=== PATIENT | female | born 1945 | race Caucasian/White ===

== ENCOUNTER 2019-10-19 14:12 | Outpatient (RCR) | payer MEDICARE, MEDICAID, SELFPAY | END 2019-10-27 00:01 | LOC: WOUND 14:12 | PROVIDERS: Family Provider Nurse Practitioner Family; Visit Provider Nurse Practitioner Family | DX: E11.621 Type 2 diabetes mellitus with foot ulcer (principal); L97.512 Non-pressure chronic ulcer of other part of right foot with fat layer exposed; E11.622 Type 2 diabetes mellitus with other skin ulcer; L97.802 Non-pressure chronic ulcer of other part of unspecified lower leg with fat layer exposed; I96 Gangrene, not elsewhere classified | CPT/HCPCS: G0463 ==

== ENCOUNTER 2019-10-30 13:23 | Outpatient (CLI) | payer MEDICARE, MEDICAID, SELFPAY ==
--- NOTE | 2019-10-30 13:49 | MR_ITS ---
WS: [id number] MRI of the right foot, 10/30/2019 Clinical Data: PERIPHERAL SENSORY NEUROPATHY DUE TO TYPE 2 DIABETES MELLITU Comparison: Right foot x-ray, 10/08/2019 Findings: There is increased abnormal signal over the distal aspect of the right second toe. This abnormal sign al could be secondary to osteomyelitis involving the distal phalanx. The remainder of the toes shows no abnormal signal. No phalangeal fractures are seen. The metatarsals and tarsals are normal. The sof t tissues show no subcutaneous abscess. MR/MR foot RT wo con* [id number] Impression: 1. Abnormal signal of the distal phalanx of the right second toe consistent wit h osteomyelitis. 2. The remainder the right foot is unremarkable.
== END 2019-10-30 13:24 | disposition home or self-care (01) ==
PROVIDERS: Family Provider Nurse Practitioner Family; PCP Nurse Practitioner Family; Visit Provider Podiatrist Foot & Ankle Surgery
DX: E11.42 Type 2 diabetes mellitus with diabetic polyneuropathy (principal)
CPT/HCPCS: 73718

== ENCOUNTER 2019-11-05 15:29 | Inpatient (IN) | payer MEDICARE, MEDICAID, SELFPAY ==
[2019-11-05 15:54] VITALS: BMI 30.9
[2019-11-05 17:02] LABS: Glucose Point of Care 210 mg/dL (70-110)
[2019-11-05 17:10] VITALS: RESP 18
--- NOTE | 2019-11-05 17:10 | USCV_ITS ---
Deisi Rivers Age: 73 Gender: F : 1945 Exam Date: 11/05/2019 18:12 Ordering Phys: Juan Bustamante MD Technologist: Exam Location: [facility] – [place]_ Indication: RT 2ND TOE AND LT 1ST TOE WOUND RIGHT LEFT Brachial 192.00 mmHg Brachial 160.00 mmHg Pressure (mmHg) Waveform Pressure (mmHg) Waveform POLITICAL GEOGRAPHER Monophasi c Monophasic DPA Monophasi c Pre-Exercise Toe Pressure 76.00 37.00 0.19 Pre-Exercise Toe/Brachial Index 0.40 FINDINGS Normal resting TBIs bilaterally No Doppler flow signals in the right posterior tibial artery CONCLUSIONS 1. Markedly diminished resting TBI on the right side, suggestive of severe peripheral arterial disease with a possible occlusion of the posterior tibial artery. 2. Abnormal resting TBI on the left side, suggestive of moderate peripheral arterial disease Dr Monica Sharma MD FACC (Electronically Signed) Final Date: 06 November 2019 19:27 S
--- NOTE | 2019-11-05 17:10 | ECG_ITS ---
Measurements Intervals [place] Rate: 97 P: 52 CA: 144 QRS: 20 QRSD: 93 T: 73 QT: 358 QTc: 455 SINUS RHYTHM WITH OCCASIONAL ECTOPIC PREMATURE COMPLEXES NONSPECIFIC ST & T-WAVE ABNORMALITY No previous ECG available for comparison Electronically Signed On 11-05-2019 19:00:49 SHOE STITCHER by Corazon Ordonez M.D. [email or web address]
--- NOTE | 2019-11-05 17:10 | XR_ITS ---
WS: [id number] Portable AP upright chest, 11/05/2019 Clinical Data: preop Comparison: None. Findings: No nodules, masses or effusions are seen. The heart is normal. The pulmonary vascularity is not increased. No pneumonia or pneumothorax is seen. The aortic arch and descending aorta show mild tortuosity. There is minimal atelectatic changes at the left costophrenic angle. XR/XR chest 1V portable [id number] Impression: Atherosclerosis.
--- NOTE | 2019-11-05 17:21 | P.HP_ITS ---
Providers/Chief Complaint Admitting Physician: Juan Bustamante MD Primary Care Provider: JAYLIN Gonzáles Chief Complaint: right 2nd toe oseomyelitis History of Present Illness Deisi Rivers is a 73 year old female with a past medical history of type 2 diabetes mellitus, insulin-dependent, chronic knee pain, iron deficiency anemia, dementia on memantine, asthma on albuterol, who presents to [facility] from a direct admit from Dr. Corral's office for concerns for osteomyelitis of the distal phalanx right second toe. Dr. Corral was admitted, for debridement tomorrow, medical service has been consulted for medical management. Patient denies any chest pain, palpitations, lightheadedness, dizziness, shortness of breath, abdominal pain. Denies any significant cardiac history, denies history of stents, denies a history of heart failure. Denies a history of blood clots. Denies a history of COPD. Denies history of smoking. Denies any history with anesthesia in the past. Review of Systems Const: Denies: fever or chills Eyes: Denies: blurry vision ENMT: Denies: nasal discharge Card: Denies: chest pain, palpitations, irregular heart rhythm, lightheadedness or syncope Resp: Denies: shortness of breath, productive cough or non-productive cough GI: Denies: abdominal pain, nausea or vomiting : Denies: flank pain, difficulty urinating or painful urination Musc: Denies: neck pain or back pain Skin/Breast: Denies: rash Neuro: Denies: headache, weakness in extremities or dizziness Psych: Reports: memory loss; Denies: anxiety or depression Endo: Denies: excessive urination or excessive thirst Medications/Allergies Allergies Allergy/AdvReac Type Severity Reaction Status Date / Time citalopram [From Celexa] Allergy ALGY-Hives Verified 11/05/19 11:33 meloxicam Allergy ALGY-Hives Verified 11/05/19 11:33 shellfish derived Allergy ALGY-Difficulty Verified 11/05/19 11:33 Swallowing Additional Medication Information Additional Medication Information: Aspirin 81 mg once daily Celecoxib 200 mg twice daily Vitamin D3 Ferrous sulfate 325 twice daily Hydroxyzine 25 mg at bedtime Levemir 25 units at bedtime 70 30 70 units every morning, 45 units at supper Memantine 28 daily Metformin thousand twice daily Sertraline 50 mg at bedtime Crestor 20 mg once daily Omeprazole 20 mg twice daily PFSH Acute PFSH: Statuses (acute, chronic, etc) shown below reflect problem list status as previously entered and may not be historically accurate Medical History (Updated 11/05/19 @ 17:40 by Juan Bustamante MD) Dementia (Acute) Neuropathy (Acute) Post-tonsillectomy pain (Acute) PVD (peripheral vascular disease) (Acute) Type 2 diabetes mellitus with diabetic polyneuropathy (Acute) Surgical History (Updated 11/05/19 @ 17:40 by Juan Bustamante MD) History of tonsillectomy (Acute) Social History Smoking and tobacco status: never smoked Second hand smoke exposure: No Alcohol intake: never Vitals/I&O/Wt Weight last 48 hrs Weight 97.976 kg Physical Exam Const: COMMON NORMALS: no apparent distress and no limitations EXAM LIMITATIONS: no altered mental status GENERAL APPEARANCE: cooperative and comfortable HENMT: COMMON NORMALS: normocephalic Eye: COMMON NORMALS: PERRL and EOMs intact bilaterally Neck/C-Spine: COMMON NORMALS: full ROM, no lymphadenopathy and no JVD Lymph: LYMPHATIC: no lymphadenopathy noted Resp: COMMON NORMALS: normal respiratory effort, no retractions, no use of accessory muscles and clear to auscultation bilaterally Cardio: COMMON NORMALS: no JVD, regular rate, regular rhythm, S1 normal heart sound, S2 normal heart sound and peripheral pulses 2+ throughout (1+ DP PT pulses bilaterally) GI: COMMON NORMALS: normal to inspection, nondistended, normoactive bowel sounds, soft to palpation, non-tender, no hepatosplenomegaly, no masses and no bruits : COMMON NORMALS: Yes no CVA tenderness Back/Pelvis: COMMON NORMALS: no CVA tenderness and thoracic and lumbar spine normal to inspection Extremity: COMMON NORMALS: normal capillary refill, no clubbing, cyanosis or edema and no pedal edema NARRATIVE EXTREMITY EXAM: Right lower extremity, right foot, second digit, erythema/swelling/overlying skin changes of the digit Left foot, first digit, erythema/swelling, overlying skin changes of the digit Left villarreal, erythema, swelling, 2 x 2 cm, round Neuro: COMMON NORMALS: CN's II-XII intact bilaterally, moves all extremities, no focal motor deficits and no sensory deficits noted SENSORIUM/ORIENTATION: Yes alert, Yes oriented to person and Yes oriented to place SPEECH: speech normal MOTOR EXAM: strength 5/5 throughout Psych: COMMON NORMALS: mental status grossly normal APPEARANCE: Yes grossly normal ATTITUDE: Yes calm MEMORY/COGNITION: Yes memory grossly impaired Impared memory type(s): short term A&P Assessment and plan (1) Osteomyelitis of foot: -Right foot, second digit shows Abnormal signal of the distal phalanx of the right second toe consistent with osteomyelitis -Will have a debridement by Dr. Corral in the operating room tomorrow -Postoperative risk: -No history of CAD, no history of CHF, no history of COPD, no history of DVT or PE, no history of abnormal anesthesia reactions. No active chest pain, no shortness of breath. Does report history of carotid artery disease 10 years ago, status post carotid endarterectomy. No lightheadedness, no dizziness. -EKG shows normal sinus rhythm, PVCs, no significant ST-T wave changes, NC interval 144 ms, QTC 455 ms -Patient is a intermediate risk for low risk procedure Plan: -N.p.o. midnight, IV fluids over midnight -Surgical procedure tomorrow by Dr. Corral -We will obtain ABIs bilateral lower extremities -Hemoglobin A1c, CBC, CMP set, CRP, ESR, chest x-ray Status: Acute Code(s): M86.9 - Osteomyelitis, unspecified (2) Depression: Status: Acute Code(s): F32.9 - Major depressive disorder, single episode, unspecified Attestations Medical Necessity Statement*: Patient requires hospitalization, inpatient, greater than 2 minutes, for right foot osteomyelitis Coding Level of Care Code Acute Manager Property for [facility] Fwd Exam Problem Focused Diagnoses Osteomyelitis of foot M86.9 Depression F32.9
[2019-11-05] MEDS: heparin 5,000 unit/mL INJ 1 mL 5000 UNIT SUBCUT (17:51)
[2019-11-05] MEDS: sertraline 50 mg Tablet PO (17:51)
[2019-11-05] MEDS: pantoprazole DR 40 mg Tablet PO (17:52)
[2019-11-05] MEDS: ferrous sulfate EC 325 mg Tablet PO (17:52)
[2019-11-05 18:18] LABS: Basophils # 0.1 10^3/uL (0.0-0.1); Basophils % 0.7 %; Eosinophils # 0.4 10^3/uL (0.0-0.8); Eosinophils % 3.4 %; Hematocrit 34.2 % (37.0-47.0); Hemoglobin 9.9 g/dL (11.5-15.3); Lymphocytes # 2.2 10^3/uL (0.8-4.8); Lymphocytes % 19.9 %; Mean Corpuscular HGB Conc 28.9 g/dL (30.0-36.0); Mean Corpuscular Volume 93.2 fL (81-99); Mean Platelet Volume 9.2 fL (7.4-10.4); Monocytes # 0.7 10^3/uL (0.2-0.9); Monocytes % 6.5 %; Neutrophils # 7.6 10^3/uL (1.8-7.7); Neutrophils % 69.2 %; Nucleated Red Blood Cells % 0 %; Platelet Count 392 10^3/cmm (130-400); Red Blood Count 3.67 10^6/uL (4.1-5.3); Red Cell Distribution Width 18.6 % (12.1-15.1)
[2019-11-05 18:29] LABS: Alanine Aminotransferase 15 U/L (0-33); Albumin Level 3.7 g/dL (3.5-5.2); Alkaline Phosphatase 84 IU/L (35-105); Aspartate Amino Transferase 21 U/L (0-32); Blood Urea Nitrogen 34 mg/dL (8-23); C Reactive Protein 4.6 mg/L (0.0-4.9); Calcium 9.6 mg/Dl (8.8-10.2); Carbon Dioxide 26 mmol/L (22-29); Chloride 103 mmol/L (98-107); Glucose 242 mg/dL (74-106); Sodium 142 mmol/L (136-145); Total Bilirubin 0.2 mg/dL (0.15-1.2); Total Protein 7.7 g/dL (6.6-8.7)
--- NOTE | 2019-11-05 18:34 | XR_ITS ---
WS: [id number] Left foot, 3 views, 11/05/2019 Clinical Data: Left hallux wound Comparison: Left foot, 10/08/2019. Findings: No fractures or dislocations are seen. No bone destruction or erosion is noted. The joint spaces and soft tissues are normal. There is a dressing surrounding the left great toe. A small Achilles spur is present. XR/XR foot LT min 3V* [id number] Impression: Negative for osteomyelitis or fracture.
[2019-11-05 18:50] LABS: Estmated Average Glucose 134; Hemoglobin A1C 6.3 % (4.0-6.0)
[2019-11-05 18:57] LABS: Procalcitonin 0.04 ng/mL (0-0.8)
[2019-11-05 19:14] LABS: Erythrocyte Sedimentation Rate 84 mm/hr (0-15)
[2019-11-05 20:00] VITALS: BP 167/85; PULSE 105; RESP 20; TEMP 36.7; O2SAT 93
[2019-11-05 21:18] LABS: Glucose Point of Care 279 mg/dL (70-110)
[2019-11-05] MEDS: hyDROXYzine 25 mg Capsule PO (21:42)
[2019-11-05] MEDS: dextrose 5%-sod chloride 0.9% 1,000 ML 100 ML IV (22:15)
[2019-11-06] VITALS (18 sets, daily range): BP systolic 110–198; BP diastolic 64–110; PULSE 80–116; RESP 10–20; TEMP 36.2–37.3; O2SAT 91–99
[2019-11-06 04:44] LABS: Basophils # 0.1 10^3/uL (0.0-0.1); Basophils % 0.8 %; Eosinophils # 0.3 10^3/uL (0.0-0.8); Eosinophils % 3.8 %; Hemoglobin 8.9 g/dL (11.5-15.3); Lymphocytes # 2.5 10^3/uL (0.8-4.8); Lymphocytes % 28.8 %; Mean Corpuscular HGB Conc 29.7 g/dL (30.0-36.0); Mean Corpuscular Hemoglobin 27.3 pg (28.0-34.0); Mean Platelet Volume 9.5 fL (7.4-10.4); Monocytes # 0.7 10^3/uL (0.2-0.9); Monocytes % 8.4 %; Neutrophils % 57.9 %; Nucleated Red Blood Cells % 0 %; Platelet Count 343 10^3/cmm (130-400); Red Blood Count 3.26 10^6/uL (4.1-5.3); Red Cell Distribution Width 18.3 % (12.1-15.1); White Blood Count 8.7 10^3/uL (4.0-10.0)
[2019-11-06 05:39] LABS: Alanine Aminotransferase 10 U/L (0-33); Albumin Level 3.2 g/dL (3.5-5.2); Alkaline Phosphatase 66 IU/L (35-105); Anion Gap 12.7 (5-19); Aspartate Amino Transferase 13 U/L (0-32); Blood Urea Nitrogen 29 mg/dL (8-23); Calcium 9.1 mg/Dl (8.8-10.2); Carbon Dioxide 26 mmol/L (22-29); Chloride 104 mmol/L (98-107); Globulin 3.1 g/dL (1.3-4.6); Glucose 300 mg/dL (74-106); Potassium 4.7 mmol/L (3.5-5.1); Sodium 138 mmol/L (136-145); Total Bilirubin 0.3 mg/dL (0.15-1.2); Total Protein 6.3 g/dL (6.6-8.7)
--- NOTE | 2019-11-06 06:34 | P.PN_ITS ---
Subjective Subjective: Interval history: Patient seen bedside in preop her son and daughter are present. She has been n.p.o. since midnight in preparation for right second toe amputation secondary to osteomyelitis. Patient denies any acute events overnight. Patient denies any subjective nausea, vomiting, fever, chills, shortness of breath or chest pain. Vitals/I&O/Wt Last Vital Signs Temp 97.5 F L 11/06/19 04:00 Pulse 95 11/06/19 04:00 Resp 18 11/06/19 04:00 BP 161/79 11/06/19 04:00 Pulse Ox 97 11/06/19 04:00 11/05/19 11/05/19 11/06/19 14:59 22:59 06:59 Intake Total 240 / 240 Output Total 301 / 301 Balance 240 / 240 -301 / -61 Weight last 48 hrs Weight 208 lb 11.2 oz Weight 216 lb Physical Exam Narrative: EXAM NARRATIVE: Patient is alert and oriented ?3 and in no acute distress. The following is a focused bilateral lower extremity exam. Patient is accompanied by her daughter. VASCULAR: Dorsalis pedis artery is faintly palpable bilaterally. Posterior tibial artery palpable +2 bilaterally. Capillary refill time less than 3 seconds to the distal hallux bilaterally. Calf is supple and nontender proximally and distally. Decreased pedal hair growth noted bilateral lower extremity. Pitting edema to the lower extremities bilaterally. NEUROLOGICAL: Protective sensation intact 0/10 sites, tested with [place] [employer] monofilament to bilateral feet. DERMATOLOGICAL: Full-thickness wound to right second toe nailbed with absent nail measures 1 cm x 1 cm x 0.2 cm there is also a wound to the dorsum of the right second toe at the level of the proximal interphalangeal joint measuring 2.4 cm x 0.2 cm x 0.2 cm which is macerated, localized erythema to the right second toe, serous drainage present. There is a wound to the left dorsal midfoot measures 0.8 cm x 0.4 cm x 0.1 cm, left dorsal hallux wound measures 0.6 cm x 0.4 cm x 0.1 cm, these wounds demonstrate epithelialized margin no purulent drainage no surrounding erythema. New wound to left anterior leg consistent wit h venous insufficiency with serous drainage no purulence or surrounding erythema. There is a wound to the lateral left midfoot limited to breakdown of skin measures 1.3 cm x 1.3 cm. Lower extremity integument is thin and atrophic with decreased texture and turgor has shiny appearance. Rubor to bilateral feet more prominent at the toes. MUSCULOSKELETAL: Muscle strength 5 out of 5 in all 3 cardinal planes to bilateral foot and ankle. No pain with posterior calf squeeze bilaterally. Tenderness to palpation at noted wounds. A&P Assessment and plan (1) Osteomyelitis of foot: Planning on partial amputation right second toe secondary to osteomyelitis at distal phalanx. Will disarticulated at proximal interphalangeal joint this will be 2 joints back from distal phalanx and should be curative planning on 2 weeks of oral antibiotics on discharge if clean margins are obtained. Patient n.p.o. since midnight in preparation for surgery today. 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
[2019-11-06 06:48] LABS: Glucose Point of Care 274 mg/dL (70-110)
[2019-11-06] MEDS: pantoprazole DR 40 mg Tablet PO (08:50)
[2019-11-06] MEDS: dextrose 5%-sod chloride 0.9% 1,000 ML 100 ML IV (08:50)
[2019-11-06] MEDS: ferrous sulfate EC 325 mg Tablet PO ×2 (08:50→18:38)
[2019-11-06 11:39] LABS: Glucose Point of Care 262 mg/dL (70-110)
[2019-11-06 13:14] LABS: Ferritin 22 ng/mL (15-150); Iron 46 ug/dL (37-145); Percent Saturation 15.7 % (20-50); Total Iron Binding Capacity 292 mg/dL; Unsaturated Iron Binding 246 ug/dL (112-347)
--- NOTE | 2019-11-06 13:23 | ANES.PREANES ---
Pre-Anesthetic Assessment Pre-Anesthetic Assessment: Height/Weight: Height 1.78 m Weight 94.665 kg Temp Pulse Resp BP Pulse Ox 97.9 F 86 18 164/67 98 11/06/19 11:34 11/06/19 11:34 11/06/19 11:34 11/06/19 11:34 11/06/19 11:34 Preop Diagnosis: R 2nd toe - infection Proposed Procedure: Operation Date: 11/06/19 13:45 Proposed Procedures p Amputation Toe/s right second toe amputation(Right) - Lenin Corral DPM Operation Date: 11/06/19 14:40 Proposed Procedures p Amputation Toe/s(Right) - Lenin Corral DPM Familial anesthetic complications: No trouble with anesthesia Was Beta Michele taken within 24 hours: N/A Last intake: Intake Last Liquid Date 11/05/19 Last Liquid Time 22:00 Last Solid Date 11/05/19 Last Solid Time 17:00 Social: Social History: No alcohol and No tobacco Exam: Pre-Anes Outpt Exam: alert Airway: Cervical ROM: WNL MP: 2 Additional comments: missing teeth Pulmonary: Pulmonary: None reported CV/HEM: CV/HEM: HTN : : None reported Hepatic: Hepatic: None reported GI: GI: GERD Metabolic: Metabolic: DM and Morbid obesity Musc/skel: Comments: R 2nd toe infection Neuropsych: Neuropsych: None reported Anesthetic Plan: ASA status: II Anesthesia: MAC Risk of > 500 ml blood loss (7ml/kg in children): No Meds/Allergies Current Medications: Current Medications Generic Name Dose Route Start Last Admin Trade Name Freq PRN Reason Stop Dose Admin Ferrous Sulfate 325 mg 11/05/19 18:00 11/06/19 08:50 Ferrous Sulfate PO 325 mg BID ASTON Administration Heparin Sodium (Be ef Lung) 5,000 unit 11/05/19 17:15 11/06/19 08:50 Heparin SUBCUT Not Given Q8H ASTON Hydroxyzine Pamoat e 25 mg 11/05/19 21:00 11/05/19 21:42 Vistaril PO 25 mg BEDTIME ASTON Administration Dextrose/Sodium Ch loride 1,000 mls @ 100 m ls/hr 11/05/19 18:35 11/06/19 08:50 Dextrose 5%-Sod Chloride 0.9% IV 100 mls/hr .Q10H ASTON Administration Insulin Detemir 20 unit 11/05/19 21:00 11/05/19 21:50 Levemir SUBCUT 20 unit BEDTIME ASTON Administration Non-Formulary Medi cation 28 mg 11/06/19 09:00 11/06/19 08:48 Memantine PO Not Given DAILY ASTON Pantoprazole Sodiu m 40 mg 11/06/19 09:00 11/06/19 08:50 Protonix PO 40 mg DAILY ASTON Administration Sertraline HCl 50 mg 11/05/19 17:15 11/05/19 17:51 Zoloft PO 50 mg Q24H ASTON Administration Additional Medication Information: Aspirin 81 mg once daily Celecoxib 200 mg twice daily Vitamin D3 Ferrous sulfate 325 twice daily Hydroxyzine 25 mg at bedtime Levemir 25 units at bedtime 70 30 70 units every morning, 45 units at supper Memantine 28 daily Metformin thousand twice daily Sertraline 50 mg at bedtime Crestor 20 mg once daily Omeprazole 20 mg twice daily PFSH Anesthesia PFSH: Medical History (Updated 11/05/19 @ 17:40 by Juan Bustamante MD) Dementia (Acute) Neuropathy (Acute) Post-tonsillectomy pain (Acute) PVD (peripheral vascular disease) (Acute) Type 2 diabetes mellitus with diabetic polyneuropathy (Acute) Surgical History (Updated 11/05/19 @ 17:40 by Juan Bustamante MD) History of tonsillectomy (Acute) Social History Smoking and tobacco status: never smoked Second hand smoke exposure: No Alcohol intake: never Data Anesthesia Labs: Other Labs: Laboratory Results - last 48 hr 11/05/19 11/05/19 11/05/19 16:44 18:05 18:05 WBC 11.0 H RBC 3.67 L Hgb 9.9 L Hct 34.2 L MCV 93.2 MCH 27.0 L MCHC 28.9 L RDW 18.6 H Plt Count 392 MPV 9.2 Neut % (Auto) 69.2 Lymph % (Auto) 19.9 [place] % (Auto) 6.5 Eos % (Auto) 3.4 Baso % (Auto) 0.7 Reticulocyte % (Au to) Neut # (Auto) 7.6 Lymph # (Auto) 2.2 [place] # (Auto) 0.7 Eos # (Auto) 0.4 Baso # (Auto) 0.1 Nucleated RBC % (a uto) 0 Nucleated RBCs # 0.0 ESR 84 H PT INR Sodium Potassium Chloride Carbon Dioxide Anion Gap BUN Creatinine Glucose POC Glucose 210 Estimat Average Gl ucose Hemoglobin A1c Calcium Iron TIBC % Saturation Unsat Iron Binding Ferritin Total Bilirubin AST ALT Alkaline Phosphata se C-Reactive Protein Total Protein Albumin Globulin Procalcitonin 11/05/19 11/05/19 11/05/19 18:05 18:05 18:05 WBC RBC Hgb Hct MCV MCH MCHC RDW Plt Count MPV Neut % (Auto) Lymph % (Auto) [place] % (Auto) Eos % (Auto) Baso % (Auto) Reticulocyte % (Au to) Neut # (Auto) Lymph # (Auto) [place] # (Auto) Eos # (Auto) Baso # (Auto) Nucleated RBC % (a uto) Nucleated RBCs # ESR PT 12.40 INR 0.90 Sodium 142 Potassium 5.0 Chloride 103 Carbon Dioxide 26 Anion Gap 18.0 BUN 34 H Creatinine 1.4 H Glucose 242 H POC Glucose Estimat Average Gl ucose 134 Hemoglobin A1c 6.3 H Calcium 9.6 Iron TIBC % Saturation Unsat Iron Binding Ferritin Total Bilirubin 0.2 AST 21 ALT 15 Alkaline Phosphata se 84 C-Reactive Protein 4.6 Total Protein 7.7 Albumin 3.7 Globulin 4.0 Procalcitonin 0.04 11/05/19 11/06/19 11/06/19 21:13 03:50 03:50 WBC 8.7 RBC 3.26 L Hgb 8.9 L Hct 30.0 L MCV 92.0 MCH 27.3 L MCHC 29.7 L RDW 18.3 H Plt Count 343 MPV 9.5 Neut % (Auto) 57.9 Lymph % (Auto) 28.8 [place] % (Auto) 8.4 Eos % (Auto) 3.8 Baso % (Auto) 0.8 Reticulocyte % (Au to) Neut # (Auto) 5.0 Lymph # (Auto) 2.5 [place] # (Auto) 0.7 Eos # (Auto) 0.3 Baso # (Auto) 0.1 Nucleated RBC % (a uto) 0 Nucleated RBCs # 0.0 ESR PT INR Sodium 138 Potassium 4.7 Chloride 104 Carbon Dioxide 26 Anion Gap 12.7 BUN 29 H Creatinine 1.4 H Glucose 300 H POC Glucose 279 Estimat Average Gl ucose Hemoglobin A1c Calcium 9.1 Iron TIBC % Saturation Unsat Iron Binding Ferritin Total Bilirubin 0.3 AST 13 ALT 10 Alkaline Phosphata se 66 C-Reactive Protein Total Protein 6.3 L Albumin 3.2 L Globulin 3.1 Procalcitonin 11/06/19 11/06/19 11/06/19 03:50 03:50 06:32 WBC RBC Hgb Hct MCV MCH MCHC RDW Plt Count MPV Neut % (Auto) Lymph % (Auto) [place] % (Auto) Eos % (Auto) Baso % (Auto) Reticulocyte % (Au to) 3.5100 Neut # (Auto) Lymph # (Auto) [place] # (Auto) Eos # (Auto) Baso # (Auto) Nucleated RBC % (a uto) Nucleated RBCs # ESR PT INR Sodium Potassium Chloride Carbon Dioxide Anion Gap BUN Creatinine Glucose POC Glucose 274 Estimat Average Gl ucose Hemoglobin A1c Calcium Iron 46 TIBC 292 % Saturation 15.7 L Unsat Iron Binding 246 Ferritin 22 Total Bilirubin AST ALT Alkaline Phosphata se C-Reactive Protein Total Protein Albumin Globulin Procalcitonin 11/06/19 11:32 WBC RBC Hgb Hct MCV MCH MCHC RDW Plt Count MPV Neut % (Auto) Lymph % (Auto) [place] % (Auto) Eos % (Auto) Baso % (Auto) Reticulocyte % (Au to) Neut # (Auto) Lymph # (Auto) [place] # (Auto) Eos # (Auto) Baso # (Auto) Nucleated RBC % (a uto) Nucleated RBCs # ESR PT INR Sodium Potassium Chloride Carbon Dioxide Anion Gap BUN Creatinine Glucose POC Glucose 262 Estimat Average Gl ucose Hemoglobin A1c Calcium Iron TIBC % Saturation Unsat Iron Binding Ferritin Total Bilirubin AST ALT Alkaline Phosphata se C-Reactive Protein Total Protein Albumin Globulin Procalcitonin Cardiac Studies: No Data to Display
[2019-11-06 13:30] LABS: Folate Level 16.6 ng/mL (4.8-37.3); Vitamin B12 1041 pg/mL (232-1245)
[2019-11-06] MEDS: sodium chloride 0.9% 1,000 ML 30 ML IV (13:40)
--- NOTE | 2019-11-06 15:57 | ANE.PACU ---
 Inpatient post-anesthesia follow up: Airway intact: Yes Vital signs: Temperature 97.4 F Pulse Rate [Left R adial] 98 Pulse Rate 94 Respiratory Rate 18 Blood Pressure [Le ft Arm] 198/110 Pulse Oximetry 98 Oxygen Delivery Me thod [ Room Air Current Rate & Del desirae] Oxygen Delivery Me thod Room Air Oxygen Flow Rate Fraction of Inspir ed Oxygen Hydration adequate: Yes Nausea and vomiting: No Mental status: Baseline
--- NOTE | 2019-11-06 15:58 | XR_ITS ---
WS: [id number] Right foot, 3 views, 11/06/2019 Clinical Data: post op Comparison: Right foot, 10/08/2019 Findings: The skull phalanx right second toe has been amputated. In addition a portion of the distal part of th e right second proximal phalanx has also been removed. The remainder of the phalanges is normal. The metatarsals and tarsals show no abnormalities. There is a plantar spur. XR/XR foot RT min 3V* [id number] Impression: Partial amputation of right second toe with with removal of the distal phalanx and removal of the distal portion of the proximal phalanx.
--- NOTE | 2019-11-06 16:01 | P.OP_ITS ---
Operative Report Post-Operative Note Date of procedure: 11/06/19 Preop Diagnosis: Osteomyelitis right foot second toe distal phalanx Post-op diagnosis: same Post-op Findings: Devitalized distal phalanx right second toe Procedure Done: Partial amputation right second toe disarticulated at the proximal interphalangeal joint. Implants: No implants Specimens removed/disposition: Distal phalanx right second toe sent to microbiology for culture and sensitivity. Pathology: other (Distal right second toe sent to pathology) Surgeon: Lenin Corral Anesthesia: MAC and other (Right second ray block 10 cc of 0.5% Marcaine plain) Estimated blood loss (mL): 5 IV fluids (mL): 0 Urine output (mL): 0 Complications: None Findings: Devitalized distal phalanx right second toe. Viable margins intraoperatively at proximal phalanx right second toe. Condition: stable Disposition: floor Operative Report Brief History: Patient has chronic wound right second toe MRI confirms osteomyelitis clinically wound has history of positive probe to bone test. Recommended partial amputation right second toe patient is agreeable wishes to proceed. Risks include pain, bleeding, numbness, infection, need for higher levels of amputation. Transfer pressure transfer lesions and loss of function. Patient wishes to proceed. Procedure: Under mild sedation the patient was brought to the operating room and placed on the operating table in supine position. A timeout was performed. Anesthesia was administered by the anesthesia service. Local anesthesia was injected by myself as above. Well-padded pneumatic tourniquet was applied to the patient's right ankle. Right lower extremity was then scrubbed, prepped and draped utilizing normal aseptic technique. Tourniquet was then inflated to 250 mmHg. Attention was directed to the dorsum of the right second toe where a 15 blade was utilized to perform a fish[place] incision full-thickness down to bone encompassing adequate soft tissue for removal of all devitalized tissue. Also there was adequate tissue for closure without tension. The right second toe was disarticulated at the proximal interphalangeal joint and the distal phalanx was sharply excised on the back table this was sent to microbiology for culture and sensitivity. The remainder of the distal aspect of the right second toe was sent to pathology for permanent. The incision site was flushed with copious amounts of sterile saline solution. Proximal phalanx of the right second toe ap peared to be viable with appropriate color and density. Extensor and flexor tendons were transected at the most proximal margin. Further irrigation was performed with saline followed by closure consisting of 4-0 Vicryl for subcutaneous tissue. Skin was closed with 4-0 nylon. Incision site was dressed with Adaptic, sterile 4 x 4's, Kerlix and Prashanth wrap. Postop shoe was applied. Tourniquet was deflated and a hyperemic response was noted to the distal digits of the right foot remaining. Patient tolerated the procedure well and was transferred to the PACU with vital signs stable and vascular status intact. Following a period of postoperative monitoring she will be transferred back to the floor and is awaiting placement for rehab facility. At this time will be appropriate to begin antibiotics will discuss with hospitalist.
--- NOTE | 2019-11-06 16:42 | PC.NURSE ---
Pt back to room from OR at this time. Pt alert and oriented x3. Dressings intact to bilat feet. Voices 0 questions/concerns,
--- NOTE | 2019-11-06 16:57 | PC.CHAP ---
Pastoral Care Encounter/Spiritual Assessment Type of Contact [] Declined case manager visit [] Patient/Family/Request visit [] Outpatient visit [] Follow-up visit [] Physician referral [] Code/Alert [] Routine visit [] Staff referral [] Actively dying [] Patient sleeping [] Family support [] [x] Out of room [] Palliative care [] [] Receiving care in room [] Pre-surgical visit [] Trauma [] Long length of stay [] ICU visit [] Other: Relational/Emotional Strength [] Patient feels connected with others/family/visitors/staff [] Distress [] Loneliness/isolation [] Abandonment Spirituality of Patient [] Person of Elaina [] Attends Mu-Ism of their Elaina [] Believes in Prayer [] Reads Bible or Sikhism materials [] There are Spiritual issues to be addressed Self Defense Instructor Interventions [] Prayer [] Active listening [] Non-anxious presence [] Spiritual/emotional support [] Crisis/trauma care [] Spiritual counseling [] Bereavement support [] Provided bereavement packet [] Provided Bible/devotional materials [] Provided toy/stuffed animal, coloring book to patient or family member [] Completed spiritual assessment [] Provided Communion [] Anointing/Corinne [] Salvation [] Other: Impact on Illness or Injury [] Angry [] Fearful [] Anxious [] Often cries [] Exhaustion [] Unable to work [] Unable to attend shinto [] Unable to walk/stand [] Unable to read [] Unable to drive [] Unable to eat/drink [] Unable to sleep [] Unable to be with family [] Other: Summary patient was out of room, will revisit. Time spent with patient
--- NOTE | 2019-11-06 18:10 | PC.PHAR ---
Pharmacokinetic dosing service Date: Time: Objective: Patient: Floor: Age: 73 yo Serum creatinine: 1.4 mg/dL Height: 70.1 Inches Weight (kg): 95 VANCOMYCIN 1500 MG Q 24 H PER PHARMACY PROTOCOL Assessment: IBW (kg): 68.73 Dosing wt(kg): 95 Estimated Creatinine clearance (ml/min): 44.1 CRCL method: Cockcroft and Gault using adjusted body weight Drug selected: Vancomycin Loading dose (mg): Vd (liters): 66.5 (factor used: 0.7 L/kg) Akhil (hr-1): 0.041 Half life (hrs): 16.91 CLvanco= 2.727 L/hr Recommended dose: 1500 mg Interval: 24 hrs Infusion time (hrs): 1 Predicted peak (mcg/mL): 35.3 Predicted trough (mcg/mL): 13.75 Total body weight is being used for vancomycin dosing. Recommendations: Give Vancomycin 1500 mg q 24 hrs with an expected Cpeak of 35.3 mcg/ml and an expected Ctrough of 13.75 mcg/ml Thank you for the consult, will continue to follow.
[2019-11-06] MEDS: sertraline 50 mg Tablet PO (18:38)
[2019-11-06] MEDS: heparin 5,000 unit/mL INJ 1 mL 5000 UNIT SUBCUT (18:39)
[2019-11-06] MEDS: insulin aspart 70/30 100 units/1 mL 30 UNIT SUBCUT (18:39)
--- NOTE | 2019-11-06 19:11 | P.PN_ITS ---
Subjective Subjective: Interval history: This morning patient is sitting up in bed, family at bedside, is a bit anxious about her surgical procedure this morning, has no significant complaints, no fevers, no chills, no nausea, no vomiting Vitals/I&O/Wt Last Vital Signs Temp 97.9 F 11/06/19 17:00 Pulse 85 11/06/19 17:00 Resp 18 11/06/19 17:00 BP 179/79 11/06/19 17:00 Pulse Ox 97 11/06/19 17:00 11/06/19 11/06/19 11/06/19 06:59 14:59 22:59 Intake Total 1000 / 1000 0 / 1000 Output Total 301 / 301 Balance -301 / -61 1000 / 1000 -5 Weight last 48 hrs Weight 94.665 kg Weight 97.976 kg Physical Exam Const: COMMON NORMALS: no apparent distress, no limitations and alert EXAM LIMITATIONS: no altered mental status GENERAL APPEARANCE: cooperative and comfortable ORIENTATION/CONSCIOUSNESS: Yes oriented to person and Yes oriented to place Neck/C-Spine: COMMON NORMALS: full ROM, no lymphadenopathy and no JVD Lymph: LYMPHATIC: no lymphadenopathy noted Resp: COMMON NORMALS: normal respiratory effort, no retractions, no use of accessory muscles and clear to auscultation bilaterally AUSCULTATION: clear to auscultation bilaterally Cardio: COMMON NORMALS: no JVD, regular rate, regular rhythm, S1 normal heart sound, S2 normal heart sound and peripheral pulses 2+ throughout (1+ DP PT pulses bilaterally) RATE: regular rate RHYTHM: regular rhythm HEART SOUNDS: S1 normal and S2 normal PERIPHERAL PULSES: pulses 2+ throughout (1+ DP PT pulses bilaterally) GI: COMMON NORMALS: normal to inspection, nondistended, normoactive bowel sounds, soft to palpation, non-tender, no hepatosplenomegaly, no masses and no bruits PALPATION: Yes soft and Yes no hepatosplenomegaly Extremity: COMMON NORMALS: normal capillary refill, no clubbing, cyanosis or edema and no pedal edema NARRATIVE EXTREMITY EXAM: Right lower extremity, right foot, second digit, erythema/swelling/overlying skin changes of the digit Left foot, first digit, erythema/swelling, overlying skin changes of the digit Left villarreal, erythema, swelling, 2 x 2 cm, round Neuro: SENSORIUM/ORIENTATION: Yes alert, Yes oriented to person and Yes oriented to place Psych: COMMON NORMALS: mental status grossly normal APPEARANCE: Yes grossly normal ATTITUDE: Yes calm MEMORY/COGNITION: Yes memory grossly impaired Impared memory type(s): short term A&P Assessment and plan (1) Osteomyelitis of foot: -Right foot, second digit shows Abnormal signal of the distal phalanx of the right second toe consistent with osteomyelitis -Will have a debridement by Dr. Corral in the operating room tomorrow -Postoperative risk: -No history of CAD, no history of CHF, no history of COPD, no history of DVT or PE, no history of abnormal anesthesia reactions. No active chest pain, no shortness of breath. Does report history of carotid artery disease 10 years ago, status post carotid endarterectomy. No lightheadedness, no dizziness. -EKG shows normal sinus rhythm, PVCs, no significant ST-T wave changes, IN interval 144 ms, QTC 455 ms -Patient is a intermediate risk for low risk procedure Plan: -On IV fluids -Surgical procedure today by Dr. Corral -We will start broad-spectrum antibiotics tonight -We will obtain ABIs bilateral lower extremities Status: Acute Code(s): M86.9 - Osteomyelitis, unspecified (2) Depression: Status: Acute Code(s): F32.9 - Major depressive disorder, single episode, unspecified (3) Type 2 diabetes mellitus with diabetic polyneuropathy: -Patient's hemoglobin A1c is 6.2, but I believe this is falsely low given her anemia as her blood sugars are quite elevated Plan: -Continue Levemir 20 units at bedtime (takes 25 units at bedtime) -Continue 70/30 30 units at bedtime (takes 45 units at bedtime) -We will continue 70/30 60 units in the morning (takes 70 units at bedtime) Status: Acute Code(s): E11.42 - Type 2 diabetes mellitus with diabetic polyneuropathy (4) Anemia: Hemoglobin 8.9 Patient daughter states that her hemoglobin has gone as low as 7, but did not receive transfusion No history of EGD or colonoscopy, no complaints of bloody stools Is on iron replacement Plan: -Monitor hemoglobin, Hemoccult stool, iron studies Status: Acute Code(s): D64.9 - Anemia, unspecified Attestations Medical Necessity Statement*: She requires continued hospitalization for right toes osteomyelitis, requiring IV antibiotics surgical debridement Coding Level of Care Code Acute Harvest Supervisor for [facility] Fwd Diagnoses Osteomyelitis of foot M86.9 Depression F32.9 Type 2 diabetes mellitus with diabetic polyneuropathy E11.42 Anemia D64.9
[2019-11-06] MEDS: piperacillin-tazobactam 3.375 GM in sodium chloride 0.9% (plus) 50 ML IV (22:12)
[2019-11-06] MEDS: atorvastatin 40 mg Tablet PO (22:14)
[2019-11-06] MEDS: hyDROXYzine 25 mg Capsule PO (22:14)
[2019-11-06 23:23] LABS: Glucose Point of Care 282 mg/dL (70-110)
[2019-11-07] VITALS: BP 138/74; PULSE 89; RESP 18; TEMP 37.3; O2SAT 92
[2019-11-07] MEDS: dextrose 5%-sod chloride 0.9% 1,000 ML 100 ML IV (01:54)
[2019-11-07] MEDS: heparin 5,000 unit/mL INJ 1 mL 5000 UNIT SUBCUT ×3 (01:54→17:41)
[2019-11-07 02:29] LABS: Glucose Point of Care 257 mg/dL (70-110)
[2019-11-07 04:00] VITALS: BP 162/77; PULSE 110; RESP 20; TEMP 36.7; O2SAT 90
[2019-11-07] MEDS: piperacillin-tazobactam 3.375 GM in sodium chloride 0.9% (plus) 50 ML IV ×3 (04:10→22:10)
[2019-11-07 05:55] LABS: Basophils # 0.1 10^3/uL (0.0-0.1); Basophils % 0.7 %; Eosinophils # 0.3 10^3/uL (0.0-0.8); Eosinophils % 4.1 %; Hematocrit 30.4 % (37.0-47.0); Hemoglobin 9.1 g/dL (11.5-15.3); Lymphocytes # 1.8 10^3/uL (0.8-4.8); Lymphocytes % 21.5 %; Mean Corpuscular HGB Conc 29.9 g/dL (30.0-36.0); Mean Corpuscular Volume 96.8 fL (81-99); Mean Platelet Volume 9.4 fL (7.4-10.4); Monocytes # 0.6 10^3/uL (0.2-0.9); Monocytes % 7.5 %; Neutrophils # 5.5 10^3/uL (1.8-7.7); Neutrophils % 65.8 %; Nucleated Red Blood Cells % 0 %; Platelet Count 323 10^3/cmm (130-400); Red Blood Count 3.14 10^6/uL (4.1-5.3); Red Cell Distribution Width 18.4 % (12.1-15.1); White Blood Count 8.3 10^3/uL (4.0-10.0)
[2019-11-07 06:16] LABS: Alanine Aminotransferase 8 U/L (0-33); Albumin Level 3.1 g/dL (3.5-5.2); Alkaline Phosphatase 72 IU/L (35-105); Anion Gap 12.5 (5-19); Aspartate Amino Transferase 11 U/L (0-32); Blood Urea Nitrogen 28 mg/dL (8-23); Calcium 8.9 mg/Dl (8.8-10.2); Carbon Dioxide 29 mmol/L (22-29); Chloride 103 mmol/L (98-107); Globulin 3.4 g/dL (1.3-4.6); Glucose 277 mg/dL (74-106); Potassium 4.5 mmol/L (3.5-5.1); Sodium 140 mmol/L (136-145); Total Bilirubin 0.3 mg/dL (0.15-1.2); Total Protein 6.5 g/dL (6.6-8.7)
[2019-11-07 06:49] LABS: Glucose Point of Care 327 mg/dL (70-110)
[2019-11-07 07:29] VITALS: BP 156/77; PULSE 96; RESP 16; TEMP 36.6; O2SAT 94
[2019-11-07] MEDS: pantoprazole DR 40 mg Tablet PO (08:32)
[2019-11-07] MEDS: ferrous sulfate EC 325 mg Tablet PO ×2 (08:33→17:42)
[2019-11-07] MEDS: insulin aspart 70/30 100 units/1 mL 60 UNIT SUBCUT (08:34)
--- NOTE | 2019-11-07 08:58 | P.PN_ITS ---
Subjective Subjective: Interval history: Patient seen bedside this afternoon, she was sitting in her chair playing [employer]. She is 1 day status post partial amputation right second toe secondary to osteomyelitis. Denies any pain at her right foot. She also has a venous ulcer at her left anterior leg and superficial wound to her left great toe. Dressings are intact to her left and right lower extremities without strikethrough. She is tolerating a regular diet. Denies any complaints at this time. Patient denies any subjective nausea, vomiting, fever, chills, shortness of breath or chest pain. Medications: Reviewed: Yes Vitals/I&O/Wt Last Vital Signs Temp 97.9 F 11/07/19 07:29 Pulse 96 11/07/19 07:29 Resp 16 11/07/19 07:29 BP 156/77 11/07/19 07:29 Pulse Ox 94 11/07/19 07:29 11/06/19 11/07/19 11/07/19 22:59 06:59 14:59 Intake Total 1513 / 2513 756.666 / 3269.666 240 / 240 Output Total 5 / 5 Balance 1508 / 2508 756.666 / 3264.666 240 / 240 Weight last 48 hrs Weight 216 lb 12.8 oz Weight 208 lb 11.2 oz Weight 216 lb Physical Exam Narrative: EXAM NARRATIVE: The following is a focused bilateral lower extremity exam. Patient is accompanied by her daughter. VASCULAR: Dorsalis pedis artery is faintly palpable bilaterally. Posterior t ibial artery palpable +2 bilaterally. Capillary refill time less than 3 seconds to the distal hallux bilaterally. Calf is supple and nontender proximally and distally. Decreased pedal hair growth noted bilateral lower extremity. Pitting edema to the lower extremities bilaterally. NEUROLOGICAL: Protective sensation intact 0/10 sites, tested with [employer] monofilament to bilateral feet. DERMATOLOGICAL: Postoperative dressing left undisturbed at right foot there is no strikethrough drainage or bleeding, no proximal lymphangitic streaking. Superficial wound noted to left dorsal hallux with limited to breakdown of skin no surrounding erythema or purulent drainage. Venous ulceration at left anterior leg measures 1.3 cm x 1.1 cm with fibro-granular base, serous drainage no proximal lymphangitic streaking. MUSCULOSKELETAL: Muscle strength 5 out of 5 in all 3 cardinal planes to bilateral foot and ankle. No pain with posterior calf squeeze bilaterally. Data Micro: Micro: Microbiology 11/06/19 15:17 Gram Stain - Final Toe - #1 A&P Assessment and plan (1) Type 2 diabetes mellitus with diabetic polyneuropathy: Status: Acute Code(s): E11.42 - Type 2 diabetes mellitus with diabetic polyneuropathy (2) Osteomyelitis of second toe of left foot: Patient is 1 day status post partial right second toe amputation secondary to osteomyelitis at distal phalanx. -Patient receiving empiric IV antibiotics while inpatient, I am okay with or antibiotics on discharge or transfer to rehab facility. -Bone culture pending, Gram stain significant for gram-positive cocci in pairs and clusters. Pathology also pending. Level of amputation was 2 joints proximal to the area of osteomyelitis. -Toe brachial index for right lower extremity is 0.19, left lower extremity is 0.4 with monophasic signal throughout all pedal pulses. Recommend referral to Dr. Interiano for severe peripheral arterial disease with critical toe brachial index right lower extremity. -Performed debridement to left anterior leg wound wound has epithelialized margin without purulence or surrounding erythema. Dressed with alginate and dry sterile noncompressive dressing. Overall her left leg wound and left great toe wound appears improved since last week. -Patient to be nonweightbearing to the right foot at this time, may heel touch for transfers with postop shoe. -Awaiting placement at rehab facility. -Podiatry will follow. Status: Acute Code(s): M86.9 - Osteomyelitis, unspecified (3) Peripheral arterial disease: Status: Acute Code(s): I73.9 - Peripheral vascular disease, unspecified Attestations Medical Necessity Statement*: Poorly controlled diabetes, osteomyelitis right second toe, venous insufficiency wound left anterior leg. Coding Level of Care Code Acute Residential Direct Support Professional for [facility] Fw Diagnoses Type 2 diabetes mellitus with diabetic polyneuropathy E11.42 Osteomyelitis of second toe of left foot M86.9 Peripheral arterial disease I73.9
--- NOTE | 2019-11-07 10:09 | ANE.PACU ---
 Inpatient post-anesthesia follow up: Airway intact: Yes Vital signs: Temperature 97.9 F Pulse Rate [Left R adial] 96 Pulse Rate 94 Respiratory Rate 16 Blood Pressure [Le ft Arm] 156/77 Pulse Oximetry 94 Oxygen Delivery Me thod [ Room Air Current Rate & Del desirae] Oxygen Delivery Me thod Room Air Oxygen Flow Rate Fraction of Inspir ed Oxygen Hydration adequate: Yes Nausea and vomiting: No Mental status: Baseline
[2019-11-07 11:55] LABS: Glucose Point of Care 407 mg/dL (70-110)
[2019-11-07 11:58] VITALS: BP 136/75; PULSE 98; RESP 16; TEMP 36.7; O2SAT 97
[2019-11-07 14:42] LABS: Glucose Point of Care 203 mg/dL (70-110)
[2019-11-07 15:38] VITALS: BP 144/74; PULSE 91; RESP 16; TEMP 36.6; O2SAT 97
--- NOTE | 2019-11-07 16:02 | P.PN_ITS ---
Vitals/I&O/Wt Last Vital Signs Temp 97.8 F 11/07/19 15:38 Pulse 91 11/07/19 15:38 Resp 16 11/07/19 15:38 BP 144/74 11/07/19 15:38 Pulse Ox 97 11/07/19 15:38 11/07/19 11/07/19 11/07/19 06:59 14:59 22:59 Intake Total 756.666 / 3269.666 1250 / 1250 Balance 756.666 / 3264.666 1250 / 1250 Weight last 48 hrs Weight 98.339 kg Weight 94.665 kg Physical Exam Const: COMMON NORMALS: no apparent distress, no limitations and alert EXAM LIMITATIONS: no altered mental status GENERAL APPEARANCE: cooperative and comfortable ORIENTATION/CONSCIOUSNESS: Yes oriented to person and Yes oriented to place HENMT: COMMON NORMALS: normocephalic HEAD & SCALP: normocephalic Neck/C-Spine: COMMON NORMALS: no JVD Lymph: LYMPHATIC: no lymphadenopathy noted Resp: COMMON NORMALS: normal respiratory effort, no retractions, no use of accessory muscles and clear to auscultation bilaterally AUSCULTATION: clear to auscultation bilaterally Cardio: COMMON NORMALS: no JVD, regular rate, regular rhythm, S1 normal heart sound and S2 normal heart sound RATE: regular rate RHYTHM: regular rhythm HEART SOUNDS: S1 normal and S2 normal GI: COMMON NORMALS: normal to inspection, nondistended, normoactive bowel sounds, soft to palpation, non-tender, no hepatosplenomegaly, no masses and no bruits PALPATION: Yes soft and Yes no hepatosplenomegaly Extremity: OTHER: Bilateral lower extremity wrapped and bandaged Neuro: SENSORIUM/ORIENTATION: Yes alert, Yes oriented to person and Yes oriented to place Data Micro: Micro: Microbiology 11/06/19 15:17 Gram Stain - Final Toe - #1 A&P Assessment and plan (1) Osteomyelitis of foot: -Right foot, second digit shows Abnormal signal of the distal phalanx of the right second toe consistent with osteomyelitis -status post partial right second toe amputation secondary to osteomyelitis at distal phalanx, Performed debridement to left anterior leg Plan: -On vancomycin and Zosyn -Following tissue cultures -Dr. Corral on consult -ABIs show 1. Markedly diminished resting TBI on the right side, suggestive of severe peripheral arterial disease with a possible occlusion of the posterior tibial artery. 2. Abnormal resting TBI on the left side, suggestive of moderate peripheral arterial disease -Need to follow-up vascular intervention as outpatient Status: Acute Code(s): M86.9 - Osteomyelitis, unspecified (2) Depression: Status: Acute Code(s): F32.9 - Major depressive disorder, single episode, unspecified (3) Type 2 diabetes mellitus with diabetic polyneuropathy: -Patient's hemoglobin A1c is 6.2, but I believe this is falsely low given her anemia as her blood sugars are quite elevated Plan: -Continue Levemir 20 units at bedtime (takes 25 units at bedtime) -Continue 70/30 30 units at bedtime (takes 45 units at bedtime) -We will continue 70/30 60 units in the morning (takes 70 units at bedtime) Status: Acute Code(s): E11.42 - Type 2 diabetes mellitus with diabetic polyneuropathy (4) Anemia: Hemoglobin 8.9 Patient daughter states that her hemoglobin has gone as low as 7, but did not receive transfusion No history of EGD or colonoscopy, no complaints of bloody stools Is on iron replacement Plan: -Monitor hemoglobin, Hemoccult stool, iron studies Status: Acute Code(s): D64.9 - Anemia, unspecified Attestations Medical Necessity Statement*: Patient requires continued hospitalization, for osteomyelitis, peripheral arterial disease Coding Level of Care Code Acute 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
[2019-11-07] MEDS: sertraline 50 mg Tablet PO (17:42)
[2019-11-07] MEDS: insulin aspart 70/30 100 units/1 mL 40 UNIT SUBCUT (17:44)
[2019-11-07 20:00] VITALS: BP 159/72; PULSE 88; RESP 18; TEMP 36.7; O2SAT 97
[2019-11-07] MEDS: hyDROXYzine 25 mg Capsule PO (21:42)
[2019-11-07] MEDS: atorvastatin 40 mg Tablet PO (21:42)
[2019-11-07 22:00] LABS: Glucose Point of Care 117 mg/dL (70-110)
[2019-11-08] VITALS (7 sets, daily range): BP systolic 116–182; BP diastolic 71–85; PULSE 47–96; RESP 18–20; TEMP 36.4–37.1; O2SAT 92–98
[2019-11-08] MEDS: piperacillin-tazobactam 3.375 GM in sodium chloride 0.9% (plus) 50 ML IV ×3 (05:27→23:15)
[2019-11-08] MEDS: heparin 5,000 unit/mL INJ 1 mL 5000 UNIT SUBCUT ×3 (05:27→22:15)
[2019-11-08 06:17] LABS: Basophils # 0.1 10^3/uL (0.0-0.1); Basophils % 0.6 %; Eosinophils # 0.3 10^3/uL (0.0-0.8); Eosinophils % 3.9 %; Hematocrit 28.4 % (37.0-47.0); Hemoglobin 8.5 g/dL (11.5-15.3); Lymphocytes # 1.9 10^3/uL (0.8-4.8); Lymphocytes % 22.1 %; Mean Corpuscular HGB Conc 29.9 g/dL (30.0-36.0); Mean Corpuscular Hemoglobin 27.3 pg (28.0-34.0); Mean Corpuscular Volume 91.3 fL (81-99); Mean Platelet Volume 9.4 fL (7.4-10.4); Monocytes # 0.8 10^3/uL (0.2-0.9); Monocytes % 8.7 %; Neutrophils # 5.6 10^3/uL (1.8-7.7); Neutrophils % 64.4 %; Nucleated Red Blood Cells % 0 %; Platelet Count 299 10^3/cmm (130-400); Red Blood Count 3.11 10^6/uL (4.1-5.3); Red Cell Distribution Width 17.7 % (12.1-15.1); White Blood Count 8.7 10^3/uL (4.0-10.0)
[2019-11-08 06:45] LABS: Alanine Aminotransferase 7 U/L (0-33); Albumin Level 3.2 g/dL (3.5-5.2); Alkaline Phosphatase 60 IU/L (35-105); Anion Gap 13.7 (5-19); Aspartate Amino Transferase 12 U/L (0-32); Blood Urea Nitrogen 30 mg/dL (8-23); Carbon Dioxide 26 mmol/L (22-29); Chloride 105 mmol/L (98-107); Globulin 2.9 g/dL (1.3-4.6); Glucose 95 mg/dL (74-106); Potassium 3.7 mmol/L (3.5-5.1); Sodium 141 mmol/L (136-145); Total Bilirubin 0.4 mg/dL (0.15-1.2); Total Protein 6.1 g/dL (6.6-8.7)
[2019-11-08 07:04] LABS: Glucose Point of Care 96 mg/dL (70-110)
[2019-11-08] MEDS: pantoprazole DR 40 mg Tablet PO (08:38)
[2019-11-08] MEDS: ferrous sulfate EC 325 mg Tablet PO ×2 (08:38→17:29)
[2019-11-08] MEDS: insulin aspart 70/30 100 units/1 mL 70 UNIT SUBCUT (08:40)
--- NOTE | 2019-11-08 10:29 | PC.SOCIAL ---
Pg 2 of IMM was explained to and signed by patient, copy was provided, and form placed in chart. She verbalized understanding and had no questions.
[2019-11-08 11:20] LABS: Glucose Point of Care 111 mg/dL (70-110)
--- NOTE | 2019-11-08 15:02 | PM.PN ---
Subjective Subjective: Interval history: This morning patient has no significant complaints, is waiting for penitentiary placement, no fevers, no chills, no nausea, no vomiting Vitals/I&O/Wt Last Vital Signs Temp 97.7 F 11/08/19 12:00 Pulse 92 11/08/19 12:00 Resp 18 11/08/19 12:00 BP 146/81 11/08/19 12:00 Pulse Ox 95 11/08/19 12:00 11/08/19 11/08/19 11/08/19 06:59 14:59 22:59 Intake Total 1949 770 / 770 Output Total 800 / 800 Balance 1949 -30 / -30 Weight last 48 hrs Weight 96.615 kg Weight 96.615 kg Weight 98.339 kg Physical Exam Const: COMMON NORMALS: no apparent distress, no limitations and alert EXAM LIMITATIONS: no altered mental status GENERAL APPEARANCE: cooperative and comfortable ORIENTATION/CONSCIOUSNESS: Yes oriented to person and Yes oriented to place Resp: COMMON NORMALS: normal respiratory effort, no retractions, no use of accessory muscles and clear to auscultation bilaterally AUSCULTATION: clear to auscultation bilaterally Cardio: COMMON NORMALS: regular rate, regular rhythm, S1 normal heart sound and S2 normal heart sound RATE: regular rate RHYTHM: regular rhythm HEART SOUNDS: S1 normal and S2 normal GI: COMMON NORMALS: normal to inspection, nondistended, normoactive bowel sounds, soft to palpation, non-tender, no hepatosplenomegaly, no masses and no bruits PALPATION: Yes soft and Yes no hepatosplenomegaly : COMMON NORMALS: Yes no CVA tenderness BLADDER/KIDNEY EXAM: Yes no CVA tenderness Back/Pelvis: COMMON NORMALS: no CVA tenderness and thoracic and lumbar spine normal to inspection Extremity: COMMON NORMALS: normal capillary refill, no clubbing, cyanosis or edema and no pedal edema OTHER: Bilateral lower extremity wrapped and bandaged Neuro: COMMON NORMALS: CN's II-XII intact bilaterally, moves all extremities, no focal motor deficits and no sensory deficits noted SENSORIUM/ORIENTATION: Yes alert, Yes oriented to person and Yes oriented to place SPEECH: speech normal MOTOR EXAM: strength 5/5 throughout Psych: COMMON NORMALS: mental status grossly normal APPEARANCE: Yes grossly normal ATTITUDE: Yes calm MEMORY/COGNITION: Yes memory grossly impaired Impared memory type(s): short term Data Micro: Micro: Microbiology 11/06/19 15:17 Gram Stain - Final Toe - #1 Tissue Culture - P reliminary Staphylococcus aureus A&P Assessment and plan (1) Osteomyelitis of foot: -Right foot, second digit shows Abnormal signal of the distal phalanx of the right second toe consistent with osteomyelitis -status post partial right second toe amputation secondary to osteomyelitis at distal phalanx, Performed debridement to left anterior leg Plan: -On vancomycin and Zosyn -Following tissue cultures -Dr. Corral on consult -ABIs show 1. Markedly diminished resting TBI on the right side, suggestive of severe peripheral arterial disease with a possible occlusion of the posterior tibial artery. 2. Abnormal resting TBI on the left side, suggestive of moderate peripheral arterial disease -No acute signs of acute limb ischemia -Need to follow-up vascular intervention as outpatient for intervention Status: Acute Code(s): M86.9 - Osteomyelitis, unspecified (2) Depression: Status: Acute Code(s): F32.9 - Major depressive disorder, single episode, unspecified (3) Type 2 diabetes mellitus with diabetic polyneuropathy: -Patient's hemoglobin A1c is 6.2, but I believe this is falsely low given her anemia as her blood sugars are quite elevated Plan: -Continue Levemir 20 units at bedtime (takes 25 units at bedtime) -Continue 70/30 45 units at bedtime (takes 45 units at bedtime) -We will continue 70/30 70 units in the morning (takes 70 units at bedtime) Status: Acute Code(s): E11.42 - Type 2 diabetes mellitus with diabetic polyneuropathy (4) Anemia: Hemoglobin 8.5 Patient daughter states that her hemoglobin has gone as low as 7, but did not receive transfusion No history of EGD or colonoscopy, no complaints of bloody stools Is on iron replacement Plan: -Monitor hemoglobin, Hemoccult stool, iron studies Status: Acute Code(s): D64.9 - Anemia, unspecified Attestations Medical Necessity Statement*: Patient requires continued hospitalization, awaiting penitentiary placement, right lower lower extremity osteomyelitis Coding Level of Care Code Acute Musculoskeletal Physician for [facility] Fwd Diagnoses Osteomyelitis of foot M86.9 Depression F32.9 Type 2 diabetes mellitus with diabetic polyneuropathy E11.42 Anemia D64.9
[2019-11-08 16:58] LABS: Glucose Point of Care 140 mg/dL (70-110)
[2019-11-08] MEDS: insulin aspart 70/30 100 units/1 mL 40 UNIT SUBCUT (17:29)
--- NOTE | 2019-11-08 21:11 | PC.NURSE ---
Assessment: I agree with Sarahi's assessment on this patient.
[2019-11-08 21:22] LABS: Glucose Point of Care 99 mg/dL (70-110)
[2019-11-08] MEDS: atorvastatin 40 mg Tablet PO (22:13)
[2019-11-08] MEDS: hyDROXYzine 25 mg Capsule PO (22:13)
[2019-11-09] VITALS: BP 153/72; PULSE 96; RESP 16; TEMP 36.8; O2SAT 94
[2019-11-09 04:00] VITALS: BP 148/81; PULSE 127; RESP 20; TEMP 36.4; O2SAT 96
[2019-11-09 05:12] LABS: Basophils # 0.1 10^3/uL (0.0-0.1); Basophils % 0.9 %; Eosinophils # 0.3 10^3/uL (0.0-0.8); Hematocrit 32.5 % (37.0-47.0); Hemoglobin 9.7 g/dL (11.5-15.3); Lymphocytes # 2.1 10^3/uL (0.8-4.8); Lymphocytes % 22.6 %; Mean Corpuscular HGB Conc 29.8 g/dL (30.0-36.0); Mean Corpuscular Hemoglobin 28.9 pg (28.0-34.0); Mean Corpuscular Volume 96.7 fL (81-99); Mean Platelet Volume 9.5 fL (7.4-10.4); Monocytes # 0.6 10^3/uL (0.2-0.9); Monocytes % 6.3 %; Neutrophils # 6.1 10^3/uL (1.8-7.7); Neutrophils % 66.7 %; Nucleated Red Blood Cells % 0 %; Platelet Count 338 10^3/cmm (130-400); Red Blood Count 3.36 10^6/uL (4.1-5.3); Red Cell Distribution Width 17.8 % (12.1-15.1); White Blood Count 9.2 10^3/uL (4.0-10.0)
[2019-11-09] MEDS: heparin 5,000 unit/mL INJ 1 mL 5000 UNIT SUBCUT ×3 (05:35→21:52)
[2019-11-09 05:49] LABS: Alanine Aminotransferase 10 U/L (0-33); Albumin Level 3.4 g/dL (3.5-5.2); Alkaline Phosphatase 67 IU/L (35-105); Anion Gap 16.6 (5-19); Aspartate Amino Transferase 16 U/L (0-32); Blood Urea Nitrogen 29 mg/dL (8-23); Calcium 9.2 mg/Dl (8.8-10.2); Carbon Dioxide 26 mmol/L (22-29); Chloride 104 mmol/L (98-107); Globulin 3.4 g/dL (1.3-4.6); Glucose 107 mg/dL (74-106); Potassium 3.6 mmol/L (3.5-5.1); Sodium 143 mmol/L (136-145); Total Bilirubin 0.4 mg/dL (0.15-1.2); Total Protein 6.8 g/dL (6.6-8.7)
[2019-11-09 06:33] LABS: Glucose Point of Care 96 mg/dL (70-110)
--- NOTE | 2019-11-09 07:56 | PM.PN ---
Subjective Subjective: Interval history: Patient seen bedside this morning, was resting comfortably upon entering the room. Denies any acute events overnight. Tolerating regular diet. Denies any pain at the lower extremities. No leukocytosis, patient is afebrile. She is awaiting placement at nursing facility. Patient denies any subjective nausea, vomiting, fever, chills, shortness of breath or chest pain. Vitals/I&O/Wt Last Vital Signs Temp 97.5 F L 11/09/19 04:00 Pulse 127 H 11/09/19 04:00 Resp 20 H 11/09/19 04:00 BP 148/81 11/09/19 04:00 Pulse Ox 96 11/09/19 04:00 11/08/19 11/09/19 11/09/19 22:59 06:59 14:59 Intake Total 300 / 1070 50 / 1120 Output Total 300 / 1100 200 / 1300 Balance 0 / -30 -150 / -180 Weight last 48 hrs Weight 212 lb 11.2 oz Weight 213 lb Weight 213 lb Physical Exam Narrative: EXAM NARRATIVE: EXAM NARRATIVE: The following is a focused bilateral lower extremity exam. VASCULAR: Dorsalis pedis artery is faintly palpable bilaterally. Posterior tibial artery palpable +2 bilaterally. Capillary refill time less than 3 seconds to the distal hallux bilaterally. Calf is supple and nontender proximally and distally. Decreased pedal hair growth noted bilateral lower extremity. Pitting edema to the lower extremities bilaterally. NEUROLOGICAL: Protective sensation intact 0/10 sites, tested with [place] [employer] monofilament to bilateral feet. DERMATOLOGICAL: Postoperative dressing left undisturbed at right foot there is no active bleeding, no proximal lymphangitic streaking. Superficial wound noted to left dorsal hallux with limited to breakdown of skin no surrounding erythema or purulent drainage. Venous ulceration at left anterior leg measures 1.2 cm x 1.0 cm by 0.1 cm with fibro-granular base, serous drainage no proximal lymphangitic streaking. MUSCULOSKELETAL: Muscle strength 5 out of 5 in all 3 cardinal planes to bilateral foot and ankle. No pain with posterior calf squeeze bilaterally. Data Micro: Micro: Microbiology 11/06/19 15:17 Gram Stain - Final Toe - #1 Tissue Culture - P reliminary Staphylococcus aureus A&P Assessment and plan (1) Osteomyelitis of second toe of right foot: Patient is 3 days status post right partial second toe amputation secondary to osteomyelitis distal phalanx. Date of operation 11/06/2019. -Patient receiving empiric IV antibiotics, bone specimen Gram stain significant for gram-positive cocci in clusters and pairs, preliminary growth significant for staph aureus, finalized culture and sensitivity pending. I am okay with 2 weeks of oral antibiotics upon transfer. -Patient to be nonweightbearing to the right lower extremity at this time secondary to partial toe amputation, may heel touch for transfers only with postop shoe. -Bone culture pending, Gram stain significant for gram-positive cocci in pairs and clusters. Pathology also pending. Level of amputation was 2 joints proximal to the area of osteomyelitis. -Toe brachial index for right lower extremity is 0.19, left lower extremity is 0.4 with monophasic signal throughout all pedal pulses. Will referral to Dr. Interiano for severe peripheral arterial disease with critical toe brachial index right lower extremity, will arrange outpatient follow-up. -Awaiting placement at rehab facility. -Podiatry will follow. Status: Acute Code(s): M86.9 - Osteomyelitis, unspecified (2) Non-pressure chronic ulcer of left ankle with fat layer exposed: Performed mechanical debridement, pedal edema bilaterally significantly improved during his hospitalization. Venous wound left anterior ankle appears healthier and without clinical signs of infection. Dressing applied consisting of silver impregnated alginate, sterile 4 x 4's, Brandon, cast padding and 4 inch Prashanth without compression. Left hallux wound limited to breakdown of skin without clinical signs of infection. Will continue follow-up at wound care upon transfer for her left ankle venous wound. Status: Acute Code(s): L97.322 - Non-pressure chronic ulcer of left ankle with fat layer exposed (3) Type 2 diabetes mellitus with diabetic polyneuropathy: Status: Acute Code(s): E11.42 - Type 2 diabetes mellitus with diabetic polyneuropathy (4) Peripheral arterial disease: Will refer to Dr. Interiano for peripheral tibial disease work-up. 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
[2019-11-09 07:59] VITALS: BP 146/84; PULSE 76; RESP 20; TEMP 36.6; O2SAT 97
[2019-11-09] MEDS: piperacillin-tazobactam 3.375 GM in sodium chloride 0.9% (plus) 50 ML IV ×2 (08:22→15:38)
[2019-11-09] MEDS: pantoprazole DR 40 mg Tablet PO (08:23)
[2019-11-09] MEDS: ferrous sulfate EC 325 mg Tablet PO ×2 (08:23→18:04)
[2019-11-09] MEDS: insulin aspart 70/30 100 units/1 mL 70 UNIT SUBCUT (08:30)
[2019-11-09 11:17] VITALS: BP 136/64; PULSE 62; RESP 22; TEMP 36.8; O2SAT 94
[2019-11-09 11:23] LABS: Glucose Point of Care 138 mg/dL (70-110)
[2019-11-09 15:23] VITALS: BP 132/68; PULSE 64; RESP 18; TEMP 37.1; O2SAT 95
[2019-11-09 16:23] LABS: Glucose Point of Care 328 mg/dL (70-110)
[2019-11-09 18:48] LABS: Vancomycin Trough 18.1 ug/mL (10-15)
--- NOTE | 2019-11-09 19:22 | P.PN_ITS ---
Subjective Subjective: Interval history: Deisi reports she feels much better. She states her foot is less painful. History and physical, progress notes reviewed. Medications: Reviewed: Yes Vitals/I&O/Wt Last Vital Signs Temp 98.7 F 11/09/19 15:23 Pulse 64 11/09/19 15:23 Resp 18 11/09/19 15:23 BP 132/68 11/09/19 15:23 Pulse Ox 95 11/09/19 15:23 11/09/19 11/09/19 11/09/19 06:59 14:59 22:59 Intake Total 50 / 1120 770 / 770 360 / 1130 Output Total 200 / 1300 1100 / 1100 Balance -150 / -180 -330 / -330 360 / 30 Weight last 48 hrs Weight 96.479 kg Weight 96.615 kg Weight 96.615 kg Physical Exam Narrative: EXAM NARRATIVE: General exam is no apparent distress Cardiovascular regular in rhythm without murmur Lungs clear Abdomen is soft, positive bowel sounds Right foot with bandage Data Micro: Micro: Microbiology 11/06/19 15:17 Gram Stain - Final Toe - #1 Tissue Culture - P reliminary Staphylococcus aureus Coagulase negat iv staphylococc A&P Assessment and plan (1) Osteomyelitis of foot: Right foot second digit osteomyelitis. Status post partial amputation. Currently on vancomycin and Zosyn but plans on discharge to use oral therapy and follow-up outpatient with wound cultures. Wound cultures currently still pending. I suspect she will need linezolid for 2 weeks. Also has known peripheral vascular disease. Secondary to wound care needs [facility]. Status: Acute Code(s): M86.9 - Osteomyelitis, unspecified (2) Depression: Status: Acute Code(s): F32.9 - Major depressive disorder, single episode, unspecified (3) Type 2 diabetes mellitus with diabetic polyneuropathy: Continue current insulin regimen Status: Acute Code(s): E11.42 - Type 2 diabetes mellitus with diabetic polyneuropathy (4) Anemia: Hemoglobin stable Status: Acute Code(s): D64.9 - Anemia, unspecified Attestations Medical Necessity Statement*: Needs continued hospitalization for IV antibiotics, pending placement Coding Level of Care Code Acute Improvement Auditor for [facility] Diagnoses Osteomyelitis of foot M86.9 Depression F32.9 Type 2 diabetes mellitus with diabetic polyneuropathy E11.42 Anemia D64.9
[2019-11-09 20:00] VITALS: BP 154/70; PULSE 89; RESP 16; TEMP 36.4; O2SAT 99
[2019-11-09 21:26] LABS: Glucose Point of Care 428 mg/dL (70-110)
[2019-11-09] MEDS: atorvastatin 40 mg Tablet PO (21:53)
[2019-11-09] MEDS: hyDROXYzine 25 mg Capsule PO (21:53)
[2019-11-10] VITALS (7 sets, daily range): BP systolic 121–185; BP diastolic 59–79; PULSE 91–102; RESP 16–24; TEMP 36.3–36.7; O2SAT 93–98
[2019-11-10] MEDS: piperacillin-tazobactam 3.375 GM in sodium chloride 0.9% (plus) 50 ML IV ×2 (00:14→08:02)
[2019-11-10 04:13] LABS: Alanine Aminotransferase 11 U/L (0-33); Albumin Level 3.8 g/dL (3.5-5.2); Alkaline Phosphatase 67 IU/L (35-105); Aspartate Amino Transferase 15 U/L (0-32); Blood Urea Nitrogen 29 mg/dL (8-23); Calcium 9.5 mg/Dl (8.8-10.2); Carbon Dioxide 25 mmol/L (22-29); Chloride 103 mmol/L (98-107); Globulin 2.7 g/dL (1.3-4.6); Glucose 271 mg/dL (74-106); Sodium 140 mmol/L (136-145); Total Bilirubin 0.4 mg/dL (0.15-1.2); Total Protein 6.5 g/dL (6.6-8.7)
[2019-11-10 04:20] LABS: Basophils # 0.1 10^3/uL (0.0-0.1); Basophils % 0.7 %; Eosinophils # 0.4 10^3/uL (0.0-0.8); Eosinophils % 4.6 %; Hematocrit 29.1 % (37.0-47.0); Hemoglobin 8.7 g/dL (11.5-15.3); Lymphocytes # 2.7 10^3/uL (0.8-4.8); Lymphocytes % 30.6 %; Mean Corpuscular HGB Conc 29.9 g/dL (30.0-36.0); Mean Corpuscular Hemoglobin 27.7 pg (28.0-34.0); Mean Corpuscular Volume 92.7 fL (81-99); Mean Platelet Volume 9.9 fL (7.4-10.4); Monocytes # 0.7 10^3/uL (0.2-0.9); Monocytes % 8.4 %; Neutrophils # 4.9 10^3/uL (1.8-7.7); Neutrophils % 55.4 %; Nucleated Red Blood Cells % 0 %; Platelet Count 331 10^3/cmm (130-400); Red Blood Count 3.14 10^6/uL (4.1-5.3); Red Cell Distribution Width 17.7 % (12.1-15.1); White Blood Count 8.8 10^3/uL (4.0-10.0)
[2019-11-10] MEDS: heparin 5,000 unit/mL INJ 1 mL 5000 UNIT SUBCUT (06:07)
[2019-11-10 06:31] LABS: Glucose Point of Care 223 mg/dL (70-110)
[2019-11-10] MEDS: pantoprazole DR 40 mg Tablet PO (08:02)
[2019-11-10] MEDS: ferrous sulfate EC 325 mg Tablet PO (08:02)
--- NOTE | 2019-11-10 09:05 | PM.PN ---
Subjective Subjective: Interval history: Ms. serrano is doing well this morning, denies any acute events overnight. Denies any pain at her feet. Tolerating regular diet. Awaiting placement for nursing facility. Vitals/I&O/Wt Last Vital Signs Temp 97.5 F L 11/10/19 07:14 Pulse 101 H 11/10/19 07:14 Resp 16 11/10/19 07:14 BP 121/72 11/10/19 07:14 Pulse Ox 93 11/10/19 07:14 11/09/19 11/10/19 11/10/19 22:59 06:59 14:59 Intake Total 410 / 1180 170 / 1350 240 / 240 Balance 410 / 80 170 / 250 240 / 240 Weight last 48 hrs Weight 212 lb 11.2 oz Data Micro: Micro: Microbiology 11/06/19 15:17 Gram Stain - Final Toe - #1 Tissue Culture - P reliminary Staphylococcus aureus Coagulase negat iv staphylococc Coding Level of Care Code Acute Life Skills Coach for [facility]
[2019-11-10] MEDS: insulin aspart 70/30 100 units/1 mL 70 UNIT SUBCUT (09:22)
--- NOTE | 2019-11-10 10:54 | PC.SOCIAL ---
IMM Update Pg 2 of IMM given and explained to patient. Voiced understanding. Copy provided to patient and chart updated.
--- NOTE | 2019-11-10 11:00 | PM.DCS ---
Discharge Providers Date of Admission: 11/05/19 15:29 Date of Discharge: 11/10/19 Attending Provider at Admission: Juan Bustamante MD Attending Provider at Discharge: Geo Moreno MD Primary Care Provider: JAYLIN Gonzáles Diagnoses at Discharge Discharge Diagnosis (1) Osteomyelitis of foot: Status: Acute Problem details: Status post amputation. Will complete 2 weeks of linezolid. Cultures grew staph aureus, methicillin sensitive and staph epidermidis sensitivities pending. (2) Depression: Status: Acute Problem details: Stable. Reduce dose of Zoloft secondary to initiation of linezolid (3) Type 2 diabetes mellitus with diabetic polyneuropathy: Status: Acute Problem details: Stable (4) Anemia: Status: Acute Problem details: Stable Reason for Visit Reason for Visit: Reason For Visit: right 2nd toe oseomyelitis Hospital Course Hospital Course: Deisi presented to the hospital with a diabetic ulcer, right foot cellulitis, osteomyelitis of the right foot. Podiatry was consulted. She was placed on Zosyn and vancomycin. She underwent partial amputation right second toe. The rest of her hospital stay was rather uneventful. After discussion with podiatry, she will discharge on 2 weeks of linezolid, and follow-up in podiatry clinic as well as primary care provider. Secondary to wound care needs, she will transition [facility] prison facility. Physical Exam Narrative: EXAM NARRATIVE: General exam is no apparent distress Cardiovascular regular rate and rhythm without murmur Lungs clear Abdomen is soft and obese, positive bowel sounds Extremities no cyanosis clubbing or edema. Dressing present right foot. Discharge Data Data Completed and Pending: Completed Studies During Hospitalization Category Date Time Status XR chest 1V remi ble [id number] Routine Exams 11/05/19 17:10 Completed XR foot LT min 3V * [id number] Routine Exams 11/05/19 18:34 Completed XR foot RT min 3V * [id number] Routine Exams 11/06/19 15:58 Completed CV ankle brachial index [id number] Nina more Ultrasound 11/05/19 17:10 Completed Pending at discharge Category Date Time Status CBC [Complete Blo od Count w/Auto] A M LABS Lab 11/11/19 04:00 Ordered Comprehensive Met abolic Panel AM LA BS Lab 11/11/19 04:00 Ordered Tissue Culture an d Gram Stain Nina more Lab 11/06/19 15:17 Results Pathology: Surgic al [PTH] Routine Pth 11/06/19 15:47 Received Labs from last 24 hours 11/10/19 11/10/19 11/10/19 06:25 03:20 03:20 WBC 8.8 RBC 3.14 L Hgb 8.7 L Hct 29.1 L MCV 92.7 MCH 27.7 L MCHC 29.9 L RDW 17.7 H Plt Count 331 MPV 9.9 Neut % (Auto) 55.4 Lymph % (Auto) 30.6 [place] % (Auto) 8.4 Eos % (Auto) 4.6 Baso % (Auto) 0.7 Neut # (Auto) 4.9 Lymph # (Auto) 2.7 [place] # (Auto) 0.7 Eos # (Auto) 0.4 Baso # (Auto) 0.1 Nucleated RBC % (a uto) 0 Nucleated RBCs # 0.0 Sodium 140 Potassium 4.0 Chloride 103 Carbon Dioxide 25 Anion Gap 16.0 BUN 29 H Creatinine 1.6 H Glucose 271 H POC Glucose 223 Calcium 9.5 Total Bilirubin 0.4 AST 15 ALT 11 Alkaline Phosphata se 67 Total Protein 6.5 L Albumin 3.8 Globulin 2.7 Vancomycin Trough 11/09/19 11/09/19 11/09/19 21:22 17:48 16:18 WBC RBC Hgb Hct MCV MCH MCHC RDW Plt Count MPV Neut % (Auto) Lymph % (Auto) [place] % (Auto) Eos % (Auto) Baso % (Auto) Neut # (Auto) Lymph # (Auto) [place] # (Auto) Eos # (Auto) Baso # (Auto) Nucleated RBC % (a uto) Nucleated RBCs # Sodium Potassium Chloride Carbon Dioxide Anion Gap BUN Creatinine Glucose POC Glucose 428 328 Calcium Total Bilirubin AST ALT Alkaline Phosphata se Total Protein Albumin Globulin Vancomycin Trough 18.1 H 11/09/19 11:05 WBC RBC Hgb Hct MCV MCH MCHC RDW Plt Count MPV Neut % (Auto) Lymph % (Auto) [place] % (Auto) Eos % (Auto) Baso % (Auto) Neut # (Auto) Lymph # (Auto) [place] # (Auto) Eos # (Auto) Baso # (Auto) Nucleated RBC % (a uto) Nucleated RBCs # Sodium Potassium Chloride Carbon Dioxide Anion Gap BUN Creatinine Glucose POC Glucose 138 Calcium Total Bilirubin AST ALT Alkaline Phosphata se Total Protein Albumin Globulin Vancomycin Trough Vitals: Last Vital Signs Temp 97.5 F L 11/10/19 07:14 Pulse 101 H 11/10/19 07:14 Resp 16 11/10/19 07:14 BP 121/72 11/10/19 07:14 Pulse Ox 93 11/10/19 07:14 Discharge Plan Discharge Patient Disposition: Xfer SNF Condition: Stable Prescriptions: New Levemir U-100 Insulin 100 unit/mL Solution 20 unit SUBCUT BEDTIME Qty: 10 RF: 0 Novolog Mix 70-30 U-100 Insuln 100 unit/mL (70-30) Solution 70 unit SUBCUT DAILY Qty: 10 RF: 0 Novolog Mix 70-30 U-100 Insuln 100 unit/mL (70-30) Solution 40 unit SUBCUT QPM Qty: 10 RF: 0 linezolid 600 mg tablet 600 mg PO BID 14 Days Qty: 28 RF: 0 sertraline 25 mg tablet 25 mg PO DAILY Qty: 30 RF: 0 Continued hydroxyzine HCl 25 mg tablet 25 mg PO .bedtime RF: 0 memantine 28 mg capsule,sprinkle,ER 24hr 28 mg PO ONCE RF: 0 ferrous sulfate 325 mg (65 mg iron) tablet 325 mg PO BID RF: 0 omeprazole 20 mg capsule,delayed release(DR/EC) 20 mg PO BID RF: 0 rosuvastatin 20 mg capsule, sprinkle 20 mg PO BEDTIME RF: 0 fluticasone propion-salmeterol [Advair Diskus] 100-50 mcg/dose blister with device 1 puff INHALATION QAM RF: 0 cholecalciferol (vitamin D3) 5,000 unit capsule 5,000 unit PO ONCE RF: 0 aspirin 81 mg tablet,delayed release (DR/EC) 81 mg PO ONCE RF: 0 Complete Multivitamin Tablet 1 tab PO ONCE RF: 0 Discontinued sertraline 50 mg tablet 50 mg PO Q24H RF: 0 insulin NPH and regular human SUBCUT RF: 0 metformin 500 mg tablet 1,000 mg PO BID RF: 0 celecoxib 200 mg capsule 200 mg PO BID RF: 0 insulin detemir U-100 SUBCUT RF: 0 mupirocin 2 % ointment 1 applic TOPICAL BID RF: 0 albuterol sulfate 1 puff inhalation RF: 0 omega-3 fatty acids PO RF: 0 Discharge Orders: Discharge Order (Routine); Ordered 11/10/19 Ordered By: Geo Moreno Referrals: Lenin Corral DPM [Physician] - 4-7 days Makayla Giron FNP [Primary Care Provider] - 7-10 days Discharge Diet: Diabetic Discharge Activity: Resume usual activity Activity Restrictions/Additional Instructions: Wound care instructions per podiatry Discharge Attestations Time Spent in Discharge Care*: greater than 30 min Quality Metrics Clinical Quality Measures During this hospital stay, did patient experience: None Coding Level of Care Code Acute Conservator Artifacts for g [facility] Diagnoses Osteomyelitis of foot M86.9 Depression F32.9 Type 2 diabetes mellitus with diabetic polyneuropathy E11.42 Anemia D64.9
[2019-11-10 13:31] LABS: Glucose Point of Care 336 mg/dL (70-110)
[2019-11-10 17:39] LABS: Glucose Point of Care 306 mg/dL (70-110)
== END 2019-11-10 17:25 | disposition skilled nursing facility (03) | DRG 617 ==
PROVIDERS: Admitting Provider Family Medicine; Family Provider Nurse Practitioner Family; PCP Nurse Practitioner Family; Referring Provider Podiatrist Foot & Ankle Surgery; Visit Provider Internal Medicine
DX: E11.69 Type 2 diabetes mellitus with other specified complication (principal); M86.8X8 Other osteomyelitis, other site; L97.322 Non-pressure chronic ulcer of left ankle with fat layer exposed; L03.115 Cellulitis of right lower limb; D50.9 Iron deficiency anemia, unspecified; F03.90 Unspecified dementia, unspecified severity, without behavioral disturbance, psychotic disturbance, mood disturbance, and anxiety; E11.51 Type 2 diabetes mellitus with diabetic peripheral angiopathy without gangrene; E11.621 Type 2 diabetes mellitus with foot ulcer; F32.9 Major depressive disorder, single episode, unspecified; B95.61 Methicillin susceptible Staphylococcus aureus infection as the cause of diseases classified elsewhere; E11.42 Type 2 diabetes mellitus with diabetic polyneuropathy; J45.909 Unspecified asthma, uncomplicated; Z79.84 Long term (current) use of oral hypoglycemic drugs; Z79.4 Long term (current) use of insulin
CPT/HCPCS: 12345; 36415; 36416; 71045; 73630; 80053; 80202; 82607; 82728; 82746; 82962; 83036; 83540; 83550; 84145; 85025; 85045; 85610; 85651; 86140; 87070; 87077; 87176; 87186; 87205; 88305; 93005; 93922; 96372; 97110; 97116; 97161; 97165; 97530; 97535; J1644; J1815; J2543; J2704; J3010; J3370; J3490; J7030; J7050

== ENCOUNTER → 2019-12-24 14:38 | Outpatient (BNVA) | payer OTHER, SELFPAY | PROVIDERS: Family Provider Nurse Practitioner Family; PCP Nurse Practitioner Family; Visit Provider Podiatrist Foot & Ankle Surgery | DX: Z48.89 Encounter for other specified surgical aftercare (principal); Z89.421 Acquired absence of other right toe(s); I73.9 Peripheral vascular disease, unspecified | CPT/HCPCS: 73630 ==

== ENCOUNTER 2019-12-25 09:40 | Outpatient (CLI) | payer MEDICARE, MEDICAID, OTHER, SELFPAY ==
--- NOTE | 2019-12-25 09:30 | CT_ITS ---
WS: [id number] CTA ABDOMINAL AORTA WITH RUNOFF TECHNIQUE: Contrast enhanced CTA of the abdominal aorta with bilateral lower extremity runoff. Multip lanar reformatted images were obtained. MIP reformats were also reviewed. CLINICAL INFORMATION: Amputation of the right toe, critical limb ischemia, moderat COMPARISON: None. DLP: 2198.[address] scans at [facility] use at least one of these dose optimization techniques: automat ed exposure control; mA and/or kV adjustment per patient size (includes targeted exams where dose is matched to clinical indication); or iterative reconstruction. FINDINGS: Normal liver. Normal spleen. Normal GE junction. Chronic emphysematous changes at the lung bases. Subsegmental atelectasis right middle lobe, lingula, and right lower lobe. Gallbladder is cont racted. Adrenal glands are normal. Normal renal parenchymal enhancement. No hydronephrosis. No eviden ce of abdominal aortic be aneurysm. Celiac and SMA are patent with calcification at the origin. Mild right greater than left renal artery origins stenosis. Sigmoid constipation. Fat-containing umbilical hernia. No free fluid in the pelvis. Chronic bladder wall thickening can be seen with chronic cystit is. RIGHT: Right common iliac artery is patent. External and internal iliac arteries are patent. No iliac artery stenosis. Right common femoral artery is patent without significant stenosis. Right superfici al femoral artery is patent. Deep femoral artery is patent. Mild segmental narrowing involving the di stal SFA which remains patent. Popliteal artery is patent. Moderate calcification involving the popli teal artery. Dense calcification at the trifurcation. Diminutive Three-vessel runoff to the ankle LEFT: Left common iliac artery is patent. External and internal iliac arteries are patent. Common fem oral artery is patent. Left superficial femoral artery is patent with mild segmental narrowing in the mid and distal segments. SFA remains patent to the popliteal artery. Somewhat diminutive but patent popliteal artery. Dense calcification at the trifurcation. Dominant two-vessel runoff to the ankle wi th calcified and atretic posterior tibial artery. CT/CT angio abd aorta runof 64550 IMPRESSION: 1. No evidence of abdominal aortic aneurysm. 2. No significant common iliac or common femoral artery stenosis bilaterally. 3. Both superficial femoral arteries are patent to the popliteal hiatus. 4. Somewhat diminutive popliteal arteries bilaterally which are patent to the trifurcation. Densely calcified trifurcation bilaterally. 5. Diminutive two-vessel runoff to the right lower extremity. 6. Dominant two-vessel runoff to the left lower extremity with calcified and a tretic posterior tibial artery.
[2019-12-25 10:28] LABS: Blood Urea Nitrogen 30 mg/dL (8-23)
[2019-12-25] MEDS: iodixanol 320 mg/mL 100mL Btl IV (11:00)
== END 2019-12-25 09:41 | disposition home or self-care (01) ==
LOC: RAD 09:47
PROVIDERS: Family Provider Nurse Practitioner Family; PCP Nurse Practitioner Family; Visit Provider Internal Medicine Cardiovascular Disease
DX: I99.8 Other disorder of circulatory system (principal); I73.9 Peripheral vascular disease, unspecified; Z95.9 Presence of cardiac and vascular implant and graft, unspecified; Z89.429 Acquired absence of other toe(s), unspecified side
CPT/HCPCS: 36415; 75635; 82565; 84520

== ENCOUNTER 2020-07-05 09:31 | Outpatient (CLI) | payer MEDICARE, MEDICAID, SELFPAY ==
--- NOTE | 2020-07-05 10:15 | USCV_ITS ---
Deisi Rivers Age: 74 Gender: F : 1945 Exam Date: 07/05/2020 10:06 Ordering Phys: Brissa Interiano MD ([email or web address]) Technologist: Daljit Riley [place] [facility] [place] HISTORY: Lower extremity swelling. PROCEDURES: Right duplex Venous Insufficiency study of the Deep and Superficial systems was carried out according to normal protocol with the patient in supine positon for deep system and dependent position for the superficial system. FINDINGS: All deep veins demonstrated compressibility without evidence of intraluminal thrombus or increased echogenicity. Spectral analysis of Doppler signals demonstrates normal response to compression maneuvers indicating patency without obstruction. Reflux determinations were made with the patient in the dependent position, the weight being on the contralateral leg. Vein measurements and reflux times are listed below were applicable. SIGNIFICANT REFLUX IN RT GSAPH BELOW KNEE. PT WILL NOT BE ABLE TO TOLERATE OBLATION PROCEDURE. CONCLUSIONS No evidence of DVT in the above-mentioned identifiable veins. Significant venous reflux of greater than 500 ms(1250 msec) was noted at the below-knee segment of the greater saphenous vein on the right side. The venous diameter was 0.7 cm at this segment and was found to be at a depth of 2.35 cm. The venous dimensions of the other segments and the depth from the surface are as mentioned above Examination was performed only on the right side Dr Monica Sharma MD [facility] (Electronically Signed) Final Date: 06 July 2020 10:06 S
== END 2020-07-05 09:32 | disposition home or self-care (01) ==
LOC: RAD 09:34
PROVIDERS: PCP Family Medicine; Visit Provider Internal Medicine Cardiovascular Disease
DX: M79.89 Other specified soft tissue disorders (principal)
CPT/HCPCS: 93971

== ENCOUNTER 2020-09-03 14:35 | Inpatient (IN) | payer MEDICARE, MEDICAID, SELFPAY ==
[2020-09-03] VITALS (9 sets, daily range): BP systolic 117–170; BP diastolic 74–112; PULSE 105–115; RESP 25–40; TEMP 37.2; O2SAT 94–99; BMI 33.1
--- NOTE | 2020-09-03 14:57 | CTR_ITS ---
PROCEDURE INFORMATION: Exam: CT Angiography Chest With Contrast Exam date and time: 09/03/2020 3:45 PM Age: 74 years old Clinical indication: Shortness of breath; Additional info: SOB TECHNIQUE: Imaging protocol: Computed tomographic angiography of the chest with intravenous contrast. 3D rendering (Not supervised by radiologist): MIP and/or 3D reconstructed images were created by the technologist. Radiation optimization: All CT scans at this facility use at least one of these dose optimization techniques: automated exposure control; mA and/or kV adjustment per patient size (includes targeted exams where dose is matched to clinical indication); or iterative reconstruction. Contrast material: VISIPAQUE 320; Contrast volume: 74 ml; Contrast route: INTRAVENOUS (IV); COMPARISON: CR (CHEST, ) 09/03/2020 3:25 PM RADIATION DOSE METRICS: Total DLP (mGy-cm): 584.53 FINDINGS: Limitations: The study is limited due to patient respiratory motion. Pulmonary arteries: Central pulmonary arteries appear unremarkable. Primary and secondary branches are patent. The peripheral branches are not well seen due to patient motion. No evidence of pulmonary embolism, within the technical limits of the examination. Aorta: Thoracic aorta is mildly atherosclerotic. No aneurysm or dissection. Lungs: Extensive airspace infiltrates in the bilateral lower lobes, left worse than right, suggestive of pneumonia. Mild airspace disease also noted in the lingula. Pleural space: Small bilateral pleural effusions, left larger than right. Heart: Mild cardiomegaly is noted. Lymph nodes: Subcarinal lymph node measuring 1.6 cm short axis. Small bilateral hilar nodes are present. Bones/joints: Mild degenerative spine changes. No fracture or other acute osseous abnormality. Soft tissues: The soft tissues appear unremarkable. CT/CT angio chest PE protcl [id number] IMPRESSION: 1. The study is limited due to patient respiratory motion. 2. No evidence of pulmonary embolism, within the technical limits of the examination. 3. Mild cardiomegaly is noted. 4. Extensive airspace infiltrates in the bilateral lower lobes, left worse than right, suggestive of pneumonia. Mild airspace disease also noted in the lingula. 5. Small bilateral pleural effusions, left larger than right. Radiation Dose CTDIVOL = (mGy): DLP = 584.53 (mGy-cm)
--- NOTE | 2020-09-03 14:57 | XRR_ITS ---
PROCEDURE INFORMATION: Exam: XR Chest, 1 View Exam date and time: 09/03/2020 3:33 PM Age: 74 years old Clinical indication: Shortness of breath; Additional info: SOB TECHNIQUE: Imaging protocol: XR of the chest Views: 1 view. COMPARISON: CR XR chest 1V portable [id number] 11/05/2019 9:54 PM FINDINGS: Lungs: Airspace disease demonstrated in the left lower lobe, suspicious for pneumonia. Mild focal airspace disease seen at the right lung base, consistent with atelectasis versus pneumonia. Pleural space: Suspect small left pleural effusion. No right pleural effusion. No pneumothorax. Heart/Mediastinum: No cardiomegaly. Vasculature: The thoracic aorta is mildly atherosclerotic. Bones/joints: Unremarkable. XR/XR chest 1V portable [id number] IMPRESSION: 1. Airspace disease demonstrated in the left lower lobe, suspicious for pneumonia. 2. Mild focal airspace disease seen at the right lung base, consistent with atelectasis versus pneumonia. 3. Suspect small left pleural effusion.
--- NOTE | 2020-09-03 14:58 | ECG_ITS ---
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 Measurements Intervals [place] Rate: 110 P: 44 ID: [id number] QRS: 23 QRSD: 93 T: 105 QT: 336 QTc: 456 Interpretive Statements SINUS TACHYCARDIA WITH SHORT ID INTERVAL WITH FREQUENT VENTRICULAR PREMATURE COMPLEXES NONSPECIFIC ST & T-WAVE ABNORMALITY Compared to ECG 11/05/2019 17:29:43 Short ID interval now present Sinus rhythm no longer present T-wave abnormality still present Electronically Signed On 09-04-2020 9:24:16 DISTRICT SALES MANAGER by Corazon Ordonez M.D. [email or web address]
--- NOTE | 2020-09-03 14:59 | USR_ITS ---
PROCEDURE INFORMATION: Exam: US Duplex Lower Extremity Veins, Bilateral Exam date and time: 09/03/2020 3:18 PM Age: 74 years old Clinical indication: Pain; Leg, upper and leg, lower; Bilateral; Additional info: Bilat leg pain, SOB TECHNIQUE: Imaging protocol: Real-time duplex ultrasound of the extremities with 2-D chowdhury scale, color Doppler flow and spectral waveform analysis with image documentation. Complete exam focused on the bilateral lower extremity veins. COMPARISON: No relevant prior studies available. FINDINGS: Limitations: Evaluation limited by patient extremity pain. The right popliteal region and right peroneal region are not well seen. Right deep veins: Unremarkable. The common femoral, femoral, proximal profunda femoral and popliteal veins are patent without thrombus. Normal Doppler waveforms. Normal compressibility and/or augmentation response. Right superficial veins: Saphenofemoral junction is patent without thrombus. Left deep veins: Unremarkable. The common femoral, femoral, proximal profunda femoral and popliteal veins are patent without thrombus. Normal Doppler waveforms. Normal compressibility and/or augmentation response. Left superficial veins: Saphenofemoral junction is patent without thrombus. Soft tissues: Unremarkable. US/[place] [id number] IMPRESSION: 1. Evaluation limited by patient extremity pain. The right popliteal region and right peroneal region are not well seen. 2. No evidence of deep vein thrombosis, bilateral lower extremity.
--- NOTE | 2020-09-03 15:09 | ED_ITS ---
HPI - COVID General: Chief Complaint: COVID symptoms Stated Complaint: SOB; GROIN PAIN Time Seen by Provider: 09/03/20 14:41 Triage information: Has fever, cough or shortness of breath . Exposure to COVID + person last 14 days History of Present Illness: HPI Narrative: 74-year-old female [facility] patient with a history of dementia. She is known Covid positive, tested positive on 08/17. Technically she is out of her quarantine date. She presents with shortness of breath, and a complaint of groin pain there, which seems to be gone now. She does not complain of any specific groin pain but complains of generalized body aches. She is short of breath and tachypneic she has had a cough evidently as well. She is not a terribly reliable historian. MD complaint: known COVID positive Prior covid testing: yes, results known COVID 19 common symptoms: positive fever(s), cough, non-productive cough, dyspne a, fatigue and body aches; negative vomiting or diarrhea COVID 19 other sytmptoms: positive respiratory distress Pertinent comorbid conditions: diabetes and [place] patient Treatment prior to arrival: oxygen COVID Results: 2 No Data to Display Review of Systems General: Reports: ROS unobtainable due to medical condition and ROS unobtainable due to mental status Const: Reports: fever(s), body aches and fatigue Resp: Reports: dyspnea and non-productive cough GI: Denies: vomiting or diarrhea [facility] PFSH: Medical History (Updated 09/03/20 @ 23:33 by Juan Bustamante MD) Anemia Stable Dehiscence of amputation stump Dementia Depression Stable. Reduce dose of Zoloft secondary to initiation of linezolid Diabetes mellitus Hyperlipidemia Hypertension Neuropathy Non-pressure chronic ulcer of left ankle with fat layer exposed Post-tonsillectomy pain PVD (peripheral vascular disease) Type 2 diabetes mellitus with diabetic polyneuropathy Stable Surgical History History of tonsillectomy Status post amputation of toe Family History Sister Diabetes Family/Other Diabetes Daughter Diabetes Psychiatric illness Son Psychiatric illness Denies family history of CAD (coronary artery disease) Clotting disorder Dementia Hyperlipidemia Chronic kidney disease (CKD) Suicide Anesthesia complication Bleeding disorder Family history of premature coronary artery disease Lung disease Cancer Hypertension Stroke Social History Smoking and tobacco status: never smoked Second hand smoke exposure: No Alcohol intake: never History of recent travel: No Physical Exam Const: GENERAL APPEARANCE: in distress, ill appearing and frail appearing ORIENTATION/CONSCIOUSNESS: Yes oriented to person and Yes oriented to place; not oriented to time HENMT: COMMON NORMALS: normocephalic, external ears normal and Normal external nose present HEAD & SCALP: normocephalic FACE & SINUS: normal facial exam NOSE: Normal external nose present and No nasal discharge present EXTERNAL EAR: Yes external ears normal Eye: COMMON NORMALS: Equal, round and reactive pupils present, EOMs intact bilaterally and conjunctivae normal EYELID: eyelids normal CONJUNCTIVA: Yes conjunctivae normal PUPIL: Yes Equal, round and reactive pupils present Neck/C-Spine: GENERAL: No tracheal deviation Chest: COMMONS NORMALS: normal inspection of the chest CHEST: No tenderness Resp: COMMON NORMALS: clear to auscultation bilaterally EFFORT & INSPECTION: Yes tachypneic, Yes respiratory distress, No retractions, No uses accessory muscles and No tracheal deviation AUSCULTATION: clear to auscultation bilaterally, no rhonchi, no wheezes and diminished lung sounds Cardio: COMMON NORMALS: regular rhythm RATE: tachycardic RHYTHM: regular rhythm HEART SOUNDS: no murmurs PERIPHERAL PULSES: radial pulses present GI: INSPECTION: No abdominal distension AUSCULTATION: No Hyperactive bowel sounds present and No Hypoactive bowel sounds present PALPATION: No Guarding due to palpation present (GI) and No Rigid due to palpation PERCUSSION: no dullness to percussion and no tympanic to percussion Neuro: SENSORIUM/ORIENTATION: Yes oriented to person, Yes oriented to place and No oriented to time Skin: COMMON NORMALS: no rashes or lesions noted GENERAL SKIN EXAM: no rashes or lesions noted Course ED course: 74-year-old female [facility] patient. She tested positive for Covid 18 days ago. She presents short of breath. Sats have been good on 3 L. 95 to 98%. Heart rate around 100. She is mildly hypertensive. Chest x-ray shows bilateral pneumonia/pneumonitis. D-dimer was very high, CTA shows bilateral pneumonitis again, with no PE. She is getting dexamethasone here as well as a dose of remdesivir. Even though she is 18 days out, hospitalist physician is concerned about isolation and treating this patient outside of an ICU/VICU setting. Viral ICU bed is freed. Patient remained stable, with good sats on 3 L nasal cannula. She is mildly hypertensive still. She is mildly tachycardic. She will be admitted to the viral ICU. She has received remdesivir as well as dexamethasone. Vital Signs: Vital signs: Vital Signs Temperature 98.9 F 09/03/20 14:40 Pulse Rate 108 H 09/03/20 23:38 Respiratory Rate 28 H 09/03/20 23:38 Blood Pressure 163/83 09/03/20 23:38 Pulse Oximetry 99 09/03/20 23:38 MDM - COVID Lab Data Result diagrams: 09/03/20 15:05 09/03/20 15:05 Labs: Lab Results 09/03/20 09/03/20 09/03/20 Range/Units 15:05 15:05 15:05 WBC 11.4 H (4.0-10.0) 10^3/uL RBC 3.50 L (4.1-5.3) 10^6/uL Hgb 9.1 L (11.5-15.3) g/dL Hct 29.7 L (37.0-47.0) % MCV 84.9 (81-99) fL MCH 26.0 L (28.0-34.0) pg MCHC 30.6 (30.0-36.0) g/dL RDW 16.9 H (12.1-15.1) % Plt Count 369 (130-400) 10^3/cmm MPV 9.7 (7.4-10.4) fL Neut % (Auto) 79.0 % Lymph % (Auto) 11.6 % [place] % (Auto) 7.3 % Eos % (Auto) 0.7 % Baso % (Auto) 0.3 % Neut # (Auto) 9.03 H (1.8-7.7) 10^3/uL Lymph # (Auto) 1.3 (0.8-4.8) 10^3/uL [place] # (Auto) 0.8 (0.2-0.9) 10^3/uL Eos # (Auto) 0.1 (0.0-0.8) 10^3/uL Baso # (Auto) 0.0 (0.0-0.1) 10^3/uL Nucleated RBC % (auto) 0 % Nucleated RBCs # 0.0 /100WBC PT 14.70 (12.1-14.9) SECONDS INR 1.12 (0.8-1.2) D-Dimer 5.97 H (0-0.59) ug/mIFEU Specimen Type Sample Site ABG pH (7.35-7.45) ABG pCO2 (35-45) mmHg ABG pO2 (80.0-100.0) mmHg ABG HCO3 (22-26) mmol/L ABG Base Excess (-2.0-2.0) mmol/L Demetrius Test Hematocrit (37-47) % Hgb O2 Saturation (95-100) % Carboxyhemoglobin (0.4-20.1) %THgb Methemoglobin (0.4-1.5) % Total Hemoglobin (12-16) g/dL O2 Delivery Device O2 Liters/Min % FiO2 % [employer] ID Sodium 137 (136-145) mmol/L Potassium 5.0 (3.5-5.1) mmol/L Chloride 104 (98-107) mmol/L Carbon Dioxide 22 (22-29) mmol/L Anion Gap 16.0 (5-19) BUN 32 H (8-23) mg/dL Creatinine 1.3 H (0.5-0.9) mg/dL GFR Calculation Not Reportable Glucose 141 H (65-115) mg/dL Calculated Osmolality 293 (285-295) mOsm/kg Lactic Acid (0.5-2.2) mmol/L Calcium 8.9 (8.5-10.5) mg/dL Total Bilirubin 0.4 (0.15-1.2) mg/dL AST 11 (0-32) U/L ALT 11 (0-33) U/L Alkaline Phosphatase 122 H (35-105) IU/L Lactate Dehydrogenase 242 H (135-214) U/L Troponin T Baseline (0-10) ng/L Troponin T 120 Minute (0-10) ng/L Delta Troponin T (0-10) ABS# Troponin T Hi Sens 6Hr (0-10) ng/L Troponin T Hi Sens 6Hr Delta (0-12) ng/L C-Reactive Protein 231.6 H (0.0-4.9) mg/L NT-Pro-B Natriuret Pep 18919 H (0-450) pg/mL Total Protein 6.4 L (6.6-8.7) g/dL Albumin 2.6 L (3.5-5.2) g/dL Globulin 3.8 (1.3-4.6) g/dL Procalcitonin 1.08 H (0-0.5) ng/mL 09/03/20 09/03/20 09/03/20 Range/Units 15:05 15:05 15:15 WBC (4.0-10.0) 10^3/uL RBC (4.1-5.3) 10^6/uL Hgb (11.5-15.3) g/dL Hct (37.0-47.0) % MCV (81-99) fL MCH (28.0-34.0) pg MCHC (30.0-36.0) g/dL RDW (12.1-15.1) % Plt Count (130-400) 10^3/cmm MPV (7.4-10.4) fL Neut % (Auto) % Lymph % (Auto) % [place] % (Auto) % Eos % (Auto) % Baso % (Auto) % Neut # (Auto) (1.8-7.7) 10^3/uL Lymph # (Auto) (0.8-4.8) 10^3/uL [place] # (Auto) (0.2-0.9) 10^3/uL Eos # (Auto) (0.0-0.8) 10^3/uL Baso # (Auto) (0.0-0.1) 10^3/uL Nucleated RBC % (auto) % Nucleated RBCs # /100WBC PT (12.1-14.9) SECONDS INR (0.8-1.2) D-Dimer (0-0.59) ug/mIFEU Specimen Type Arterial Sample Site Radial, right ABG pH 7.42 (7.35-7.45) ABG pCO2 35.7 (35-45) mmHg ABG pO2 95.1 (80.0-100.0) mmHg ABG HCO3 22.9 (22-26) mmol/L ABG Base Excess -1.3 (-2.0-2.0) mmol/L Demetrius Test Pos Hematocrit 28.3 L (37-47) % Hgb O2 Saturation 96.2 (95-100) % Carboxyhemoglobin 1.1 (0.4-20.1) %THgb Methemoglobin 0.8 (0.4-1.5) % Total Hemoglobin 9.2 L (12-16) g/dL O2 Delivery Device Nc O2 Liters/Min 3.0 % FiO2 32.0 % [employer] ID Amh Sodium (136-145) mmol/L Potassium (3.5-5.1) mmol/L Chloride (98-107) mmol/L Carbon Dioxide (22-29) mmol/L Anion Gap (5-19) BUN (8-23) mg/dL Creatinine (0.5-0.9) mg/dL GFR Calculation Glucose (65-115) mg/dL Calculated Osmolality (285-295) mOsm/kg Lactic Acid 0.9 (0.5-2.2) mmol/L Calcium (8.5-10.5) mg/dL Total Bilirubin (0.15-1.2) mg/dL AST (0-32) U/L ALT (0-33) U/L Alkaline Phosphatase (35-105) IU/L Lactate Dehydrogenase (135-214) U/L Troponin T Baseline 141 H* (0-10) ng/L Troponin T 120 Minute (0-10) ng/L Delta Troponin T (0-10) ABS# Troponin T Hi Sens 6Hr (0-10) ng/L Troponin T Hi Sens 6Hr Delta (0-12) ng/L C-Reactive Protein (0.0-4.9) mg/L NT-Pro-B Natriuret Pep (0-450) pg/mL Total Protein (6.6-8.7) g/dL Albumin (3.5-5.2) g/dL Globulin (1.3-4.6) g/dL Procalcitonin (0-0.5) ng/mL 09/03/20 09/03/20 Range/Units 16:50 21:42 WBC (4.0-10.0) 10^3/uL RBC (4.1-5.3) 10^6/uL Hgb (11.5-15.3) g/dL Hct (37.0-47.0) % MCV (81-99) fL MCH (28.0-34.0) pg MCHC (30.0-36.0) g/dL RDW (12.1-15.1) % Plt Count (130-400) 10^3/cmm MPV (7.4-10.4) fL Neut % (Auto) % Lymph % (Auto) % [place] % (Auto) % Eos % (Auto) % Baso % (Auto) % Neut # (Auto) (1.8-7.7) 10^3/uL Lymph # (Auto) (0.8-4.8) 10^3/uL [place] # (Auto) (0.2-0.9) 10^3/uL Eos # (Auto) (0.0-0.8) 10^3/uL Baso # (Auto) (0.0-0.1) 10^3/uL Nucleated RBC % (auto) % Nucleated RBCs # /100WBC PT (12.1-14.9) SECONDS INR (0.8-1.2) D-Dimer (0-0.59) ug/mIFEU Specimen Type Sample Site ABG pH (7.35-7.45) ABG pCO2 (35-45) mmHg ABG pO2 (80.0-100.0) mmHg ABG HCO3 (22-26) mmol/L ABG Base Excess (-2.0-2.0) mmol/L Demetrius Test Hematocrit (37-47) % Hgb O2 Saturation (95-100) % Carboxyhemoglobin (0.4-20.1) %THgb Methemoglobin (0.4-1.5) % Total Hemoglobin (12-16) g/dL O2 Delivery Device O2 Liters/Min % FiO2 % [employer] ID Sodium (136-145) mmol/L Potassium (3.5-5.1) mmol/L Chloride (98-107) mmol/L Carbon Dioxide (22-29) mmol/L Anion Gap (5-19) BUN (8-23) mg/dL Creatinine (0.5-0.9) mg/dL GFR Calculation Glucose (65-115) mg/dL Calculated Osmolality (285-295) mOsm/kg Lactic Acid (0.5-2.2) mmol/L Calcium (8.5-10.5) mg/dL Total Bilirubin (0.15-1.2) mg/dL AST (0-32) U/L ALT (0-33) U/L Alkaline Phosphatase (35-105) IU/L Lactate Dehydrogenase (135-214) U/L Troponin T Baseline (0-10) ng/L Troponin T 120 Minute 137.2 H (0-10) ng/L Delta Troponin T -3.8 L (0-10) ABS# Troponin T Hi Sens 6Hr 123.6 H (0-10) ng/L Troponin T Hi Sens 6Hr Delta -17.4 L (0-12) ng/L C-Reactive Protein (0.0-4.9) mg/L NT-Pro-B Natriuret Pep (0-450) pg/mL Total Protein (6.6-8.7) g/dL Albumin (3.5-5.2) g/dL Globulin (1.3-4.6) g/dL Procalcitonin (0-0.5) ng/mL COVID Results: No Data to Display Discharge Plan Discharge Patient Disposition: Admitted As Inpatient Admit Provider: Juan Bustamante Clinical Impression: Pneumonia due to COVID-19 virus Respiratory failure Qualifiers: Chronicity: acute Respiratory failure complication: hypoxia Qualified Code(s): J96.01 - Acute respiratory failure with hypoxia Condition: Stable Referrals: Paul Warner Jr, MD [Primary Care Provider] - Discharge Date/Time: 09/03/20 23:39 Coding Level of Care Code ED Hospital Intern for [facility] Fwd Exam Comprehensive
[2020-09-03 15:20] LABS: Basophils % 0.3 %; Eosinophils # 0.1 10^3/uL (0.0-0.8); Eosinophils % 0.7 %; Hematocrit 29.7 % (37.0-47.0); Hemoglobin 9.1 g/dL (11.5-15.3); Lymphocytes # 1.3 10^3/uL (0.8-4.8); Lymphocytes % 11.6 %; Mean Corpuscular HGB Conc 30.6 g/dL (30.0-36.0); Mean Corpuscular Volume 84.9 fL (81-99); Mean Platelet Volume 9.7 fL (7.4-10.4); Monocytes # 0.8 10^3/uL (0.2-0.9); Monocytes % 7.3 %; Neutrophils # 9.03 10^3/uL (1.8-7.7); Nucleated Red Blood Cells % 0 %; Platelet Count 369 10^3/cmm (130-400); Red Cell Distribution Width 16.9 % (12.1-15.1); White Blood Count 11.4 10^3/uL (4.0-10.0)
[2020-09-03 15:26] LABS: ABG PCO2 35.7 mmHg (35-45); ABG PH Result 7.42 (7.35-7.45); Arterial Blood Gas Hematocrit 28.3 % (37-47); Base Excess ABG -1.3 mmol/L (-2.0-2.0); Blood Gas Allen Test Pos; Blood Gas Operator Identificat AMH; Blood Gas Sample Site Radial, right; Blood Gas Sample Type Arterial; Carboxyhemoglobin 1.1 %THgb (0.4-20.1); HCO3 ABG 22.9 mmol/L (22-26); HGB O2 Sat 96.2 % (95-100); Methemoglobin 0.8 % (0.4-1.5); Oxygen Device NC; PO2 ABG 95.1 mmHg (80.0-100.0); Total Hemoglobin 9.2 g/dL (12-16)
[2020-09-03 15:55] LABS: INR 1.12 (0.8-1.2)
[2020-09-03] MEDS: sodium chloride 0.9% 500 ML 999 ML IV (16:01)
[2020-09-03 16:04] LABS: D Dimer 5.97 ug/mIFEU (0-0.59)
[2020-09-03 16:10] LABS: Lactic Sepsis W/Reflex 0.9 mmol/L (0.5-2.2)
[2020-09-03 16:20] LABS: NT Pro B Type Natriuretic Pept 12693 pg/mL (0-450); Procalcitonin 1.08 ng/mL (0-0.5)
[2020-09-03 16:32] LABS: Alanine Aminotransferase 11 U/L (0-33); Albumin Level 2.6 g/dL (3.5-5.2); Alkaline Phosphatase 122 IU/L (35-105); Aspartate Amino Transferase 11 U/L (0-32); C Reactive Protein 231.6 mg/L (0.0-4.9); Chloride 104 mmol/L (98-107); Globulin 3.8 g/dL (1.3-4.6); Glucose 141 mg/dL (65-115); Lactate Dehydrogenase 242 U/L (135-214); Sodium 137 mmol/L (136-145); Total Protein 6.4 g/dL (6.6-8.7)
[2020-09-03 16:37] LABS: Troponin(5th) Baseline 141 ng/L (0-10)
[2020-09-03 16:45] LABS: Blood Urea Nitrogen 32 mg/dL (8-23); Calcium 8.9 mg/dL (8.5-10.5); Carbon Dioxide 22 mmol/L (22-29); Osmolality Calculated 293 mOsm/kg (285-295); Total Bilirubin 0.4 mg/dL (0.15-1.2)
--- NOTE | 2020-09-03 16:58 | ECG_ITS ---
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 Measurements Intervals [place] Rate: 74 P: 55 NH: 141 QRS: 2 QRSD: 102 T: 78 QT: 437 QTc: 487 Interpretive Statements SINUS RHYTHM POSSIBLE ANTERIOR MYOCARDIAL INFARCTION [30 ms Q WAVE IN V3/V4, OR R < 0.2 mV IN V4], OF INDETERMINATE AGE Compared to ECG 09/04/2020 04:01:49 Myocardial infarct finding now present Ventricular premature complex(es) no longer present ST (T wave) deviation no longer present Electronically Signed On 09-05-2020 8:23:08 [employer] by Corazon Ordonez M.D. [id number]
[2020-09-03] MEDS: iodixanol 320 mg/mL 100mL Btl IV (17:02)
[2020-09-03 17:23] LABS: Troponin 5 2HR Delta -3.8 ABS# (0-10)
[2020-09-03 17:24] LABS: Troponin 5 2HR 137.2 ng/L (0-10)
[2020-09-03] MEDS: dexamethasone 4 mg/mL INJ 6 MG IVP (19:03)
--- NOTE | 2020-09-03 20:29 | XRR_ITS ---
NOTE: Report was unsigned for reason: Order was edited. Original Signature date and time was: 09/03/20 @2146 PROCEDURE INFORMATION: Exam: XR Pelvis Exam date and time: 09/03/2020 9:05 PM Age: 74 years old Clinical indication: Hip pain; Right hip TECHNIQUE: Imaging protocol: XR pelvis. Views: 1 or 2 view. COMPARISON: No relevant prior studies available. FINDINGS: Bones/joints: Mild degenerative change of the bilateral hips. No fracture or other acute osseous abnormality. SI joints and symphysis pubis are intact. Soft tissues: The soft tissues appear unremarkable. MTDD XR/XR pelvis min 3V [id number] IMPRESSION: No acute abnormality demonstrated.
--- NOTE | 2020-09-03 20:58 | ECG_ITS ---
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 Measurements Intervals [place] Rate: 103 P: 54 SD: 141 QRS: 29 QRSD: 93 T: 82 QT: 347 QTc: 454 Interpretive Statements SINUS TACHYCARDIA WITH FREQUENT VENTRICULAR PREMATURE COMPLEXES NONSPECIFIC ST & T-WAVE ABNORMALITY ABNORMAL RHYTHM ECG Compared to ECG 09/03/2020 14:56:11 Ventricular premature complex(es) now present Short SD interval no longer present T-wave abnormality still present Electronically Signed On 09-04-2020 9:28:43 [employer] by Corazon Ordonez M.D. [id number]
--- NOTE | 2020-09-03 21:19 | PC.NURSE ---
EKG done at 2114 and shown to ER doctor
[2020-09-03] MEDS: FUROsemide 10 mg/mL SDV 4mL 40 MG IVP (21:45)
[2020-09-03 22:16] LABS: Troponin 5 6HR 123.6 ng/L (0-10); Troponin 5 6HR Delta -17.4 ng/L (0-12)
--- NOTE | 2020-09-03 23:24 | P.HP_ITS ---
Providers/Chief Complaint Primary Care Provider: Paul Warner Jr, MD Chief Complaint: SOB; GROIN PAIN History of Present Illness Deisi Rivers is a 74 year old female with a past medical history of dementia, insulin-dependent type 2 diabetes mellitus, iron deficiency anemia, asthma on albuterol and Advil, status post partial amputation right foot second osteomyelitis, severe peripheral vascular disease, right leg villarreal ulcer, resident of [facility], who presents to [facility] due to complaints of shortness of breath, hypoxia, tachypnea, low-grade fevers, fatigue, malaise. Currently patient is in the ER, she is alert oriented x2, having episodes of confusion, but does answer some questions appropriately. According to the [place] [facility], patient tested positive for Covid on August 19, she has had low- grade fevers, did not require any oxygen, no shortness of breath complaints, had some fatigue, malaise, normally she is alert oriented x3, can ambulate without any significant symptomatology, she is quite independent. However tonight patient had episodes of intermittent tachypnea, respiratory rates being 20s to 3 0s, and her oxygen saturation dropped to the low 80s, and she was looking more short of breath so they sent her to the emergency room. Patient states that she feels short of breath, she has a productive cough, low-grade fevers, chills, fatigue, malaise. She feels a bit better since she has been here she is got Lasix, remdesivir. Denies any significant cardiac history, denies a history of strokes, denies a history of TIAs, denies a history of COPD, does have a history of asthma, is not a smoker. Review of Systems Const: Reports: fever(s), chills, fatigue and malaise Eyes: Denies: change in vision or blurry vision ENMT: Denies: nasal congestion Card: Denies: chest pain, palpitations or irregular heart rhythm Resp: Reports: dyspnea and productive cough; Denies: non-productive cough or wheezing GI: Denies: abdominal pain, nausea, vomiting, hematemesis, diarrhea, constipation, hematochezia or melena : Denies: flank pain, dysuria or urinary frequency Musc: Denies: neck pain or back pain Skin/Breast: Denies: rash Neuro: Denies: headache(s), dizziness or vertigo Psych: Denies: anxiety or depression Endo: Denies: polyuria or polydipsia Medications/Allergies Home Medications Medication Instructions Recorded Confirmed Last Taken Type hydroxyzine HCl 25 mg tablet 25 mg PO .bedtime tab 11/05/19 06/10/20 11/04/19 20:00 History memantine 28 mg capsule 28 mg PO ONCE 11/05/19 06/10/20 11/05/19 08:00 History sprinkle,extended release 24hr multivitamin,lb-basd-hlbvanqx 1 tab PO ONCE 11/05/19 06/10/20 11/05/19 08:00 History rosuvastatin 20 mg sprinkle capsule 20 mg PO BEDTIME 11/05/19 06/10/20 11/05/19 08:00 History insulin asp prt-insulin aspart 40 unit SUBCUT QPM #10 ml 11/10/19 06/10/20 Unknown Rx [Novolog Mix 70-30 U-100 Insuln] insulin asp prt-insulin aspart 70 unit SUBCUT DAILY #10 ml 11/10/19 06/10/20 Unknown Rx [Novolog Mix 70-30 U-100 Insuln] insulin detemir U-100 [Levemir 20 unit SUBCUT BEDTIME #10 ml 11/10/19 06/10/20 Unknown Rx U-100 Insulin] sertraline 25 mg PO DAILY #30 tab 11/10/19 06/10/20 Unknown Rx acetaminophen 325 mg tablet 325 mg PO QID PRN 12/10/19 06/10/20 Unknown History bisacodyl 10 mg rectal suppository 10 mg LA DAILY PRN 12/10/19 06/10/20 Unknown History sennosides 8.6 mg tablet 8.6 mg PO BID PRN 12/10/19 06/10/20 Unknown History fluticasone 250 mcg-salmeterol 50 1 inh INHALATION BID each 06/10/20 06/10/20 Unknown History mcg/dose blistr powdr for inhalation Allergies Allergy/AdvReac Type Severity Reaction Status Date / Time citalopram [From Celexa] Allergy ALGY-Hives Verified 06/10/20 11:19 meloxicam Allergy ALGY-Hives Verified 06/10/20 11:19 shellfish derived Allergy ALGY-Difficulty Verified 06/10/20 11:19 Swallowing PFSH Acute PFSH: Medical History Anemia Stable Dehiscence of amputation stump Dementia Depression Stable. Reduce dose of Zoloft secondary to initiation of linezolid Diabetes mellitus Hyperlipidemia Hypertension Neuropathy Non-pressure chronic ulcer of left ankle with fat layer exposed Post-tonsillectomy pain PVD (peripheral vascular disease) Type 2 diabetes mellitus with diabetic polyneuropathy Stable Surgical History History of tonsillectomy Status post amputation of toe Family History Sister Diabetes Family/Other Diabetes Daughter Diabetes Psychiatric illness Son Psychiatric illness Denies family history of CAD (coronary artery disease) Clotting disorder Dementia Hyperlipidemia Chronic kidney disease (CKD) Suicide Anesthesia complication Bleeding disorder Family history of premature coronary artery disease Lung disease Cancer Hypertension Stroke Social History Smoking and tobacco status: never smoked Second hand smoke exposure: No Alcohol intake: never History of recent travel: No Vitals/I&O/Wt Last Vital Signs Temp 98.9 F 09/03/20 14:40 Pulse 108 H 09/03/20 22:00 Resp 28 H 09/03/20 22:00 BP 163/83 09/03/20 22:00 Pulse Ox 99 09/03/20 22:00 09/03/20 09/03/20 09/04/20 14:59 22:59 06:59 Intake Total 600 / 600 Balance 600 / 600 Weight last 48 hrs Weight 104.78 kg Physical Exam Const: COMMON NORMALS: no acute distress GENERAL APPEARANCE: cooperative and ill appearing ORIENTATION/CONSCIOUSNESS: Yes oriented to person, Yes oriented to place and Yes confused; not oriented to time HENMT: COMMON NORMALS: normocephalic HEAD & SCALP: normocephalic Eye: COMMON NORMALS: Equal, round and reactive pupils present, EOMs intact bilaterally and no papilledema GENERAL EYE: appearance normal, both eyes and all related structures PUPIL: Yes Equal, round and reactive pupils present DIRECT OPHTHALMOSCOPY: Yes no papilledema Neck/C-Spine: COMMON NORMALS: full ROM, no lymphadenopathy, no JVD and Thyroid normal THYROID: Thyroid normal Lymph: LYMPHATIC: no lymphadenopathy noted Resp: COMMON NORMALS: normal respiratory effort and No retractions EFFORT & INSPECTION: Yes tachypneic AUSCULTATION: crackles Laterality: bilateral Cardio: COMMON NORMALS: no JVD, regular rate, regular rhythm, S1 normal heart sound present, S2 normal heart sound present, No gallops present (Cardio), No clicks present (Cardio) and No murmurs present (Cardio) RATE: tachycardic RHYTHM: regular rhythm HEART SOUNDS: S1 normal heart sound present and S2 normal heart sound present GI: COMMON NORMALS: Normal to inspection, nondistended, normoactive bowel sounds present, Soft to palpation, non-tender and No hepatosplenomegaly present PALPATION: Yes Soft to palpation and Yes No hepatosplenomegaly present Extremity: COMMON NORMALS: normal to inspection, full ROM and no pedal edema Neuro: COMMON NORMALS: moves all extremities and no focal motor deficits SENSORIUM/ORIENTATION: Yes alert, Yes oriented to person, Yes oriented to place and No oriented to time Psych: APPEARANCE: Yes grossly normal Urinary Catheter Management^: Harrison: Cath Placed During This Visit: yes Reason for Continuing Indwelling Catheter: Accurate Measurement of Urinary Output in Critically Ill Patients Urinary Catheter Date of Insertion: 09/03/20 Urinary Catheter Time of Insertion: 20:19 Data : 09/03/20 15:05 09/03/20 15:05 Micro: Microbiology 09/03/20 16:25 Blood Culture - Preliminary Blood SPECIMEN COLLECTED 09/03/20 15:05 Blood Culture - Preliminary Blood SPECIMEN COLLECTED A&P Assessment and plan (1) Acute respiratory failure with hypoxia: Secondary to COVID-19 pneumonia, secondary bacterial pneumonia, pulmonary edema -With septic encephalopathy Plan: -Admit to viral ICU -Therapeutic Lovenox for DVT and PE prophylaxis, high risk of hypercoagulability -according to [place] [facility] patient is a full code, will need to revisit when she is more coherent -Decadron 6 mg IV push once daily -Remdesivir for 6 days -Oxygen therapy -Lasix 40 mg IV push daily, monitor urine output, monitor creatinine, keep 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 on the 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 side, does have a right pleural effusion, pulmonary edema -Rocephin and azithromycin for antibiotic coverage -Daily EKGs monitor QTC Status: Acute (2) Pneumonia due to COVID-19 virus: Status: Acute (3) Myocarditis due to COVID-19 virus: -No history of CAD -EKG does show left bundle branch block, which is new -Baseline troponin 141, 120-minute 137.2, 6-hour 123.6, delta -17.4, BNP 12 693 -No complaints of chest pain -Continue aspirin 81 mg, atorvastatin 40 mg daily, Coreg 3.125 twice daily, on therapeutic Lovenox as above -Ordered cardiac echocardiogram -Daily EKGs, telemetry monitoring Status: Acute (4) NSTEMI (non-ST elevated myocardial infarction): Status: Acute (5) Diabetes mellitus: -Moderate dose sliding scale Status: Acute (6) Peripheral arterial disease: Status: Acute (7) Dementia: Status: Acute (8) Hypertension: Status: Acute (9) Septic encephalopathy: Status: Acute Attestations Medical Necessity Statement*: Patient requires hospitalization, inpatient, greater than 2 midnights, COVID-19 pneumonia, pulmonary edema, myocarditis Coding Level of Care Code Acute Crime Scene Examiner for [facility] Fwd Diagnoses Acute respiratory failure with hypoxia J96.01 Pneumonia due to COVID-19 virus U07.1; J12.89 Myocarditis due to COVID-19 virus U07.1; I40.0 NSTEMI (non-ST elevated myocardial infarction) I21.4 Diabetes mellitus E11.9 Peripheral arterial disease I73.9 Dementia F03.90 Hypertension I10 Septic encephalopathy G93.41
[2020-09-04] VITALS (28 sets, daily range): BP systolic 122–185; BP diastolic 50–95; PULSE 69–111; RESP 14–33; TEMP 36.8–37.2; O2SAT 92–99
--- NOTE | 2020-09-04 00:15 | USCV_ITS ---
Deisi Rivers Age: 74 Gender: F : 1945 Exam Date: 09/04/2020 10:17 Ordering Phys: Juan Bustamante MD Technologist: Netta Edmonds Exam Location: [facility] Indication: SOB BP: 152 / 68 HR: 73 Rhythm: Sinus Technical Quality: Technically difficult study MEASUREMENTS (Male / Female) Normal Values 2D ECHO LV Diastolic Diameter PLAX 5.0 cm 4.2 - 5.9 / 3.9 - 5.3 cm LV Systolic Diameter PLAX 4.5 cm LV Chamber Size 5.0 cm IVS Diastolic Thickness 1.2 cm 0.6 - 1.0 / 0.6 - 0.9 cm IVS Systolic Thickness 1.2 cm LVPW Diastolic Thickness 1.2 cm 0.6 - 1.0 / 0.6 - 0.9 cm LVPW Systolic Thickness 1.2 cm RV Chamber Size 3.1 cm LVOT Diameter 1.8 cm LV Ejection Fraction 2D Teich 21.9 % LA Diameter 3.5 cm LA Width 3.9 cm LA Height 4.9 cm RA Width 2.2 cm RA Height 4.4 cm Aorta at Sinotubular Diameter 2.4 cm M-MODE LV Diastolic Diameter MM 5.0 cm 4.2 - 5.9 / 3.9 - 5.3 cm LV Systolic Diameter MM 3.9 cm LV Ejection Fraction MM Teich 42.4 % IVS Diastolic Thickness MM 1.9 cm 0.6 - 1.0 / 0.6 - 0.9 cm IVS Systolic Thickness MM 1.7 cm LVPW Diastolic Thickness MM 1.4 cm 0.6 - 1.0 / 0.6 - 0.9 cm LVPW Systolic Thickness MM 1.6 cm Aortic Annulus Diameter 3.3 cm LA Ao Ratio MM 1.1 MV E Point Septal Separation 2.5 cm DOPPLER AV Peak Velocity 92.0 cm/s LVOT Peak Velocity 74.0 cm/s AV Area Cont Eq vti 2.1 cm squared AV Area Cont Eq pk 2.0 cm squared MV Area PHT 3.3 cm squared Mitral E to A Ratio 1.0 MV E' Velocity 55.0 cm/s Mitral E to MV E' Ratio 18.4 Mitral E to LV E' Lateral Ratio 14.3 Mitral E to LV E' Septal Ratio 26.4 TR Peak Velocity 219.0 cm/s TR Peak Gradient 19.2 mmHg TV Peak E Velocity 40.0 cm/s PV Peak Velocity 76.0 cm/s RV Acceleration Time 0.1 s RV Ejection Time 0.3 s RV AcT/ET 0.3 FINDINGS Left Ventricle Mildly increased left ventricular cavity size. Severely decreased left ventricular systolic function. Left ventricular ejection fraction is estimated at 25-30 %. Possible septal hypokinesis. This study is inadequate for estimation of regional wall motion abnormality. Grade II diastolic dysfunction, moderately elevated filling pressures. Right Ventricle Upper normal right ventricular size and low normal systolic function. Right Atrium Normal right atrial size. Left Atrium Moderately increased left atrial size. Mitral Valve Mild mitral annular calcification. Markedly thickened mitral valve. No mitral valve stenosis. Mild mitral valve regurgitation. Aortic Valve Mildly thickened trileaflet aortic valve. No aortic valve stenosis. No aortic valve regurgitation. Tricuspid Valve Structurally normal tricuspid valve. No tricuspid valve stenosis. Mild tricuspid valve regurgitation. Pulmonic Valve Pulmonic valve not well visualized. Pericardium No pericardial effusion. Aorta Normal size aortic root and proximal ascending aorta. CONCLUSIONS 1. This is a technically very difficult study. 2. Normal left ventricular cavity size. Severely decreased left ventricular systolic function. Left ventricular ejection fraction is estimated at 25-30 %. Possible septal hypokinesis. This study is inadequate for estimation of regional wall motion abnormality. Grade II diastolic dysfunction, moderately elevated filling pressures. 3. Mild mitral and tricuspid valve regurgitation. 4. No prior similar studies to compare. Corazon Ordonez MD (Electronically Signed) Final Date: 04 September 2020 20:27 S
[2020-09-04] MEDS: cefTRIAXone 1,000 MG in sodium chloride 0.9% (plus) 50 ML 100 MG IV (00:40)
[2020-09-04] MEDS: azithromycin 500 MG in sodium chloride 0.9% 250 ML 250 MG IV (00:40)
[2020-09-04] MEDS: enoxaparin 100 mg/mL Syringe SUBCUT ×2 (00:41→11:42)
--- NOTE | 2020-09-04 00:55 | PC.NURSE ---
Patient arrived to [facility] at 0000. Patient is confused with questions but is sleeping soundly at this time. Lung sounds are clear in upper lobes, but crackles and course crackles are present in lower bases. BS active in all 4 quadrants. Skin status ulcer on Right villarreal and 2nd toe amputated on right foot. Patient is on 3L NC and O2 sats are maintaining 97. Heart rate is slightly elevated at 107 with several PVC's present. Bilateral pedal pulses palpable. Call button within reach. Continue care.
[2020-09-04] MEDS: carvedilol 3.125 mg Tablet PO ×2 (01:09→11:42)
[2020-09-04] MEDS: aspirin 81 mg EC Tablet PO (01:09)
[2020-09-04 04:01] LABS: ABG PCO2 41.6 mmHg (35-45); ABG PH Result 7.32 (7.35-7.45); Arterial Blood Gas Hematocrit 31.1 % (37-47); Base Excess ABG -4.6 mmol/L (-2.0-2.0); Blood Gas Allen Test Pos; Blood Gas Sample Site Radial, right; Blood Gas Sample Type Arterial; HCO3 ABG 21.3 mmol/L (22-26); Oxygen Device NC
[2020-09-04 05:24] LABS: Basophils % 0.3 %; Hematocrit 32.2 % (37.0-47.0); Hemoglobin 9.6 g/dL (11.5-15.3); Lymphocytes # 0.7 10^3/uL (0.8-4.8); Lymphocytes % 6.2 %; Mean Corpuscular HGB Conc 29.8 g/dL (30.0-36.0); Mean Corpuscular Hemoglobin 25.8 pg (28.0-34.0); Mean Corpuscular Volume 86.6 fL (81-99); Mean Platelet Volume 9.3 fL (7.4-10.4); Monocytes # 0.1 10^3/uL (0.2-0.9); Neutrophils # 9.97 10^3/uL (1.8-7.7); Neutrophils % 91.1 %; Nucleated Red Blood Cells % 0 %; Platelet Count 388 10^3/cmm (130-400); Red Blood Count 3.72 10^6/uL (4.1-5.3); White Blood Count 10.9 10^3/uL (4.0-10.0)
[2020-09-04 05:47] LABS: Lactic Sepsis W/Reflex 0.9 mmol/L (0.5-2.2)
--- NOTE | 2020-09-04 06:00 | ECG_ITS ---
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 Measurements Intervals [place] Rate: 83 P: 48 AK: 137 QRS: 17 QRSD: 96 T: 69 QT: 404 QTc: 475 Interpretive Statements SINUS RHYTHM WITH OCCASIONAL VENTRICULAR PREMATURE COMPLEXES MODERATE ST DEPRESSION [0.05+ mV ST DEPRESSION] Compared to ECG 09/03/2020 21:13:49 ST (T wave) deviation now present Sinus tachycardia no longer present T-wave abnormality no longer present Electronically Signed On 09-04-2020 9:26:56 MANAGER DOCUMENTATION by Corazon Ordonez M.D. [email or web address]
[2020-09-04 06:01] LABS: INR 1.24 (0.8-1.2)
[2020-09-04 06:04] LABS: Alanine Aminotransferase 10 U/L (0-33); Albumin Level 2.5 g/dL (3.5-5.2); Alkaline Phosphatase 131 IU/L (35-105); Anion Gap 17.9 (5-19); Aspartate Amino Transferase 12 U/L (0-32); Blood Urea Nitrogen 36 mg/dL (8-23); C Reactive Protein 223.5 mg/L (0.0-4.9); Calcium 8.4 mg/dL (8.5-10.5); Carbon Dioxide 20 mmol/L (22-29); Chloride 107 mmol/L (98-107); Globulin 3.9 g/dL (1.3-4.6); Glucose 281 mg/dL (65-115); Magnesium 1.7 mg/dL (1.7-2.3); Osmolality Calculated 306 mOsm/kg (285-295); Phosphorus 5.6 mg/dL (2.5-4.5); Potassium 5.9 mmol/L (3.5-5.1); Sodium 139 mmol/L (136-145); Total Bilirubin 0.2 mg/dL (0.15-1.2); Total Protein 6.4 g/dL (6.6-8.7)
[2020-09-04 06:11] LABS: NT Pro B Type Natriuretic Pept 16577 pg/mL (0-450); Procalcitonin 0.76 ng/mL (0-0.5)
[2020-09-04 06:12] LABS: Slide Review Slide Review Perform
--- NOTE | 2020-09-04 06:27 | PC.NURSE ---
Patient rested soundly all shift. Harrison in place. Continue care.
--- NOTE | 2020-09-04 07:00 | XRR_ITS ---
PROCEDURE INFORMATION: Exam: XR Chest, 1 View Exam date and time: 09/04/2020 8:48 AM Age: 74 years old Clinical indication: Shortness of breath; Additional info: SOB TECHNIQUE: Imaging protocol: XR of the chest Views: 1 view. COMPARISON: CR (CHEST, ) 09/03/2020 3:25 PM FINDINGS: Lungs: There is opacification of the left base consistent with left lower lobe pneumonia. There is a minimal improvement since previous examination. Scattered fibrotic densities are present in the right lung. Pleural space: Unremarkable. No pleural effusion. No pneumothorax. Heart/Mediastinum: Unremarkable. No cardiomegaly. Bones/joints: Unremarkable. XR/XR chest 1V portable [id number] IMPRESSION: Left lower lobe pneumonia slightly improved.
[2020-09-04 07:42] LABS: Glucose Point of Care 297 mg/dL (70-110)
[2020-09-04] MEDS: FUROsemide 10 mg/mL SDV 4mL 40 MG IVP (07:48)
[2020-09-04] MEDS: dexamethasone 4 mg/mL INJ 6 MG IVP (07:48)
[2020-09-04] MEDS: albuterol 8 gm MDI 1 PUFF INHALATION ×2 (08:13→19:58)
[2020-09-04] MEDS: sertraline 50 mg Tablet 25 MG PO (08:14)
[2020-09-04] MEDS: multivitamin therapeutic Tablet 1 TAB PO (08:14)
[2020-09-04 11:40] LABS: Glucose Point of Care 375 mg/dL (70-110)
--- NOTE | 2020-09-04 11:40 | PC.PT ---
PT evaluation contraindicated due to current lab values. Will assess later once lab values are WNLs
--- NOTE | 2020-09-04 11:41 | PC.OT ---
Occupational Therapy evaluation held at this time, as therapy is contraindicated due to current lab levels.
[2020-09-04 17:04] LABS: Glucose Point of Care 400 mg/dL (70-110)
[2020-09-04] MEDS: atorvastatin 40 mg Tablet 80 MG PO (20:58)
--- NOTE | 2020-09-04 21:49 | PM.PN ---
Subjective Subjective: Interval history: She was somnolent this morning, but wakes up to voice, knows she is in the hospital, but got the town wrong. Did not remember the year. Participate with review of systems, denies any chest pain. Reports breathing is comfortable. States she is hungry. No nausea vomiting or diarrhea. Vitals/I&O/Wt Last Vital Signs Temp 98.4 F 09/04/20 20:00 Pulse 73 09/04/20 20:00 Resp 16 09/04/20 20:00 BP 153/95 09/04/20 20:00 Pulse Ox 94 09/04/20 20:00 09/04/20 09/04/20 09/04/20 06:59 14:59 22:59 Intake Total 300 / 900 350 / 350 350 / 700 Output Total 1800 / 1800 500 / 500 125 / 625 Balance -1500 / -900 -150 / -150 225 / 75 Weight last 48 hrs Weight 104.78 kg Physical Exam Const: COMMON NORMALS: no acute distress GENERAL APPEARANCE: cooperative OTHER: Somnolent, wakes up to voice. HENMT: COMMON NORMALS: oropharynx normal Neck/C-Spine: COMMON NORMALS: no JVD Resp: COMMON NORMALS: normal respiratory effort AUSCULTATION: crackles (At bases) Cardio: COMMON NORMALS: no JVD, regular rhythm, S1 normal heart sound present, S2 normal heart sound present and No murmurs present (Cardio) RHYTHM: regular rhythm HEART SOUNDS: S1 normal heart sound present and S2 normal heart sound present GI: COMMON NORMALS: Normal to inspection, nondistended, normoactive bowel sounds present, Soft to palpation and non-tender PALPATION: Yes Soft to palpation Extremity: COMMON NORMALS: no joint enlargement GENERAL: Yes edema (Trace edema) Neuro: COMMON NORMALS: moves all extremities Skin: COMMON NORMALS: no rashes or lesions noted NARRATIVE SKIN EXAM: Chronic skin tears and ulcerations/abrasions on lower extremities. Right side mid villarreal with larger skin tear covered with what appears to be zinc oxide and small ABD pad. GENERAL SKIN EXAM: no rashes or lesions noted Urinary Catheter Management^: Harrison: Cath Placed During This Visit: yes Reason for Continuing Indwelling Catheter: Accurate Measurement of Urinary Output in Critically Ill Patients Urinary Catheter Date of Insertion: 09/03/20 Urinary Catheter Time of Insertion: 20:19 Data : 09/04/20 04:50 09/04/20 04:50 Micro: Microbiology 09/03/20 16:25 Blood Culture - Preliminary Blood NEGATIVE TO DATE 09/03/20 15:05 Blood Culture - Preliminary Blood NEGATIVE TO DATE A&P Assessment and plan (1) Acute respiratory failure with hypoxia: Improving. Wean down on oxygen through the day today. Currently appears down to room air. She was somewhat somnolent this morning. Wakes up to voice. Cooperative. Continue remdesivir, Decadron, monitor oxygenation. Continue antibiotics for pneumonia with ceftriaxone and azithromycin. Therapeutic Lovenox. Continue Lasix. With noted cardiomyopathy with suspicion of possible myocarditis, versus possible non-STEMI, with elevated troponin, with systolic and diastolic congestive heart failure, EF 25-30%, grade 2 diastolic dysfunction. She is doing well. May transfer out of viral ICU. Status: Acute (2) Pneumonia due to COVID-19 virus: CRP with some mild improvement. Continue treatment as above. Status: Acute (3) Myocarditis due to COVID-19 virus: Appears to have cardiomyopathy, possible myocarditis, versus non-STEMI, with elevated troponin. Denies any chest pain. Acute systolic and diastolic congestive heart failure (no prior studies.) Echocardiogram just came back, EF down to 25-30%. Grade 2 diastolic dysfunction. Septal hypokinesis. At this time as cannot exclude ischemia, although she is not particularly symptomatic, will continue aspirin, statin, beta-alex, therapeutic anticoagulation. We will give a loading dose of plavix, continue treatment for possible non-STEMI. I do not see LBBB on EKG. Consider cardiology consultation for additional assessment to exclude ischemic cardiomyopathy. Consider setting up LifeVest prior to discharge. Status: Acute (4) NSTEMI (non-ST elevated myocardial infarction): As above. Status: Acute (5) Diabetes mellitus: -Moderate dose sliding scale Status: Acute (6) Peripheral arterial disease: Status: Acute (7) Dementia: Status: Acute (8) Hypertension: Status: Acute (9) Septic encephalopathy: Status: Acute Additional A&P Information Lower extremity wounds: Continue wound care Deep tissue injury of heels: Chronic, bilaterally. Offload. Will need additional assessment once she is better. Attestations Medical Necessity Statement*: Continue admission for assessment management of COVID-19 infection, bacterial pneumonia, acute systolic and diastolic CHF, cardiomyopathy, possible COVID-19 myocarditis, possible non-STEMI. Coding Level of Care Code Acute Social Group Worker for g Fwd Diagnoses Acute respiratory failure with hypoxia J96.01 Pneumonia due to COVID-19 virus U07.1; J12.89 Myocarditis due to COVID-19 virus U07.1; I40.0 NSTEMI (non-ST elevated myocardial infarction) I21.4 Diabetes mellitus E11.9 Peripheral arterial disease I73.9 Dementia F03.90 Hypertension I10 Septic encephalopathy G93.41
[2020-09-04 22:10] LABS: Glucose Point of Care 430 mg/dL (70-110)
[2020-09-04] MEDS: clopidogrel 75 mg Tablet 300 MG PO (23:01)
[2020-09-04 23:53] LABS: Potassium 5.2 mmol/L (3.5-5.1)
[2020-09-05] VITALS (33 sets, daily range): BP systolic 106–148; BP diastolic 49–91; PULSE 68–99; RESP 17–33; TEMP 35.8–37.1; O2SAT 90–99
--- NOTE | 2020-09-05 00:15 | PC.NURSE ---
Addendum entered by Hailey Vera RN 09/05/20 00:33: Bed alarm has been set. Original Note: Patient was transferred to this floor from [facility] after report was received via phone. Patient yells ow that's hurting me while blood pressure is taking. Patient had small bowel movement and was turned to be cleaned with helped of MOLD INJECTOR and yelled very loudly screaming you're hurting me. Patient was repositioned into a comfortable position after being cleaned. Patient knows her name, that she is in the hospital but unsure of which hospital, and knows the year. She is not oriented to situation. Patient does not appear to be in pain now that she is not being turned and moved.
[2020-09-05] MEDS: aspirin 81 mg EC Tablet PO (00:20)
[2020-09-05] MEDS: cefTRIAXone 1,000 MG in sodium chloride 0.9% (plus) 50 ML 100 MG IV (00:20)
[2020-09-05] MEDS: carvedilol 3.125 mg Tablet PO ×2 (00:20→11:16)
[2020-09-05] MEDS: enoxaparin 100 mg/mL Syringe SUBCUT ×2 (00:20→11:13)
[2020-09-05] MEDS: azithromycin 500 MG in sodium chloride 0.9% 250 ML 250 MG IV (00:21)
--- NOTE | 2020-09-05 00:26 | PC.NURSE ---
0884 Report given to Hailey JOEL and patient transferred via bed to room 102. VSS
--- NOTE | 2020-09-05 05:39 | PC.NURSE ---
Stethoscope was placed on patient's chest to listen to lung sounds. Patient jumps and says ow that hurts so bad.
[2020-09-05 05:52] LABS: ABG PH Result 7.34 (7.35-7.45); Arterial Blood Gas Hematocrit 32.8 % (37-47); Base Excess ABG -5.7 mmol/L (-2.0-2.0); Blood Gas Allen Test Pos; Blood Gas Sample Site Radial, left; Blood Gas Sample Type Arterial; HCO3 ABG 19.4 mmol/L (22-26); PO2 ABG 66.5 mmHg (80.0-100.0)
[2020-09-05 06:09] LABS: Basophils # 0.1 10^3/uL (0.0-0.1); Basophils % 0.3 %; Hematocrit 31.2 % (37.0-47.0); Hemoglobin 9.2 g/dL (11.5-15.3); Lymphocytes # 1.1 10^3/uL (0.8-4.8); Mean Corpuscular HGB Conc 29.5 g/dL (30.0-36.0); Mean Corpuscular Hemoglobin 25.7 pg (28.0-34.0); Mean Corpuscular Volume 87.2 fL (81-99); Mean Platelet Volume 9.7 fL (7.4-10.4); Monocytes # 0.6 10^3/uL (0.2-0.9); Monocytes % 3.6 %; Neutrophils # 13.42 10^3/uL (1.8-7.7); Neutrophils % 87.9 %; Nucleated Red Blood Cells % 0 %; Platelet Count 421 10^3/cmm (130-400); Red Blood Count 3.58 10^6/uL (4.1-5.3); Red Cell Distribution Width 17.2 % (12.1-15.1); White Blood Count 15.3 10^3/uL (4.0-10.0)
[2020-09-05 06:32] LABS: Lactic Sepsis W/Reflex 1.5 mmol/L (0.5-2.2)
[2020-09-05 06:33] LABS: INR 1.37 (0.8-1.2)
[2020-09-05 06:38] LABS: Glucose Point of Care 495 mg/dL (70-110)
[2020-09-05 06:42] LABS: D Dimer 4.62 ug/mIFEU (0-0.59)
[2020-09-05 06:57] LABS: NT Pro B Type Natriuretic Pept 11829 pg/mL (0-450); Procalcitonin 0.88 ng/mL (0-0.5)
[2020-09-05 07:19] LABS: Alanine Aminotransferase 10 U/L (0-33); Albumin Level 2.2 g/dL (3.5-5.2); Alkaline Phosphatase 117 IU/L (35-105); Anion Gap 19.1 (5-19); Aspartate Amino Transferase 12 U/L (0-32); Blood Urea Nitrogen 70 mg/dL (8-23); C Reactive Protein 137.6 mg/L (0.0-4.9); Calcium 8.3 mg/dL (8.5-10.5); Carbon Dioxide 19 mmol/L (22-29); Chloride 101 mmol/L (98-107); Globulin 4.6 g/dL (1.3-4.6); Magnesium 1.8 mg/dL (1.7-2.3); Osmolality Calculated 321 mOsm/kg (285-295); Phosphorus 5.8 mg/dL (2.5-4.5); Potassium 5.1 mmol/L (3.5-5.1); Sodium 134 mmol/L (136-145); Total Bilirubin 0.2 mg/dL (0.15-1.2); Total Protein 6.8 g/dL (6.6-8.7)
[2020-09-05 07:41] LABS: Glucose 511 mg/dL (65-115)
[2020-09-05] MEDS: multivitamin therapeutic Tablet 1 TAB PO (08:37)
[2020-09-05] MEDS: pantoprazole DR 40 mg Tablet PO (08:37)
[2020-09-05] MEDS: sertraline 50 mg Tablet 25 MG PO (08:37)
[2020-09-05] MEDS: clopidogrel 75 mg Tablet PO (08:37)
[2020-09-05 08:43] LABS: Glucose Point of Care 478 mg/dL (70-110)
--- NOTE | 2020-09-05 08:59 | PC.CHAP ---
Pastoral Care Encounter/Spiritual Assessment Type of Contact [] Declined transmission assembler visit [] Patient/Family/Request visit [] Outpatient visit [] Follow-up visit [] Physician referral [] Code/Alert [] Routine visit [] Staff referral [] Actively dying [] Patient sleeping [] Family support [] [] Out of room [] Palliative care [] [] Receiving care in room [] Pre-surgical visit [] Trauma [] Long length of stay [] ICU visit [] Other: Relational/Emotional Strength [] Patient feels connected with others/family/visitors/staff [] Distress [] Loneliness/isolation [] Abandonment Spirituality of Patient [] Person of Elaina [] Attends Lutheran of their Elaina [] Believes in Prayer [] Reads Bible or Moravian materials [] There are Spiritual issues to be addressed Rail Engineer Interventions [] Prayer [] Active listening [] Non-anxious presence [] Spiritual/emotional support [] Crisis/trauma care [] Spiritual counseling [] Bereavement support [] Provided bereavement packet [] Provided Bible/devotional materials [] Provided toy/stuffed animal, coloring book to patient or family member [] Provided Communion [] Anointing/[place] [] Salvation [] Completed spiritual assessment [] Other: Impact on Illness or Injury [] Angry [] Fearful [] Anxious [] Often cries [] Exhaustion [] Unable to work [] Unable to attend mu-ism [] Unable to walk/stand [] Unable to read [] Unable to drive [] Unable to eat/drink [] Unable to sleep [] Unable to be with family [] Patient intubated [] Other: Summary Time spent with patient
[2020-09-05] MEDS: albuterol 8 gm MDI 1 PUFF INHALATION (09:08)
--- NOTE | 2020-09-05 10:04 | PM.PN ---
Subjective Subjective: Interval history: Hospital course, labs and vitals noted. Examination today morning patient is sitting comfortably in bed. Is able to have complete conversation with me. Denies any nausea, vomiting. States at baseline she is mobile through the wheelchair and walker. Denies of having any chest pain, headache, difficulty in breathing. States continues to have cough though without any expectoration. Vitals/I&O/Wt Last Vital Signs Temp 98.7 F 09/05/20 08:27 Pulse 84 09/05/20 09:09 Resp 18 09/05/20 09:09 BP 117/73 09/05/20 08:27 Pulse Ox 93 09/05/20 09:09 09/04/20 09/05/20 09/05/20 22:59 06:59 14:59 Intake Total 350 / 700 395.833 / 1095.833 460 / 460 Output Total 250 / 750 200 / 950 Balance 100 / -50 195.833 / 145.833 460 / 460 Weight last 48 hrs Weight 104.78 kg Physical Exam Narrative: EXAM NARRATIVE: General: No acute distress, AO x3, dehydrated HEENT: PERRLA, pupils bilaterally equal and reactive Chest: Normal vesicular breath sounds, bilateral occasional rhonchi all over the lung fischer, anterior more than posterior, equal good air entry bilaterally CVS: S1-S2 regular, soft pansystolic murmur at the apex 1/6, no tachycardia, no gallops, no rubs Abdomen: Soft, nontender, no organomegaly, bowel sounds present Neuro: No focal deficits, no facial deformity, AO x3, power 5/5 in all limbs Urinary Catheter Management^: Harrison: Cath Placed During This Visit: yes Reason for Continuing Indwelling Catheter: Accurate Measurement of Urinary Output in Critically Ill Patients Urinary Catheter Date of Insertion: 09/03/20 Urinary Catheter Time of Insertion: 20:19 Data : 09/05/20 05:58 09/05/20 17:12 Micro: Microbiology 09/03/20 16:25 Blood Culture - Preliminary Blood NEGATIVE TO DATE 09/03/20 15:05 Blood Culture - Preliminary Blood NEGATIVE TO DATE A&P Assessment and plan (1) Acute respiratory failure with hypoxia: Status: Acute (2) Systolic congestive heart failure: Status: Acute (3) Pneumonia due to COVID-19 virus: CRP with some mild improvement. Continue treatment as above. Status: Acute (4) NSTEMI (non-ST elevated myocardial infarction): As above. Status: Acute (5) Peripheral arterial disease: Status: Acute (6) Septic encephalopathy: Status: Acute (7) Hypertension: Status: Acute (8) Diabetes mellitus: -Moderate dose sliding scale Status: Acute (9) Dementia: Status: Acute Additional A&P Information Acute hypoxic respiratory failure: Resolved. Patient continues to do well on room air. Most likely secondary to acute exacerbation of congestive heart failure. Less likely secondary to COVID-19. Patient was COVID-19 positive more than 17 days ago. Patient has remained afebrile and is maintaining saturation at room air. Check rapid 19 antigen. If negative will remove isolation precautions. For now stop remdesivir and dexamethasone. Continue to monitor viral markers including CRP, LDH, proBNP, CRP, fibrinogen, ferritin, D-dimer. Continue with Advair, Spiriva for now. Vitamin C, zinc. Oxygen supplementation keeping saturation over 92%. For congestive heart failure: New diagnosis. Echocardiogram shows EF of 30% with grade 2 diastolic dysfunction with possible septal hypokinesis and grade 2 diastolic dysfunction with mild MR. Could be secondary to viral myocarditis though cannot rule out ischemic etiology. Patient has history of peripheral arterial disease. EKG reviewed. No LBBB. Continue with full dose Lovenox for now. Continue with aspirin, full dose statin. Check lipid panel, HbA1c Once patient is off isolation can plan for stress test. For now patient is euvolemic to dehydrated so we will stop IV Lasix for now. Strict input output charting. Daily weights. Elevated troponin: Baseline troponin I 41 which could be secondary to elevated creatinine. Most likely patient will require ischemic work-up as above. Leukocytosis: Most likely secondary to steroids. Patient does not have any active signs of infection at present. Stop azithromycin, vancomycin. Continue with ceftriaxone for now. Check MRSA swab. Blood cultures remain negative. Septic encephalopathy: Resolved. Hypertension: Goal blood pressure less than 140/90 mmHg. Continue with Coreg 3.125 mg twice daily. Continue to monitor blood pressures. JOSE E: Most likely secondary to overdiuresis along with CTA done on admission. Cannot rule out cardiorenal syndrome. Baseline creatinine 1.4-1.6. Medical reconciliation done for nephrotoxic drugs. Hold off on Lasix and lisinopril for now. Renal ultrasound, urine lites, urine creatinine. We will start gentle IV hydration with normal saline at 75 cc/h via monitor for fluid overload. Type 2 diabetes mellitus: Uncontrolled hyperglycemia: Check HbA1c. Insulin sliding scale at high dose protocol every 4 hours. Start patient on home dose Lantus 50 units twice daily. Check ketones, ABG. Anion gap closed for now. Lower extremity wounds: Continue wound care Deep tissue injury of heels: Chronic, bilaterally. Offload. Will need additional assessment once she is better. Full code. Carb consistent cardiac diet. Protonix for daily prophylaxis. Full dose Lovenox. Attestations Medical Necessity Statement*: Patient requires further hospitalization for management of her acute hypoxia because of congestive heart failure, acute kidney injury and uncontrolled hyperglycemia. Time Spent in Patient Care: Greater than 35 minutes (>than 50% of time spent in counselling and/or direct pt care on unit). Coding Level of Care Code Acute Transmission Operator for Dinora Nixon Diagnoses Acute respiratory failure with hypoxia J96.01 Systolic congestive heart failure I50.20 Pneumonia due to COVID-19 virus U07.1; J12.89 NSTEMI (non-ST elevated myocardial infarction) I21.4 Peripheral arterial disease I73.9 Septic encephalopathy G93.41 Hypertension I10 Diabetes mellitus E11.9 Dementia F03.90
[2020-09-05 10:07] LABS: Iron 37 ug/dL (37-145); Percent Saturation 21.6 % (20-50); Total Iron Binding Capacity 171 mcg/dl; Unsaturated Iron Binding 134 ug/dL (112-347)
[2020-09-05 10:15] LABS: Thyroid Stimulating Hormone 1.52 uIU/mL (0.27-4.20)
--- NOTE | 2020-09-05 11:00 | PC.NURSE ---
Addendum entered by Rama Zavala RN 09/05/20 11:02: called at [address] Lucia Original Note: Critical lab glucose [address] Lucia. orders received.
--- NOTE | 2020-09-05 11:03 | PC.NURSE ---
fingerstick glucose 560. Called to Dr Lucia
[2020-09-05] MEDS: sodium chloride 0.9% 1,000 ML 50 ML IV (11:16)
[2020-09-05] MEDS: zinc gluconate 50 mg Tablet PO (11:16)
[2020-09-05] MEDS: ascorbic acid 500 mg Tablet PO (11:16)
[2020-09-05 13:57] LABS: SARS Covid-2 Antigen Negative (Negative)
--- NOTE | 2020-09-05 14:19 | PC.NURSE ---
intermittant generalized pain to touch. No pain without touch.
[2020-09-05] MEDS: benzonatate 100 mg Capsule PO ×2 (16:29→20:48)
[2020-09-05 16:40] LABS: Glucose Point of Care 406 mg/dL (70-110)
[2020-09-05 17:01] LABS: Glucose Point of Care 560 mg/dL (70-110)
[2020-09-05 17:09] LABS: ABG PCO2 34.1 mmHg (35-45); ABG PH Result 7.34 (7.35-7.45); Alveolar-Arterial Oxygen Gradi 3.5 mmHg (5-10); Base Excess ABG -6.8 mmol/L (-2.0-2.0); Blood Gas Allen Test Pos; Blood Gas Operator Identificat ED; Blood Gas Sample Site Radial, left; Blood Gas Sample Type Arterial; Carboxyhemoglobin 0.9 %THgb (0.4-20.1); HCO3 ABG 18.3 mmol/L (22-26); HGB O2 Sat 93.7 % (95-100); Ionized Calcium Level - ABG 1.2 mmol/L (1.1-1.4); Methemoglobin 0.7 % (0.4-1.5); Oxygen Device ROOM AIR; Oxygen Saturation ABG 95.2; PO2 ABG 79.8 mmHg (80.0-100.0); Potassium Level - ABG 4.7 mmol/L (3.5-5.0); Total Hemoglobin 9.8 g/dL (12-16)
[2020-09-05 17:50] LABS: Anion Gap 17.7 (5-19); Blood Urea Nitrogen 77 mg/dL (8-23); Calcium 8.5 mg/dL (8.5-10.5); Carbon Dioxide 18 mmol/L (22-29); Chloride 101 mmol/L (98-107); Glucose 403 mg/dL (65-115); Osmolality Calculated 314 mOsm/kg (285-295); Potassium 4.7 mmol/L (3.5-5.1); Sodium 132 mmol/L (136-145)
[2020-09-05 18:26] LABS: Ketone (Acetest) Serum Negative (Negative)
[2020-09-05 18:45] LABS: Glucose Point of Care 424 mg/dL (70-110)
--- NOTE | 2020-09-05 19:10 | PC.NURSE ---
verbal order received from Dr Lucia for x1 IVP sodium Bicarb 50 meq, x1 0.9% NS 500 ml bolus, increase IV fluids 0.9% NS to 75 ml hr.
[2020-09-05] MEDS: sodium chloride 0.9% 500 ML 999 ML IV (20:09)
[2020-09-05] MEDS: sodium bicarbonate 8.4% 1 mEq/mL 50mL Syr 50 MEQ IVP (20:10)
[2020-09-05 20:40] LABS: Glucose Point of Care 394 mg/dL (70-110)
[2020-09-05] MEDS: atorvastatin 40 mg Tablet 80 MG PO (20:48)
--- NOTE | 2020-09-05 21:19 | PC.NURSE ---
Patient has no complaints at this time. Will monitor.
[2020-09-05 23:45] LABS: Glucose Point of Care 227 mg/dL (70-110)
[2020-09-06] VITALS (30 sets, daily range): BP systolic 106–126; BP diastolic 45–58; PULSE 64–88; RESP 15–51; TEMP 36.3–36.8; O2SAT 92–100
[2020-09-06] MEDS: cefTRIAXone 1,000 MG in sodium chloride 0.9% (plus) 50 ML 100 MG IV (00:05)
[2020-09-06] MEDS: aspirin 81 mg EC Tablet PO (00:05)
[2020-09-06] MEDS: carvedilol 3.125 mg Tablet PO ×2 (00:05→11:50)
[2020-09-06] MEDS: enoxaparin 100 mg/mL Syringe SUBCUT (00:05)
--- NOTE | 2020-09-06 00:12 | PC.NURSE ---
Unable to use previous UA sample that was sent to lab. New UA sent to lab. Patient label verified at bedside. Lab notified.
[2020-09-06 00:31] LABS: Potassium, Radom Urine 44 mmol/L; Urine Random Sodium 29 mmol/L
[2020-09-06 00:32] LABS: Urine Random Chloride 14 mmol/L
[2020-09-06] MEDS: acetaminophen 325 mg Tablet 650 MG PO (01:56)
--- NOTE | 2020-09-06 02:16 | PC.NURSE ---
Patient stated her bottom was hurting and that she needed to get out a bed for a minute. Attempt to get patient to chair with 2 assist. Patient is able to stand but is not able get to chair. PRN Tylenol given and patient sat on side of bed for short period of time and then was assisted back to a laying position.
[2020-09-06 03:27] LABS: Glucose Point of Care 71 mg/dL (70-110)
--- NOTE | 2020-09-06 03:30 | PC.NURSE ---
Patient's BG 71. 4 oz juice provided to patient. Will monitor.
--- NOTE | 2020-09-06 05:06 | PC.NURSE ---
Bed alarm is set.
[2020-09-06 05:33] LABS: Basophils % 0.2 %; Eosinophils # 0.1 10^3/uL (0.0-0.8); Eosinophils % 0.8 %; Hematocrit 26.7 % (37.0-47.0); Hemoglobin 8.1 g/dL (11.5-15.3); Lymphocytes # 2.1 10^3/uL (0.8-4.8); Lymphocytes % 16.2 %; Mean Corpuscular HGB Conc 30.3 g/dL (30.0-36.0); Mean Corpuscular Volume 85.9 fL (81-99); Mean Platelet Volume 9.4 fL (7.4-10.4); Monocytes # 0.8 10^3/uL (0.2-0.9); Monocytes % 6.2 %; Neutrophils # 9.98 10^3/uL (1.8-7.7); Neutrophils % 75.7 %; Nucleated Red Blood Cells % 0 %; Platelet Count 388 10^3/cmm (130-400); Red Blood Count 3.11 10^6/uL (4.1-5.3); Red Cell Distribution Width 17.3 % (12.1-15.1); White Blood Count 13.2 10^3/uL (4.0-10.0)
[2020-09-06 05:51] LABS: Fibrinogen 575 mg/dL (174-498)
[2020-09-06 05:54] LABS: D Dimer 2.88 ug/mIFEU (0-0.59)
--- NOTE | 2020-09-06 06:00 | XR_ITS ---
WS: [id number] XR chest 1V portable [id number] REASON FOR EXAM: covid FINDINGS: Compared to the examination of 09/03/2020 interstitial infiltrative and consolidative lung changes are seen in the lower lung fischer, most prominently on the left. There appears to have been some improve ment in the left lower lung. No new findings. XR/XR chest 1V portable [id number] IMPRESSION: Bilateral lower lung infiltrates and consolidation with some improvement on the left.
[2020-09-06 06:04] LABS: Alanine Aminotransferase 10 U/L (0-33); Alkaline Phosphatase 93 IU/L (35-105); Anion Gap 16.7 (5-19); Aspartate Amino Transferase 13 U/L (0-32); C Reactive Protein 74.5 mg/L (0.0-4.9); Calcium 8.1 mg/dL (8.5-10.5); Carbon Dioxide 21 mmol/L (22-29); Chloride 106 mmol/L (98-107); Globulin 4.1 g/dL (1.3-4.6); Glucose 67 mg/dL (65-115); Magnesium 1.7 mg/dL (1.7-2.3); Osmolality Calculated 311 mOsm/kg (285-295); Phosphorus 4.7 mg/dL (2.5-4.5); Potassium 4.7 mmol/L (3.5-5.1); Sodium 139 mmol/L (136-145); Total Bilirubin 0.2 mg/dL (0.15-1.2); Total Protein 6.1 g/dL (6.6-8.7)
[2020-09-06 06:10] LABS: Blood Urea Nitrogen 81 mg/dL (8-23)
--- NOTE | 2020-09-06 06:10 | PC.NURSE ---
Dr. Christensen notified of BUN of 81 and only 100 mL of urine output throughout steward/stewardess night.
[2020-09-06 06:50] LABS: Estmated Average Glucose 246; Hemoglobin A1C 10.2 % (4.0-6.0)
--- NOTE | 2020-09-06 07:00 | US_ITS ---
WS: [id number] RENAL ULTRASOUND REASON FOR EXAM: andrew TECHNIQUE: Grayscale and Doppler ultrasound examination of the kidneys. FINDINGS: Right kidney: Right kidney measures 8.4 cm x 4.7 cm x 4.8 cm. No mass, hydronephrosis, or calculus. Left kidney: Unable to visualize diagnostically. US/US renal BI* [id number] IMPRESSION: Limited examination demonstrating normal right kidney.
[2020-09-06 07:11] LABS: Creatine Phosphokinase 203 U/L (26-192); Ferritin 236 ng/mL (15-150); Lactate Dehydrogenase 218 U/L (135-214); NT Pro B Type Natriuretic Pept 8250 pg/mL (0-450)
--- NOTE | 2020-09-06 08:02 | PM.CONSULT ---
Providers/Reason For Consult Consulting Physican/Specialty*: mindy chaudhari md / telenephrology Reason for Consult*: JOSE E Attending Physician: Js Eng MD Primary Care Provider: Paul Warner Jr, MD History of Present Illness History of Present Illness Deisi Rivers is a 74 year old female dementia, IDDM w/ hg a1c of 10.2, EDE, asthma, PVD- s/p partial foot infection rt OM, CKD stage 3 - baeeline cr approx 1.3 mg/dl, combined systolic and diastolic CHF. EF approx 25- 30%Recent COVID- 19 in Jul 2020. she presented 09/03/2020 w/ SOB and confusion. she had a CTA on admission. started on lasix, remdesivir, steroids, lovenox, rocephin and azithromycin. Her cr on admission was 1.3 mg/dl. By 09-05-20, her cr avinash to 2.3 mg/dl. her lasix was stopped, fluids given, remdesivir and steroids were stopped. her abx were limited to ceftriaxone. Today cr continues to rise and pt is oliguric w/ stage 3 JOSE E and renal is called to consult. Renal us was performed w/ small 8.4 cm rt kidney. left kidney not visualized. Overnight pts glucose were very high, requiring extra insulin. Pt c/o sob, weak, confusion, edema, leg pain, dec uop. Review of Systems General: Reports: 10 or more systems reviewed and unremarkable except in HPI and below Narrative: weak, sob, blurry vision, high glucose, poor appetite, morris and poor uop, leg pain and edema Meds/Allergies Home Medications and Allergies Home Medications Medication Instructions Recorded Confirmed Last Taken Type memantine 28 mg capsule 28 mg PO DAILY 11/05/19 09/05/20 11/05/19 08:00 History sprinkle,extended release 24hr acetaminophen 325 mg tablet 650 mg PO Q4H PRN 12/10/19 09/05/20 Unknown History bisacodyl 10 mg rectal suppository 10 mg ND DAILY PRN 12/10/19 09/05/20 Unknown History sennosides 8.6 mg tablet 8.6 mg PO BID PRN 12/10/19 09/05/20 Unknown History fluticasone 250 mcg-salmeterol 50 1 inh INHALATION BID each 06/10/20 09/05/20 Unknown History mcg/dose blistr powdr for inhalation insulin aspart U-100 [Novolog 10 unit SUBCUT BID 09/05/20 09/05/20 Unknown History Flexpen U-100 Insulin] insulin aspart U-100 [Novolog 18 unit SUBCUT DAILY 09/05/20 09/05/20 Unknown History Flexpen U-100 Insulin] insulin glargine [Lantus U-100 50 unit SUBCUT BID 09/05/20 09/05/20 Unknown History Insulin] lisinopril 5 mg PO DAILY 09/05/20 09/05/20 Unknown History magnesium hydroxide [Milk of 30 ml PO DAILY PRN 09/05/20 09/05/20 Unknown History Magnesia] polyethylene glycol 3350 [Miralax] 17 g PO DAILY PRN 09/05/20 09/05/20 Unknown History risperidone [Risperdal] 0.5 mg PO BID 09/05/20 09/05/20 Unknown History rosuvastatin [Crestor] 20 mg PO DAILY 09/05/20 09/05/20 Unknown History sertraline 75 mg PO BEDTIME 09/05/20 09/05/20 Unknown History sodium phosphates [Enema 118 ml ND DAILY PRN 09/05/20 09/05/20 Unknown History Disposable] Allergies Allergy/AdvReac Type Severity Reaction Status Date / Time citalopram [From Celexa] Allergy ALGY-Hives Verified 06/10/20 11:19 meloxicam Allergy ALGY-Hives Verified 06/10/20 11:19 shellfish derived Allergy ALGY-Difficulty Verified 06/10/20 11:19 Swallowing Current Medications Current Medications Generic Name Dose Route Start Last Admin Trade Name Freq PRN Reason Stop Dose Admin Acetaminophen 650 mg 09/04/20 00:15 09/06/20 01:56 Acetaminophen 325 Mg Tablet PO 650 mg Q6H PRN Administration Mild/Mod Pain Or Temp >/= 101 Albuterol Sulfate 1 puff 09/04/20 15:17 09/05/20 09:08 Ventolin INHALATION 1 puff Q4H.RESPIRATORY PRN Administration SHORTNESS OF BREATH Ascorbic Acid 500 mg 09/05/20 09:45 09/05/20 11:16 Ascorbic Acid 500 Mg Tablet PO 500 mg DAILY ASTON Administration Aspirin 81 mg 09/04/20 00:15 09/06/20 00:05 Aspirin Ec PO 81 mg Q24H ASTON Administration Atorvastatin Calcium 80 mg 09/04/20 21:00 09/05/20 20:48 Lipitor PO 80 mg BEDTIME ASTON Administration Benzonatate 100 mg 09/05/20 15:00 09/05/20 20:48 Benzonatate 100 Mg Capsule PO 100 mg TID ASTON Administration Carvedilol 3.125 mg 09/04/20 00:30 09/06/20 00:05 Coreg PO 3.125 mg Q12H ASTON Administration Clopidogrel Bisulfate 75 mg 09/05/20 09:00 09/05/20 08:37 Plavix PO 75 mg DAILY [facility] Administration Enoxaparin Sodium 100 mg 09/04/20 00:15 09/06/20 00:05 Lovenox 1 mg/kg (100 mg) 100 mg SUBCUT Administration Q12H [facility] Ceftriaxone Sodium 1,000 mg/ 50 mls @ 100 mls/hr 09/04/20 00:15 09/06/20 00:44 Sodium Chloride IV Infused Q24H [facility] Infusion Protocol Sodium Chloride 1,000 mls @ 75 mls/hr 09/05/20 10:15 09/05/20 20:16 Sodium Chloride 0.9% IV 75 mls/hr .[id number] [facility] Infusion Insulin Aspart 0 unit 09/05/20 08:16 09/06/20 03:25 Insulin Aspart 100 Unit/1 Ml SUBCUT Not Given Q4H [facility] Protocol Insulin Detemir 50 unit 09/05/20 20:00 09/05/20 20:48 Insulin Detemir 100 Units/1 Ml SUBCUT 50 unit Q12H [facility] Administration Multivitamins Therapeutic 1 tab 09/04/20 09:00 09/05/20 08:37 Multivitamin Tab PO 1 tab DAILY [facility] Administration Non-Formulary Medication 28 mg 09/04/20 09:00 09/05/20 10:56 Memantine PO Not Given DAILY [facility] Pantoprazole Sodium 40 mg 09/05/20 09:00 09/05/20 08:37 Protonix PO 40 mg DAILY [facility] Administration Fluticasone/Salmeterol 1 puff 09/04/20 20:00 09/05/20 23:30 Advair Diskus 250-50 INHALATION 1 puff BID.RESPIRATORY ASTON Administration Sertraline HCl 25 mg 09/04/20 09:00 09/05/20 08:37 Zoloft PO 25 mg DAILY [facility] Administration Zinc Gluconate 50 mg 09/05/20 10:00 09/05/20 11:16 Zinc Gluconate 50 Mg Tablet PO 50 mg DAILY [facility] Administration PFSH Acute PFSH: Medical History (Updated 09/05/20 @ 18:36 by Js Eng MD) Anemia Stable Dehiscence of amputation stump Dementia Depression Stable. Reduce dose of Zoloft secondary to initiation of linezolid Diabetes mellitus Hyperlipidemia Hypertension Neuropathy Non-pressure chronic ulcer of left ankle with fat layer exposed Post-tonsillectomy pain PVD (peripheral vascular disease) Type 2 diabetes mellitus with diabetic polyneuropathy Stable Surgical History History of tonsillectomy Status post amputation of toe Family History Sister Diabetes Family/Other Diabetes Daughter Diabetes Psychiatric illness Son Psychiatric illness Denies family history of CAD (coronary artery disease) Clotting disorder Dementia Hyperlipidemia Chronic kidney disease (CKD) Suicide Anesthesia complication Bleeding disorder Family history of premature coronary artery disease Lung disease Cancer Hypertension Stroke Social History Smoking and tobacco status: never smoked Second hand smoke exposure: No Alcohol intake: never History of recent travel: No Vitals/I&O/Wt Last Vital Signs Temp 98.3 F 09/06/20 03:00 Pulse 67 09/06/20 03:00 Resp 25 H 09/06/20 03:00 BP 113/45 09/06/20 03:00 Pulse Ox 97 09/06/20 03:00 09/05/20 09/06/20 09/06/20 22:59 06:59 14:59 Intake Total 1210 / 2150 150 / 2300 Output Total 250 / 250 100 / 350 Balance 960 / 1900 50 / 1950 Physical Exam Narrative: EXAM NARRATIVE: elderly appearing. SOB in bed, sitting up, using NC O2 exam by RN as telehealth visit VS noted heent- nc/at, eomi, anicteric neck no jvp lubgs wheezes and crackles b/l heart reg, +MARCIO abd soft, nt, nd, +BS ext b/l edmea rt automatic lathe tender, rt foot bandaged poor DP and PT pulses neuro- a,a, o x 1-2 Urinary Catheter Management^: Morris: Cath Placed During This Visit: yes Reason for Continuing Indwelling Catheter: Accurate Measurement of Urinary Output in Critically Ill Patients Urinary Catheter Date of Insertion: 09/03/20 Urinary Catheter Time of Insertion: 20:19 A&P Additional A&P Information 74 yr old female 1. Combined systolic and diastolic CHF- would diurese as SOB -no jacqueline-i, ARB w/ JOSE E -elevated BNP 8250- improving from 65324 2. JOSE E- likely ATN- pt was on jacqueline-i, diuretics, NSAID, and phos based enema prior to admission. In ER she had a CTA w/ iodine, then ddiuresed. She is a poorly controlled DM and at high risk for KIN/ aTN -also risk of CRS, as new dec in systolic EF and diastolic CHF -renal us reviewed and rt kidney normal. unable to visualize left kidney -less likely AIN, no eosinophillia -ck 203- not cause of JOSE E -low ur na 29 -d/c lovenox- use heparin if needed =as sob- sned ANCA, anti GBM if possible 2b. met acidosis - from JOSE E/ infection and resp alkalosis from SOB 3. COVID-19- agree w/ stopping remdesivir as GFR <30 4. DM control- insulin. no metformin or SGLT-2 inhibitors w/ JOSE E 5. Q of pna- renal dose abx- check vanco level -leukocytosis improving -lower ext wound. Q of infection per medicine 6. BP stable 7. anemia- iron sat 21%, ferritin 236- low for covid-19. -if no infection, then give iron 8. normal tsh Consult Attestations Medical Necessity Statement: jose e, chf, sob, anemia Time Spent in Patient Care: Greater than 35 minutes Coding Level of Care Code Acute Farm Equipment Service Technician for Dinora Nixon
[2020-09-06] MEDS: ascorbic acid 500 mg Tablet PO (08:07)
[2020-09-06] MEDS: benzonatate 100 mg Capsule PO ×3 (08:07→21:18)
[2020-09-06] MEDS: pantoprazole DR 40 mg Tablet PO (08:07)
[2020-09-06] MEDS: multivitamin therapeutic Tablet 1 TAB PO (08:07)
[2020-09-06] MEDS: sertraline 50 mg Tablet 25 MG PO (08:08)
[2020-09-06] MEDS: clopidogrel 75 mg Tablet PO (08:08)
[2020-09-06 09:09] LABS: Glucose Point of Care 101 mg/dL (70-110)
--- NOTE | 2020-09-06 09:17 | DCPLANNER ---
IMM completed on 09/06/2020 @ 0900. Copy of rights given to pt.
[2020-09-06 09:34] LABS: Urine Creatinine 117 mg/dL (28-217)
--- NOTE | 2020-09-06 09:35 | PC.NURSE ---
Telephone orders per Dr lucia for Lasix 80mg ivp x1. decrease IV Fluids to 50 mls/hr. reviewed Dr Fernandez orders with Dr Lucia.
[2020-09-06] MEDS: FUROsemide 10 mg/mL SDV 10mL 80 MG IVP (09:48)
[2020-09-06] MEDS: sodium chloride 0.9% 1,000 ML 50 ML IV ×3 (09:54→14:30)
[2020-09-06] MEDS: albuterol 8 gm MDI 1 PUFF INHALATION ×2 (09:58→17:22)
[2020-09-06] MEDS: zinc gluconate 50 mg Tablet PO (10:32)
[2020-09-06 11:44] LABS: Glucose Point of Care 124 mg/dL (70-110)
--- NOTE | 2020-09-06 12:39 | PC.NURSE ---
pt moved to room 112-1.
--- NOTE | 2020-09-06 14:04 | PC.NURSE ---
Patient transferred to room 112-1 at 1200. House keeping threw away all iv fluids and tubing in old room 102.
--- NOTE | 2020-09-06 14:13 | PC.NURSE ---
PATIENT ROOM HAD TO BE CHANGED TO ACCOMMODATE ADMISSIONS, AFTER PATIENT ROOM WAS CHANGED, PATIENT IV FLUIDS WERE ACCIDENTALLY DISCARDED. DR. STEEN NOTIFIED AND OK'D ORDER TO START FLUIDS UNDER NEW ORDER NOW WITH A NEW BAG OF IV FLUID.
[2020-09-06 16:47] LABS: Glucose Point of Care 146 mg/dL (70-110)
[2020-09-06] MEDS: FUROsemide 10 mg/mL SDV 4mL 40 MG IVP (17:21)
--- NOTE | 2020-09-06 17:52 | P.PN_ITS ---
Subjective Subjective: Interval history: No acute events overnight. On examination patient sitting comfortably in chair. States her breathing is a lot better than yesterday. Denies any nausea, vomiting, headache. Is able to tolerate her diet well. States cough is improved as well. Documented urine output since last night only 100 cc. Patient has remained hemodynamically stable and afebrile. Labs and vitals appreciated. Vitals/I&O/Wt Last Vital Signs Temp 97.6 F 09/06/20 12:00 Pulse 78 09/06/20 17:26 Resp 18 09/06/20 17:26 BP 126/49 09/06/20 12:00 Pulse Ox 97 09/06/20 17:26 09/06/20 09/06/20 09/06/20 06:59 14:59 22:59 Intake Total 150 / 2300 570 / 570 Output Total 100 / 350 200 / 200 Balance 50 / 1950 370 / 370 Physical Exam Narrative: EXAM NARRATIVE: General: No acute distress, AO x3, HEENT: PERRLA, pupils bilaterally equal and reactive Chest: Normal vesicular breath sounds, bilateral occasional rhonchi all over the lung fischer, anterior more than posterior, equal good air entry bilaterally CVS: S1-S2 regular, soft pansystolic murmur at the apex 1/6, no tachycardia, no gallops, no rubs Abdomen: Soft, nontender, no organomegaly, bowel sounds present Neuro: No focal deficits, no facial deformity, AO x3, power 5/5 in all limbs Urinary Catheter Management^: Harrison: Cath Placed During This Visit: yes Reason for Continuing Indwelling Catheter: Accurate Measurement of Urinary Output in Critically Ill Patients Urinary Catheter Date of Insertion: 09/03/20 Urinary Catheter Time of Insertion: 20:19 Data : 09/06/20 04:55 09/06/20 04:55 Micro: Microbiology 09/05/20 11:30 MRSA Culture - Final Nose A&P Assessment and plan (1) Acute respiratory failure with hypoxia: Status: Acute (2) Systolic congestive heart failure: Status: Acute (3) Pneumonia due to COVID-19 virus: CRP with some mild improvement. Continue treatment as above. Status: Acute (4) NSTEMI (non-ST elevated myocardial infarction): As above. Status: Acute (5) Peripheral arterial disease: Status: Acute (6) Septic encephalopathy: Status: Acute (7) Hypertension: Status: Acute (8) Diabetes mellitus: -Moderate dose sliding scale Status: Acute (9) Dementia: Status: Acute Additional A&P Information Acute hypoxic respiratory failure: Resolved. Patient continues to do well on room air. Most likely secondary to acute exacerbation of congestive heart failure. Less likely secondary to COVID-19. Patient was COVID-19 positive more than 17 days ago. Patient has remained afebrile and is maintaining saturation at room air. Rapid antigen negative. Isolation precautions removed. Patient received 2-day course of remdesivir and dexamethasone with last dose on September 04. Continue to monitor viral markers including CRP, LDH, proBNP, CRP, fibrinogen, ferritin, D-dimer. Continue with Advair, Spiriva for now. Vitamin C, zinc. Oxygen supplementation keeping saturation over 92%. Eliquis 2.5 mg twice daily. Most likely patient will require it for next 2 weeks as she is recovering from COVID-19. D-dimer elevated but now trending down. For congestive heart failure: New diagnosis. Echocardiogram shows EF of 30% wi th grade 2 diastolic dysfunction with possible septal hypokinesis and grade 2 diastolic dysfunction with mild MR. Could be secondary to viral myocarditis though cannot rule out ischemic etiology. Patient has history of peripheral arterial disease. EKG reviewed. No LBBB. Continue with full dose Lovenox for now. Continue with aspirin, full dose statin. HbA1c results appreciated. Cardiac stress test tomorrow morning. N.p.o. after midnight. Strict input output charting. Daily weights. JOSE E: Most likely secondary to ATN versus KIN. Patient was aggressively diuresed since admission. Baseline creatinine 1.4-1.6. Creatinine continues to worsen. Results of urine lites and renal ultrasound appreciated. Will consult nephrology for further assistance. Medical reconciliation done for nephrotoxic drugs. Continue IV fluids at 50 cc/h. Will also give a diuretic challenge along with the fluids. 80 mg IV stat followed by 40 mg IV twice daily. Elevated troponin: Baseline troponin I 41 which could be secondary to elevated creatinine. Most likely patient will require ischemic work-up as above. Leukocytosis: Most likely secondary to steroids. Patient does not have any active signs of infection at present. Stop azithromycin, vancomycin. Continue with ceftriaxone for now. Check MRSA swab. Blood cultures remain negative. Septic encephalopathy: Resolved. Hypertension: Goal blood pressure less than 140/90 mmHg. Continue with Coreg 3.125 mg twice daily. Continue to monitor blood pressures. Type 2 diabetes mellitus: Better controlled now. Continue with Lantus at 40 units twice daily. Insulin sliding scale every 4 hours for now at moderate to high dose. Lower extremity wounds: Continue wound care Deep tissue injury of heels: Chronic, bilaterally. Offload. Will need additional assessment once she is better. Full code. Carb consistent cardiac diet. Protonix for daily prophylaxis. Eliquis 2.5 mg twice daily. Attestations Medical Necessity Statement*: Patient requires further hospitalization for management of work-up of congestive heart failure to rule out ischemic cardiomyopathy, worsening renal functions. Time Spent in Patient Care: Greater than 35 minutes (>than 50% of time spent in counselling and/or direct pt care on unit) . Coding Level of Care Code Acute Fish Net Stringer for Dinora Nixon Diagnoses Acute respiratory failure with hypoxia J96.01 Systolic congestive heart failure I50.20 Pneumonia due to COVID-19 virus U07.1; J12.89 NSTEMI (non-ST elevated myocardial infarction) I21.4 Peripheral arterial disease I73.9 Septic encephalopathy G93.41 Hypertension I10 Diabetes mellitus E11.9 Dementia F03.90
[2020-09-06 18:01] LABS: Hepatitis B Surface AB 6.5 (0-8.5); Hepatitis B Surface Antigen Non-Reactive (Nonreactive); Hepatitis C Virus Antibody Non-Reactive (Nonreactive)
[2020-09-06 18:13] LABS: Vancomycin Random < 4.0 ug/mL (20.0-40.0)
[2020-09-06 19:55] LABS: Glucose Point of Care 205 mg/dL (70-110)
[2020-09-06] MEDS: sertraline 50 mg Tablet 75 MG PO (21:18)
[2020-09-06] MEDS: atorvastatin 40 mg Tablet 80 MG PO (21:19)
--- NOTE | 2020-09-06 23:07 | PC.NURSE ---
START OF SHIFT SUMMARY: NURSING NOTE: PT UP IN CHAIR AT START OF SHIFT/TO BED AT 2300. ALERT AND ORIENTED X4. MOVES ALL EXTREMITIES AND FOLLOWS COMMANDS. ALL VS AND ASSESSMENTS CHARTED. DENIES NEED FOR PAIN MEDICATIONS AT THIS TIME. CURRENTLY RESTING WITH EYES CLOSED. NO DISTRESS NOTED .
[2020-09-07] VITALS (16 sets, daily range): BP systolic 122–166; BP diastolic 52–80; PULSE 73–86; RESP 14–25; TEMP 35.8–36.8; O2SAT 92–98
[2020-09-07] MEDS: cefTRIAXone 1,000 MG in sodium chloride 0.9% (plus) 50 ML 100 MG IV (02:43)
[2020-09-07] MEDS: carvedilol 3.125 mg Tablet PO ×2 (02:45→11:34)
[2020-09-07] MEDS: aspirin 81 mg EC Tablet PO (02:45)
[2020-09-07 03:13] LABS: Glucose Point of Care 102 mg/dL (70-110)
[2020-09-07 03:31] LABS: Glucose Point of Care 157 mg/dL (70-110)
[2020-09-07 05:39] LABS: Basophils % 0.2 %; Eosinophils # 0.1 10^3/uL (0.0-0.8); Eosinophils % 1.6 %; Hematocrit 25.6 % (37.0-47.0); Hemoglobin 7.8 g/dL (11.5-15.3); Lymphocytes # 1.8 10^3/uL (0.8-4.8); Lymphocytes % 20.1 %; Mean Corpuscular HGB Conc 30.5 g/dL (30.0-36.0); Mean Corpuscular Hemoglobin 25.9 pg (28.0-34.0); Mean Platelet Volume 9.7 fL (7.4-10.4); Monocytes # 0.5 10^3/uL (0.2-0.9); Monocytes % 6.1 %; Neutrophils # 6.22 10^3/uL (1.8-7.7); Neutrophils % 71.2 %; Nucleated Red Blood Cells % 0 %; Platelet Count 416 10^3/cmm (130-400); Red Blood Count 3.01 10^6/uL (4.1-5.3); Red Cell Distribution Width 17.3 % (12.1-15.1); White Blood Count 8.7 10^3/uL (4.0-10.0)
--- NOTE | 2020-09-07 06:00 | ECG_ITS ---
[facility] Test Date: 2020-09-07 Pat Name: Deisi Rivers Department: Room: 112 Gender: Female Hotel Baggage Handler: Noemí Phoenix : 1945 Requested By: Js Eng Order Number: [id number] Joe MD: Monica Sharma M.D. Interpretive Statements NAME OF STUDY: LEXISCAN SESTAMIBI STRESS TEST INDICATION: Chest Pain, PROCEDURE: At the baseline, the EKG revealed normal sinus rhythm with nonspecific T wave changes in the high lateral leads. Some nonspecific ST changes in the inferolateral leads. The baseline blood pressure was 125/52 mm Hg with a heart rate of 71 beats/min. Lexiscan was infused over a period of 20 seconds. A total of 0.4 milligrams of Lexiscan was infused. The stress phase was continued for a total of 5 minutes. Heart rate at the end of the stress phase was 77 with a blood pressure 148/64. The EKG at the peak infusion revealed no significant changes. Sestamibi was injected 20 seconds after the Lexiscan infusion. Blood pressure at the end of the recovery phase was 139/59 with a heart rate of 76 per minute. CONCLUSION: 1. No significant EKG changes with the LexiScan infusion 2. No LexiScan induced chest pain or cardiac arrhythmia 3. Normal blood pressure and heart rate response 4. Sestamibi/sestamibi perfusion scan pending; see separate report. Electronically Signed On 09-07-2020 19:06:33 OWNER CONSULTING ENGINEER by Monica Sharma M.D. [id number]
[2020-09-07 06:02] LABS: Calcium 7.7 mg/dL (8.5-10.5); Parathyroid Hormone 110.3 pg/mL (15-65)
[2020-09-07 06:11] LABS: Alanine Aminotransferase 16 U/L (0-33); Albumin Level 2.1 g/dL (3.5-5.2); Alkaline Phosphatase 95 IU/L (35-105); Aspartate Amino Transferase 26 U/L (0-32); Blood Urea Nitrogen 80 mg/dL (8-23); C Reactive Protein 56.4 mg/L (0.0-4.9); Calcium 7.6 mg/dL (8.5-10.5); Carbon Dioxide 21 mmol/L (22-29); Chloride 106 mmol/L (98-107); Creatine Phosphokinase 91 U/L (26-192); Ferritin 198 ng/mL (15-150); Globulin 3.1 g/dL (1.3-4.6); Glucose 67 mg/dL (65-115); Lactate Dehydrogenase 245 U/L (135-214); Magnesium 1.7 mg/dL (1.7-2.3); Osmolality Calculated 312 mOsm/kg (285-295); Phosphorus 5.9 mg/dL (2.5-4.5); Sodium 140 mmol/L (136-145); Total Bilirubin 0.2 mg/dL (0.15-1.2); Total Protein 5.2 g/dL (6.6-8.7)
[2020-09-07 06:15] LABS: Glucose Point of Care 72 mg/dL (70-110)
--- NOTE | 2020-09-07 06:27 | PC.NURSE ---
SHIFT SUMMARY: RESTING QUIETLY WITH EYES CLOSED AT PRESENT. NO DISTRESS NOTED. ALL VS AND ASSESSMENTS CHARTED.
--- NOTE | 2020-09-07 06:57 | P.PN_ITS ---
Subjective Subjective: Interval history: feels better. breathing improved. slept well. eating well. feet pain and edema. Medications: Reviewed: Yes Medication Review Details: Current Medications Acetaminophen (Acetaminophen 325 Mg Tablet) 650 mg PO Q6H PRN PRN Reason: Mild/Mod Pain Or Temp >/= 101 Last Admin: 09/06/20 01:56 Dose: 650 mg Documented by: Albuterol Sulfate (Ventolin) 1 puff INHALATION Q4H.RESPIRATORY PRN PRN Reason: SHORTNESS OF BREATH Last Admin: 09/06/20 17:22 Dose: 1 puff Documented by: Apixaban (Apixaban 5 Mg Tablet) 2.5 mg PO BID [facility] Ascorbic Acid (Ascorbic Acid 500 Mg Tablet) 500 mg PO DAILY [facility] Last Admin: 09/06/20 08:07 Dose: 500 mg Documented by: Aspirin (Aspirin Ec) 81 mg PO Q24H [facility] Last Admin: 09/07/20 02:45 Dose: 81 mg Documented by: Atorvastatin Calcium (Lipitor) 80 mg PO BEDTIME [facility] Last Admin: 09/06/20 21:19 Dose: 80 mg Documented by: Benzonatate (Benzonatate 100 Mg Capsule) 100 mg PO TID [facility] Last Admin: 09/06/20 21:18 Dose: 100 mg Documented by: Carvedilol (Coreg) 3.125 mg PO Q12H [facility] Last Admin: 09/07/20 02:45 Dose: 3.125 mg Documented by: Clopidogrel Bisulfate (Plavix) 75 mg PO DAILY [facility] Last Admin: 09/06/20 08:08 Dose: 75 mg Documented by: Dextrose (D50w) 25 ml IVP ONCE PRN; Protocol PRN Reason: hypoglycemia protocol Dextrose (D50w) 50 ml IVP PRN PRN; Protocol PRN Reason: hypoglycemia protocol Furosemide (Furosemide 10 Mg/Ml Sdv 4ml) 40 mg IVP Q12H [facility] Last Admin: 09/06/20 17:21 Dose: 40 mg Documented by: Glucagon (Glucagen) 1 mg IM ONCE PRN; Protocol PRN Reason: Adult Acute Hypoglycemia Prot. Ceftriaxone Sodium 1,000 mg/ (Sodium Chloride) 50 mls @ 100 mls/hr IV Q24H [facility]; Protocol Last Infusion: 09/07/20 03:22 Dose: Infused Documented by: Dextrose (D5w) 500 mls @ 100 mls/hr IV ONCE PRN; Protocol PRN Reason: Adult Acute Hypoglycemia Prot Insulin Aspart (Insulin Aspart 100 Unit/1 Ml) 0 unit SUBCUT Q4H [facility]; Protocol Last Admin: 09/07/20 03:13 Dose: Not Given Documented by: Insulin Detemir (Insulin Detemir 100 Units/1 Ml) 40 unit SUBCUT Q12H [facility] Last Admin: 09/06/20 21:17 Dose: 40 unit Documented by: Multivitamins Therapeutic (Multivitamin Tab) 1 tab PO DAILY [facility] Last Admin: 09/06/20 08:07 Dose: 1 tab Documented by: Non-Formulary Medication (Memantine) 28 mg PO DAILY [facility] Last Admin: 09/06/20 09:18 Dose: Not Given Documented by: Ondansetron HCl (Zofran) 4 mg IVP Q6H PRN PRN Reason: NAUSEA AND VOMITING Pantoprazole Sodium (Protonix) 40 mg PO DAILY [facility] Last Admin: 09/06/20 08:07 Dose: 40 mg Documented by: Risperidone (Risperidone 1 Mg Tablet) 0.5 mg PO BID [facility] Fluticasone/Salmeterol (Advair Diskus 250-50) 1 puff INHALATION BID.RESPIRATORY [facility] Last Admin: 09/06/20 21:45 Dose: 1 puff Documented by: Sertraline HCl (Zoloft) 25 mg PO DAILY [facility] Last Admin: 09/06/20 08:08 Dose: 25 mg Documented by: Sertraline HCl (Sertraline 50 Mg Tablet) 75 mg PO BEDTIME [facility] Last Admin: 09/06/20 21:18 Dose: 75 mg Documented by: Tiotropium [place] (Tiotropium 18 Mcg Mdi) 18 mcg INHALATION DAILY.RESPIRATORY [facility] Zinc Gluconate (Zinc Gluconate 50 Mg Tablet) 50 mg PO DAILY [facility] Last Admin: 09/06/20 10:32 Dose: 50 mg Documented by: Vitals/I&O/Wt Last Vital Signs Temp 97.4 F L 09/07/20 02:00 Pulse 77 09/07/20 06:00 Resp 24 H 09/07/20 06:00 BP 122/58 09/07/20 06:00 Pulse Ox 96 09/06/20 21:45 09/06/20 09/06/20 09/07/20 14:59 22:59 06:59 Intake Total 570 / 570 520 / 1090 50 / 1140 Output Total 200 / 200 850 / 1050 0 / 3100 Balance 370 / 370 -330 / 40 -1999 / Physical Exam Narrative: EXAM NARRATIVE: elderly appearing lady, comfortable in bed, using NC O2 exam by RN as telehealth visit VS noted heent- nc/at, eomi, anicteric neck no jvp lungs0 dec wheezes and crackles b/l heart reg, +MARCIO abd soft, nt, nd, +BS ext b/l edema improved rt swage tender, rt foot bandaged poor DP and PT pulses neuro- a,a, o x 1-2 Urinary Catheter Management^: Harrison: Cath Placed During This Visit: yes Reason for Continuing Indwelling Catheter: Accurate Measurement of Urinary Output in Critically Ill Patients Urinary Catheter Date of Insertion: 09/03/20 Urinary Catheter Time of Insertion: 20:19 Data : 09/07/20 04:16 09/07/20 04:16 Micro: Microbiology 09/05/20 11:30 MRSA Culture - Final Nose A&P Additional A&P Information 74 yr old female 1. Combined systolic and diastolic CHF - good diuresis w/ lasix. can dec dose -no jacqueline-i, ARB w/ JOSE E - monitor uop, weights -if k improves, start spironolactone 2. JOSE E- likely ATN- pt was on jacqueline-i, diuretics, NSAID, and phos based enema prior to admission. In ER she had a CTA w/ iodine, then ddiuresed. She is a poorly controlled DM and at high risk for KIN/ aTN -also risk of CRS, as new dec in systolic EF and diastolic CHF -renal us reviewed and rt kidney normal. unable to visualize left kidney -less likely AIN, no eosinophillia -ck normal- not cause of JOSE E -low ur na 29 -d/c lovenox- use heparin if needed - f/u ANCA, anti GBM if possible -low k diet -cr stabilizing. hopefully should improve soon and maybe will have a post ATN diuresis 2b. met acidosis - from JOSE E/ infection and resp alkalosis from SOB 3. COVID-19- agree w/ stopping remdesivir as GFR <30 4. DM control- insulin. no metformin or SGLT-2 inhibitors w/ JOSE E 5. Q of pna- renal dose abx- check vanco level -leukocytosis improving -lower ext wound. Q of infection per medicine 6. BP stable 7. anemia- iron sat 21%, ferritin 236- low for covid-19. -start iv iron 8. normal tsh 9. phos binder- sevelamer pth 110- monitor in 2 months Attestations Medical Necessity Statement*: chf , jose e, anemia, pna Time Spent in Patient Care: 16 - 35 minutes Coding Level of Care Code Acute Courier Driver for Dinora Nixon
[2020-09-07] MEDS: regadenoson 0.4 Mg/5 ml Syringe IVP (08:19)
--- NOTE | 2020-09-07 09:07 | PC.NURSE ---
pt in Nuclear Med for stress test. remains npo
[2020-09-07 09:27] LABS: Glucose Point of Care 74 mg/dL (70-110)
[2020-09-07 09:52] LABS: PROTEIN, TOTAL 5.6 g/dL (6.1-8.1)
[2020-09-07] MEDS: zinc gluconate 50 mg Tablet PO (10:39)
[2020-09-07] MEDS: ascorbic acid 500 mg Tablet PO (10:40)
[2020-09-07] MEDS: sertraline 50 mg Tablet 25 MG PO (10:40)
[2020-09-07] MEDS: benzonatate 100 mg Capsule PO ×3 (10:41→20:26)
[2020-09-07] MEDS: sevelamer 800 mg Tablet PO ×3 (10:41→20:21)
[2020-09-07] MEDS: apixaban 5 mg Tablet 2.5 MG PO ×2 (10:42→18:50)
[2020-09-07] MEDS: pantoprazole DR 40 mg Tablet PO (10:42)
[2020-09-07] MEDS: multivitamin therapeutic Tablet 1 TAB PO (10:42)
[2020-09-07] MEDS: FUROsemide 10 mg/mL SDV 4mL 30 MG IVP ×2 (10:43→20:21)
[2020-09-07] MEDS: clopidogrel 75 mg Tablet PO (10:45)
[2020-09-07] MEDS: risperiDONE 1 mg Tablet 0.5 MG PO ×2 (10:51→18:50)
[2020-09-07] MEDS: ferric gluconate 125 MG in sodium chloride 0.9% (100 ml) 100 ML 110 MG IV (11:32)
[2020-09-07 11:39] LABS: Glucose Point of Care 148 mg/dL (70-110)
[2020-09-07] MEDS: albuterol 8 gm MDI 1 PUFF INHALATION (14:38)
[2020-09-07 16:11] LABS: Glucose Point of Care 259 mg/dL (70-110)
[2020-09-07] MEDS: sodium chloride 0.9% 1,000 ML 50 ML IV (16:52)
--- NOTE | 2020-09-07 17:57 | NMCV_ITS ---
NM evaristo perf SPECT r/s* [id number] Deisi Rivers Age: 74 Gender: F : 1945 Exam Date: 09/07/2020 07:21 Ordering Phys: Js Eng MD Technologist: CHAD [place] Exam Location: [facility] Indications: CP STRESS TEST Please see separate stress test report in [facility] for full findings IMAGE PROTOCOL Rest/Stress 1 Lexiscan Day Radiopharmaceutical Dose (mCi) Administration Site Administered by Rest: Tc-99m 11.0 IV Felicity Geremias, APPLICATIONS ENGINEERING MANAGER Sestamibi Stress:Tc-99m 31.3 IV Felicity Geremias, APPLICATIONS ENGINEERING MANAGER Sestamibi Rest: 07-Sep-2020 60 Discovery 630 Stress: 07-Sep-2020 45 Discovery 630 0.4mg Lexiscan. Supine position only as patient was unable to lay prone. SPECT RESULTS Technical Quality: Good Raw Data Analysis: Breast attenuation Image Corrections: No attenuation or motion correction applied Summed Stress Score: 16 Summed Rest Score: 21 Summed Difference Score: 0 PERFUSION FINDINGS Moderate to large area of moderately decreased tracer uptake was noted in the basal ,mid and apical anterior, basal and mid anterolateral, basal and mid inferolateral, mid anteroseptal and apical segments. No significant reversibility was noted in these regions. FUNCTIONAL RESULTS (calculated via Gated SPECT) Stress Image LV EF (%): 39 Stress EDV (mL):144 TID: 1.04 Stress ESV (mL):88 FUNCTIONAL FINDINGS: Segmental wall motion analysis revealed diffuse hypokinesia of the septum, anterior wall and apical segments. IMPRESSIONS 1. Myocardial perfusion imaging revealing a moderate to large areas of persistent decreased tracer uptake in the anterior, anterolateral, inferolateral, mid anteroseptal and apical segments, suggestive of myocardial scarring in the distribution of the left anterior descending artery/circumflex artery. 2. Diminished ejection fraction 39%. 3. LV wall motion normalities as mentioned above. 4. Dilated LV cavity with an end-systolic volume of 88 mL No similar previous studies are available for comparison Dr Monica Sharma MD FACC (Electronically Signed) Final Date: 07 September 2020 12:39 S
--- NOTE | 2020-09-07 18:05 | P.PN_ITS ---
Subjective Subjective: Interval history: No acute events overnight. On examination patient sitting comfortably in chair. She was seen post stress test. Has had good urine output since last night. Denies any nausea, vomiting, headache. Saturating well on room air. Eating well. Vitals/I&O/Wt Last Vital Signs Temp 96.4 F L 09/07/20 15:27 Pulse 76 09/07/20 15:27 Resp 20 H 09/07/20 15:27 BP 153/52 09/07/20 15:27 Pulse Ox 94 09/07/20 15:27 09/07/20 09/07/20 09/07/20 06:59 14:59 22:59 Intake Total 50 / 1140 240 / 240 350 / 590 Output Total 2050 / 3100 1600 / 1600 400 / 2000 Balance -1999 / -1960 -1360 / -1360 -50 / -1410 Physical Exam Narrative: EXAM NARRATIVE: General: No acute distress, AO x3, HEENT: PERRLA, pupils bilaterally equal and reactive Chest: Normal vesicular breath sounds, bilateral occasional rhonchi all over the lung fischer, anterior more than posterior, equal good air entry bilaterally CVS: S1-S2 regular, soft pansystolic murmur at the apex 1/6, no tachycardia, no gallops, no rubs Abdomen: Soft, nontender, no organomegaly, bowel sounds present Neuro: No focal deficits, no facial deformity, AO x3, power 5/5 in all limbs Urinary Catheter Management^: Harrison: Cath Placed During This Visit: yes Reason for Continuing Indwelling Catheter: Accurate Measurement of Urinary Output in Critically Ill Patients Urinary Catheter Date of Insertion: 09/03/20 Urinary Catheter Time of Insertion: 20:19 Data : 09/07/20 04:16 09/07/20 04:16 A&P Assessment and plan (1) Acute respiratory failure with hypoxia: Status: Acute (2) Systolic congestive heart failure: Status: Acute (3) Pneumonia due to COVID-19 virus: CRP with some mild improvement. Continue treatment as above. Status: Acute (4) NSTEMI (non-ST elevated myocardial infarction): As above. Status: Acute (5) Peripheral arterial disease: Status: Acute (6) Septic encephalopathy: Status: Acute (7) Hypertension: Status: Acute (8) Diabetes mellitus: -Moderate dose sliding scale Status: Acute (9) Dementia: Status: Acute Additional A&P Information Acute hypoxic respiratory failure: Resolved. Patient continues to do well on room air. Most likely secondary to acute exacerbation of congestive heart failure. Less likely secondary to COVID-19. Patient was COVID-19 positive more than 17 days ago. Patient has remained afebrile and is maintaining saturation at room air. Rapid antigen negative. Isolation precautions removed. Patient received 2-day course of remdesivir and dexamethasone with last dose on September 04. Continue to monitor viral markers including CRP, LDH, proBNP, CRP, fibrinogen, f erritin, D-dimer. Continue with Advair, Spiriva for now. Vitamin C, zinc. Oxygen supplementation keeping saturation over 92%. Eliquis 2.5 mg twice daily. Most likely patient will require it for next 2 weeks as she is recovering from COVID-19. D-dimer elevated but now trending down. For congestive heart failure: New diagnosis. Echocardiogram shows EF of 30% with grade 2 diastolic dysfunction with possible septal hypokinesis and grade 2 diastolic dysfunction with mild MR. Could be secondary to viral myocarditis though cannot rule out ischemic etiology. Patient has history of peripheral arterial disease. EKG reviewed. No LBBB. Continue with Eliquis, aspirin, statin. HbA1c results appreciated. Stress test done and results awaited. Strict input output charting. Daily weights. JOSE E: Most likely secondary to ATN versus KIN. Patient was aggressively diuresed since admission. Baseline creatinine 1.4-1.6. Creatinine stable today. Nephrology recommendations appreciated. Medical reconciliation done for nephrotoxic drugs. Continue with IV fluids at 50 cc/h and continue to prerna them with Lasix 30 mg IV twice daily. Patient is euvolemic. Elevated troponin: Baseline troponin I 41 which could be secondary to elevated creatinine. Most likely patient will require ischemic work-up as above. Leukocytosis: Most likely secondary to steroids. Patient does not have any active signs of infection at present. Stop azithromycin, vancomycin. Continue with ceftriaxone for now. Check MRSA swab. Blood cultures remain negative. Septic encephalopathy: Resolved. Hypertension: Goal blood pressure less than 140/90 mmHg. Continue with Coreg 3.125 mg twice daily. Continue to monitor blood pressures. Type 2 diabetes mellitus: Better controlled now. Continue with Lantus at 40 units twice daily. Insulin sliding scale every 4 hours for now at moderate to high dose. Lower extremity wounds: Continue wound care Deep tissue injury of heels: Chronic, bilaterally. Offload. Will need addit ional assessment once she is better. Full code. Carb consistent cardiac diet. Protonix for daily prophylaxis. Eliquis 2.5 mg twice daily. Plan: Patient underwent cardiac stress test today. Will await the results of further work-up for new congestive heart failure. Patient's JOSE E most likely secondary to KIN has remained stable. Will continue with IV fluids along with Lasix at 30 mg twice daily. Attestations Medical Necessity Statement*: Requires further hospitalization for evaluation of new congestive heart failure, JOSE E. Time Spent in Patient Care: Greater than 35 minutes (>than 50% of time spent in counselling and/or direct pt care on unit) . Coding Level of Care Code Acute Application Development Consultant for Dinora Nixon Diagnoses Acute respiratory failure with hypoxia J96.01 Systolic congestive heart failure I50.20 Pneumonia due to COVID-19 virus U07.1; J12.89 NSTEMI (non-ST elevated myocardial infarction) I21.4 Peripheral arterial disease I73.9 Septic encephalopathy G93.41 Hypertension I10 Diabetes mellitus E11.9 Dementia F03.90
[2020-09-07 20:11] LABS: Glucose Point of Care 299 mg/dL (70-110)
[2020-09-07] MEDS: atorvastatin 40 mg Tablet 80 MG PO (20:25)
[2020-09-07] MEDS: sertraline 50 mg Tablet 75 MG PO (20:26)
[2020-09-07 23:10] LABS: Fibrinogen 590 mg/dL (174-498)
[2020-09-07 23:10] LABS: Glucose Point of Care 273 mg/dL (70-110)
[2020-09-07 23:14] LABS: D Dimer 1.76 ug/mIFEU (0-0.59)
[2020-09-08] VITALS (10 sets, daily range): BP systolic 139–197; BP diastolic 48–80; PULSE 74–104; RESP 12–24; TEMP 36–36.8; O2SAT 96–98
[2020-09-08] MEDS: carvedilol 3.125 mg Tablet PO ×3 (00:27→23:21)
[2020-09-08] MEDS: aspirin 81 mg EC Tablet PO ×2 (00:27→23:20)
[2020-09-08] MEDS: cefTRIAXone 1,000 MG in sodium chloride 0.9% (plus) 50 ML 100 MG IV ×2 (00:28→23:22)
--- NOTE | 2020-09-08 02:35 | PC.NURSE ---
NURSE NOTE: PT UP IN CHAIR UNTIL 2300 THIS SHIFT. RESTING IN BED WITH EYES CLOSED AT PRESENT. ALL VS AND ASSESSMENTS CHARTED. NO NEW ORDERS AND NO DISTRESS NOTED AT PRESENT. WILL CONTINUE TO MONITOR.
[2020-09-08 03:55] LABS: Glucose Point of Care 145 mg/dL (70-110)
[2020-09-08 05:27] LABS: Basophils % 0.2 %; Eosinophils # 0.1 10^3/uL (0.0-0.8); Eosinophils % 1.5 %; Hematocrit 28.8 % (37.0-47.0); Hemoglobin 8.7 g/dL (11.5-15.3); Lymphocytes # 1.6 10^3/uL (0.8-4.8); Lymphocytes % 17.9 %; Mean Corpuscular HGB Conc 30.2 g/dL (30.0-36.0); Mean Corpuscular Hemoglobin 26.3 pg (28.0-34.0); Mean Platelet Volume 9.3 fL (7.4-10.4); Monocytes # 0.7 10^3/uL (0.2-0.9); Monocytes % 7.4 %; Neutrophils % 71.5 %; Nucleated Red Blood Cells % 0 %; Platelet Count 441 10^3/cmm (130-400); Red Blood Count 3.31 10^6/uL (4.1-5.3); Red Cell Distribution Width 17.2 % (12.1-15.1); White Blood Count 9.1 10^3/uL (4.0-10.0)
--- NOTE | 2020-09-08 06:00 | XR_ITS ---
WS: [id number] Portable AP upright chest, 09/08/2020 Clinical Data: covid Comparison: Portable chest, 09/06/2020. Findings: No nodules, masses or effusions are seen. The heart is normal. The pulmonary vascularity is not increased. No pneumonia or pneumothorax is seen. The left lower lobe opacity is clearing. There is also a decrease in the right basilar opacity. Monitor leads are on the chest wall. XR/XR chest 1V portable [id number] Impression: Improvement in bilateral lung opacities.
[2020-09-08 06:04] LABS: Fibrinogen 701 mg/dL (174-498)
[2020-09-08 06:09] LABS: D Dimer 1.54 ug/mIFEU (0-0.59)
[2020-09-08 06:38] LABS: Alanine Aminotransferase 19 U/L (0-33); Albumin Level 2.6 g/dL (3.5-5.2); Alkaline Phosphatase 102 IU/L (35-105); Anion Gap 16.8 (5-19); Aspartate Amino Transferase 23 U/L (0-32); Blood Urea Nitrogen 79 mg/dL (8-23); C Reactive Protein 42.8 mg/L (0.0-4.9); Calcium 8.4 mg/dL (8.5-10.5); Carbon Dioxide 22 mmol/L (22-29); Chloride 107 mmol/L (98-107); Creatine Phosphokinase 51 U/L (26-192); Ferritin 296 ng/mL (15-150); Globulin 3.9 g/dL (1.3-4.6); Glucose 126 mg/dL (65-115); Lactate Dehydrogenase 285 U/L (135-214); Magnesium 1.7 mg/dL (1.7-2.3); Osmolality Calculated 317 mOsm/kg (285-295); Potassium 4.8 mmol/L (3.5-5.1); Sodium 141 mmol/L (136-145); Total Bilirubin 0.2 mg/dL (0.15-1.2); Total Protein 6.5 g/dL (6.6-8.7)
--- NOTE | 2020-09-08 07:00 | PM.PN ---
Subjective Subjective: Interval history: feels better. dec edema and wheezing. still weak. requires assistance to get up. Medications: Reviewed: Yes Medication Review Details: Current Medications Acetaminophen (Acetaminophen 325 Mg Tablet) 650 mg PO Q6H PRN PRN Reason: Mild/Mod Pain Or Temp >/= 101 Last Admin: 09/06/20 01:56 Dose: 650 mg Documented by: Albuterol Sulfate (Ventolin) 1 puff INHALATION Q4H.RESPIRATORY PRN PRN Reason: SHORTNESS OF BREATH Last Admin: 09/07/20 14:38 Dose: 1 puff Documented by: Apixaban (Apixaban 5 Mg Tablet) 2.5 mg PO BID [facility] Last Admin: 09/07/20 18:50 Dose: 2.5 mg Documented by: Ascorbic Acid (Ascorbic Acid 500 Mg Tablet) 500 mg PO DAILY [facility] Last Admin: 09/07/20 10:40 Dose: 500 mg Documented by: Aspirin (Aspirin Ec) 81 mg PO Q24H [facility] Last Admin: 09/08/20 00:27 Dose: 81 mg Documented by: Atorvastatin Calcium (Lipitor) 80 mg PO BEDTIME [facility] Last Admin: 09/07/20 20:25 Dose: 80 mg Documented by: Benzonatate (Benzonatate 100 Mg Capsule) 100 mg PO TID [facility] Last Admin: 09/07/20 20:26 Dose: 100 mg Documented by: Carvedilol (Coreg) 3.125 mg PO Q12H [facility] Last Admin: 09/08/20 00:27 Dose: 3.125 mg Documented by: Clopidogrel Bisulfate (Plavix) 75 mg PO DAILY [facility] Last Admin: 09/07/20 10:45 Dose: 75 mg Documented by: Dextrose (D50w) 25 ml IVP ONCE PRN; Protocol PRN Reason: hypoglycemia protocol Dextrose (D50w) 50 ml IVP PRN PRN; Protocol PRN Reason: hypoglycemia protocol Furosemide (Furosemide 10 Mg/Ml Sdv 4ml) 30 mg IVP Q12H [facility] Last Admin: 09/07/20 20:21 Dose: 30 mg Documented by: Glucagon (Glucagen) 1 mg IM ONCE PRN; Protocol PRN Reason: Adult Acute Hypoglycemia Prot. Ceftriaxone Sodium 1,000 mg/ (Sodium Chloride) 50 mls @ 100 mls/hr IV Q24H [facility]; Protocol Last Infusion: 09/08/20 01:00 Dose: Infused Documented by: Dextrose (D5w) 500 mls @ 100 mls/hr IV ONCE PRN; Protocol PRN Reason: Adult Acute Hypoglycemia Prot Ferric Sodium Gluconate 125 mg (/ Sodium Chloride) 110 mls @ 110 mls/hr IV Q24H [facility] Stop: 09/14/20 09:59 Last Infusion: 09/07/20 16:54 Dose: Infused Documented by: Sodium Chloride (Sodium Chloride 0.9%) 1,000 mls @ 50 mls/hr IV .Q20H [facility] Last Admin: 09/07/20 16:52 Dose: 50 mls/hr Documented by: Insulin Aspart (Insulin Aspart 100 Unit/1 Ml) 0 unit SUBCUT Q4H [facility]; Protocol Last Admin: 09/08/20 04:02 Dose: 6 unit Documented by: Insulin Detemir (Insulin Detemir 100 Units/1 Ml) 40 unit SUBCUT Q12H [facility] Last Admin: 09/07/20 20:25 Dose: 40 unit Documented by: Multivitamins Therapeutic (Multivitamin Tab) 1 tab PO DAILY [facility] Last Admin: 09/07/20 10:42 Dose: 1 tab Documented by: Non-Formulary Medication (Memantine) 28 mg PO DAILY [facility] Last Admin: 09/07/20 11:04 Dose: Not Given Documented by: Ondansetron HCl (Zofran) 4 mg IVP Q6H PRN PRN Reason: NAUSEA AND VOMITING Ondansetron HCl (Ondansetron 2 Mg/Ml Sdv 2 Ml) 4 mg IVP Q2M PRN PRN Reason: NAUSEA Pantoprazole Sodium (Protonix) 40 mg PO DAILY [facility] Last Admin: 09/07/20 10:42 Dose: 40 mg Documented by: Risperidone (Risperidone 1 Mg Tablet) 0.5 mg PO BID [facility] Last Admin: 09/07/20 18:50 Dose: 0.5 mg Documented by: Fluticasone/Salmeterol (Advair Diskus 250-50) 1 puff INHALATION BID.RESPIRATORY [facility] Last Admin: 09/07/20 22:12 Dose: 1 puff Documented by: Sertraline HCl (Zoloft) 25 mg PO DAILY [facility] Last Admin: 09/07/20 10:40 Dose: 25 mg Documented by: Sertraline HCl (Sertraline 50 Mg Tablet) 75 mg PO BEDTIME [facility] Last Admin: 09/07/20 20:26 Dose: 75 mg Documented by: Sevelamer Carbonate (Sevelamer 800 Mg Tablet) 800 mg PO TID [facility] Last Admin: 09/07/20 20:21 Dose: 800 mg Documented by: Tiotropium [place] (Tiotropium 18 Mcg Mdi) 18 mcg INHALATION DAILY.RESPIRATORY [facility] Last Admin: 09/07/20 09:11 Dose: Not Given Documented by: Zinc Gluconate (Zinc Gluconate 50 Mg Tablet) 50 mg PO DAILY [facility] Last Admin: 09/07/20 10:39 Dose: 50 mg Documented by: Vitals/I&O/Wt Last Vital Signs Temp 98.3 F 09/08/20 04:00 Pulse 83 09/08/20 04:00 Resp 24 H 09/08/20 04:00 BP 139/48 09/08/20 04:00 Pulse Ox 96 09/08/20 04:00 09/07/20 09/08/20 09/08/20 22:59 06:59 14:59 Intake Total 350 / 590 50 / 640 Output Total 850 / 2450 350 / 2800 Balance -500 / -1860 -300 / -2160 Physical Exam Narrative: EXAM NARRATIVE: elderly appearing lady, comfortable in bed, using NC O2 exam by RN as telehealth visit VS noted heent- nc/at, eomi, anicteric neck no jvp lungs- dec wheezes and crackles b/l heart reg, +MARCIO abd soft, nt, nd, +BS ext b/l edema improved rt swage tender, rt foot bandaged poor DP and PT pulses neuro- a,a, o x 1-2. weak- gets up w/ assistance Urinary Catheter Management^: Harrison: Cath Placed During This Visit: yes Reason for Continuing Indwelling Catheter: Accurate Measurement of Urinary Output in Critically Ill Patients Urinary Catheter Date of Insertion: 09/03/20 Urinary Catheter Time of Insertion: 20:19 Data : 09/08/20 04:25 09/08/20 04:25 A&P Additional A&P Information 74 yr old female baseline CKD stage 3 w/ baseline cr 1.4- 1.6 mg/dl 1. Combined systolic and diastolic CHF - good diuresis w/ lasix. can dec dose -no jacqueline-i, ARB w/ JOSE E - monitor uop, weights -sestimibi scan appears negative for inducible ischemia -can start aldactone or ARB as per CARdiology/ medicine and monitor uop/ renal fxn 2. JOSE E- likely ATN- pt was on jacqueline-i, diuretics, NSAID, and phos based enema prior to admission. In ER she had a CTA w/ iodine, then ddiuresed. She is a poorly controlled DM and at high risk for KIN/ aTN -also risk of CRS, as new dec in systolic EF and diastolic CHF -renal us reviewed and rt kidney normal. unable to visualize left kidney -less likely AIN, no eosinophillia -ck normal- not cause of JOSE E -low ur na 29 -d/c lovenox- use heparin if needed - f/u ANCA, anti GBM if possible - not sure if sent -low k diet -cr improving. good uop 3. met acidosis - from JOSE E/ infection -improving 4. COVID-19- agree w/ stopping remdesivir as GFR <30 5. DM control- insulin. no metformin or SGLT-2 inhibitors w/ JOSE E 6. Q of pna- renal dose abx- check vanco level -leukocytosis improving -lower ext wound. Q of infection per medicine 7. BP stable 8. anemia- iron sat 21%, ferritin 236- low for covid-19. - iv iron -hgb improving, epo usually not very effective w/ JOSE E 9. phos binder- sevelamer- may be able to dec dose soon as renal fxn is improving pth 110- monitor in 2 months 10. lower exttremity wounds Attestations Medical Necessity Statement*: improving jose e, chf, recent covid, pna- per hospitalist Time Spent in Patient Care: 16 - 35 minutes Coding Level of Care Code Acute Long Term for Dinora Nixon
[2020-09-08 08:04] LABS: Glucose Point of Care 81 mg/dL (70-110)
--- NOTE | 2020-09-08 08:15 | PC.NURSE ---
Addendum entered by Nona Cardozo RN 09/08/20 13:57: 1330- NOTIFIED DR CALDERON OF CONTINUED OOZING OF NOSE. HE WILL CONTACT ER DOCTOR TO SEE IF THEY CAN TREAT IT. 1345--DR RIVERA HERE TO PLACE RHINO ROCKET INTO RIGHT NARE. PT PUSHING/PULLING AT HIS ARMS DURING INSERTION. NOSE CONTINUES TO OOZE AROUND [place]. CALLED & SPOKE TO DR RIVERA, HE INSTRUCTED TO ADD AIR TO PORTS 1-2ML AT A TIME UNTIL BLEEDING STOPS. 5ML OF AIR INFUSED INTO PORTS OF TAMPON & [id number] & PLACED UNDER NASES. PT C/O DISCOMFORT, INSTRUCTED TO LEAVE NOSE ALONE & TO LET NURSING KNOW IF SOMETHING CHANGES. Original Note: NOSE BLEED-- PT HAS WASHCLOTH TO NOSE. BEGAN BLEEDING, INSTRUCTED TO PINCH NOSE & HOLD PRESSURE D/T ON ELIQUIS & HER BLOOD IS THIN & DIFFICULT TO CLOT. OT IN ROOM & STATES THAT PT NOSE CONTINUES TO OOZE, MANUAL PRESSURE APPLIED & DEMONSTRATED TO PT. SHE CONTINUES TO PICK/BLOW NOSE FREQUENTLY AFTER BEING INSTRUCTED NOT TO. NASAL CLAMP APPLIED TO NOSE X30 MINUTES. WHEN RELEASED NOSE BEGAN OOZING IMMEDIATELY. CLAMP APPLIED TO NOSE AGAIN & LEFT FOR ANOTHER 30MINUTES.. WHEN REMOVED NOSE CONTINUED TO OOZE. 1030-CONTACTED DR CALDERON IN REGARDS TO CONTINUED NOSE BLEED AFTER CLAMPING. NEW ORDER FOR AFRIN NASAL SPRAY TO HELP CONTROL BLEED.
--- NOTE | 2020-09-08 08:50 | P.CONIM_ITS ---
Providers/Reason For Consult Consulting Physican/Specialty*: Alvin Kerr MD Reason for Consult*: Congestive heart failure Attending Physician: Juan Bustamante MD Primary Care Provider: Paul Warner Jr, MD History of Present Illness History of Present Illness Deisi Rivers is a 74 year old female with PMH of dementia, IDDM w/ hg a1c of 10.2, EDE, asthma, PVD- s/p partial foot infection rt OM, CKD stage 3 - baseline cr approx 1.3 mg/dl, combined systolic and diastolic CHF. EF approx 25- 30%,recent COVID- 19 in july 2020. She presented 09/03/2020 w/ SOB and confusion. She had a CTA on admission. started on lasix, remdesivir, steroids, lovenox, rocephin and azithromycin. Her cr on admission was 1.3 mg/dl. By 09-05-20, her cr avinash to 2.3 mg/dl. her lasix was stopped, fluids given, remdesivir and steroids were stopped. her abx were limited to ceftriaxone. Nephrology is on board, creatinine has been improving. Cardiology was consulted for possible ischemic workup. She underwent echo that showed EF of 25-30%. Nuclear stress test showed persistent perfusion defect of anterior, anterolateral, inferolateral, mid anteroseptal and apical segments, suggestive of myocardial scarring in the distribution of the left anterior descending artery/circumflex artery. This is likely from prior infarct. Per patient she does have occasional chest discomfort. Patient still has some shortness of breath. She was having nosebleeds today. Review of Systems Const: Reports: fever(s), chills, fatigue and malaise Eyes: Denies: change in vision or blurry vision ENMT: Denies: nasal congestion Card: Denies: chest pain, palpitations or irregular heart rhythm Resp: Reports: dyspnea and productive cough; Denies: non-productive cough or wheezing GI: Denies: abdominal pain, nausea, vomiting, hematemesis, diarrhea, constipation, hematochezia or melena : Denies: flank pain, dysuria or urinary frequency Musc: Denies: neck pain or back pain Skin/Breast: Denies: rash Neuro: Denies: headache(s), dizziness or vertigo Psych: Denies: anxiety or depression Endo: Denies: polyuria or polydipsia Meds/Allergies Home Medications and Allergies Home Medications Medication Instructions Recorded Confirmed Last Taken Type memantine 28 mg capsule 28 mg PO DAILY 11/05/19 09/05/20 11/05/19 08:00 History sprinkle,extended release 24hr acetaminophen 325 mg tablet 650 mg PO Q4H PRN 12/10/19 09/05/20 Unknown History bisacodyl 10 mg rectal suppository 10 mg [place] DAILY PRN 12/10/19 09/05/20 Unknown History sennosides 8.6 mg tablet 8.6 mg PO BID PRN 12/10/19 09/05/20 Unknown History fluticasone 250 mcg-salmeterol 50 1 inh INHALATION BID each 06/10/20 09/05/20 Unknown History mcg/dose blistr powdr for inhalation insulin aspart U-100 [Novolog 10 unit SUBCUT BID 09/05/20 09/05/20 Unknown History Flexpen U-100 Insulin] insulin aspart U-100 [Novolog 18 unit SUBCUT DAILY 09/05/20 09/05/20 Unknown History Flexpen U-100 Insulin] insulin glargine [Lantus U-100 50 unit SUBCUT BID 09/05/20 09/05/20 Unknown History Insulin] lisinopril 5 mg PO DAILY 09/05/20 09/05/20 Unknown History magnesium hydroxide [Milk of 30 ml PO DAILY PRN 09/05/20 09/05/20 Unknown History Magnesia] polyethylene glycol 3350 [Miralax] 17 g PO DAILY PRN 09/05/20 09/05/20 Unknown History risperidone [Risperdal] 0.5 mg PO BID 09/05/20 09/05/20 Unknown History rosuvastatin [Crestor] 20 mg PO DAILY 09/05/20 09/05/20 Unknown History sertraline 75 mg PO BEDTIME 09/05/20 09/05/20 Unknown History sodium phosphates [Enema 118 ml [place] DAILY PRN 09/05/20 09/05/20 Unknown History Disposable] Allergies Allergy/AdvReac Type Severity Reaction Status Date / Time citalopram [From Celexa] Allergy ALGY-Hives Verified 06/10/20 11:19 meloxicam Allergy ALGY-Hives Verified 06/10/20 11:19 shellfish derived Allergy ALGY-Difficulty Verified 06/10/20 11:19 Swallowing Current Medications Current Medications Generic Name Dose Route Start Last Admin Trade Name Freq PRN Reason Stop Dose Admin Acetaminophen 650 mg 09/04/20 00:15 09/06/20 01:56 Acetaminophen 325 Mg Tablet PO 650 mg Q6H PRN Administration Mild/Mod Pain Or Temp >/= 101 Albuterol Sulfate 1 puff 09/04/20 15:17 09/07/20 14:38 Ventolin INHALATION 1 puff Q4H.RESPIRATORY PRN Administration SHORTNESS OF BREATH Apixaban 2.5 mg 09/07/20 09:00 09/07/20 18:50 Apixaban 5 Mg Tablet PO 2.5 mg BID ASTON Administration Ascorbic Acid 500 mg 09/05/20 09:45 09/07/20 10:40 Ascorbic Acid 500 Mg Tablet PO 500 mg DAILY ASTON Administration Aspirin 81 mg 09/04/20 00:15 09/08/20 00:27 Aspirin Ec PO 81 mg Q24H ASTON Administration Atorvastatin Calcium 80 mg 09/04/20 21:00 09/07/20 20:25 Lipitor PO 80 mg BEDTIME ASTON Administration Benzonatate 100 mg 09/05/20 15:00 09/07/20 20:26 Benzonatate 100 Mg Capsule PO 100 mg TID ASTON Administration Carvedilol 3.125 mg 09/04/20 00:30 09/08/20 00:27 Coreg PO 3.125 mg Q12H ASTON Administration Clopidogrel Bisulfate 75 mg 09/05/20 09:00 09/07/20 10:45 Plavix PO 75 mg DAILY ASTON Administration Furosemide 30 mg 09/07/20 08:00 09/07/20 20:21 Furosemide 10 Mg/Ml Sdv 4ml IVP 30 mg Q12H ASTON Administration Ceftriaxone Sodium 1,000 mg/ 50 mls @ 100 mls/hr 09/04/20 00:15 09/08/20 01:00 Sodium Chloride IV Infused Q24H ASTON Infusion Protocol Ferric Sodium Gluconate 125 mg 110 mls @ 110 mls/hr 09/07/20 09:00 09/07/20 16:54 / Sodium Chloride IV 09/14/20 09:59 Infused Q24H ASTON Infusion Sodium Chloride 1,000 mls @ 50 mls/hr 09/07/20 16:45 09/07/20 16:52 Sodium Chloride 0.9% IV 50 mls/hr .Q20H ASTON Administration Insulin Aspart 0 unit 09/05/20 08:16 09/08/20 04:02 Insulin Aspart 100 Unit/1 Ml SUBCUT 6 unit Q4H ASTON Administration Protocol Insulin Detemir 40 unit 09/06/20 08:59 09/07/20 20:25 Insulin Detemir 100 Units/1 Ml SUBCUT 40 unit Q12H ASTON Administration Multivitamins Therapeutic 1 tab 09/04/20 09:00 09/07/20 10:42 Multivitamin Tab PO 1 tab DAILY ASTON Administration Non-Formulary Medication 28 mg 09/04/20 09:00 09/07/20 11:04 Memantine PO Not Given DAILY ASTON Pantoprazole Sodium 40 mg 09/05/20 09:00 09/07/20 10:42 Protonix PO 40 mg DAILY ASTON Administration Risperidone 0.5 mg 09/07/20 09:00 09/07/20 18:50 Risperidone 1 Mg Tablet PO 0.5 mg BID ASTON Administration Fluticasone/Salmeterol 1 puff 09/04/20 20:00 09/08/20 08:14 Advair Diskus 250-50 INHALATION 1 puff BID.RESPIRATORY ASTON Administration Sertraline HCl 25 mg 09/04/20 09:00 09/07/20 10:40 Zoloft PO 25 mg DAILY ASTON Administration Sertraline HCl 75 mg 09/06/20 21:00 09/07/20 20:26 Sertraline 50 Mg Tablet PO 75 mg BEDTIME ASTON Administration Sevelamer Carbonate 800 mg 09/07/20 09:00 09/07/20 20:21 Sevelamer 800 Mg Tablet PO 800 mg TID ASTON Administration Tiotropium Dola 18 mcg 09/07/20 08:00 09/07/20 09:11 Tiotropium 18 Mcg Mdi INHALATION Not Given DAILY.RESPIRATORY ASTON Zinc Gluconate 50 mg 09/05/20 10:00 09/07/20 10:39 Zinc Gluconate 50 Mg Tablet PO 50 mg DAILY ASTON Administration PFSH Acute PFSH: Medical History Anemia Stable Dehiscence of amputation stump Dementia Depression Stable. Reduce dose of Zoloft secondary to initiation of linezolid Diabetes mellitus Hyperlipidemia Hypertension Neuropathy Non-pressure chronic ulcer of left ankle with fat layer exposed Post-tonsillectomy pain PVD (peripheral vascular disease) Type 2 diabetes mellitus with diabetic polyneuropathy Stable Surgical History History of tonsillectomy Status post amputation of toe Family History Sister Diabetes Family/Other Diabetes Daughter Diabetes Psychiatric illness Son Psychiatric illness Denies family history of CAD (coronary artery disease) Clotting disorder Dementia Hyperlipidemia Chronic kidney disease (CKD) Suicide Anesthesia complication Bleeding disorder Family history of premature coronary artery disease Lung disease Cancer Hypertension Stroke Social History Smoking and tobacco status: never smoked Second hand smoke exposure: No Alcohol intake: never History of recent travel: No Vitals/I&O/Wt Last Vital Signs Temp 96.8 F L 09/08/20 07:31 Pulse 82 09/08/20 08:16 Resp 17 09/08/20 08:16 BP 180/64 09/08/20 07:31 Pulse Ox 96 09/08/20 08:16 09/07/20 09/08/20 09/08/20 22:59 06:59 14:59 Intake Total 350 / 590 50 / 640 Output Total 850 / 2450 350 / 2800 800 / 800 Balance -500 / -1860 -300 / -2160 -800 / -800 Physical Exam Narrative: EXAM NARRATIVE: Const COMMON NORMALS: no acute distress and patient oriented x3 [facility] COMMON NORMALS: normocephalic HEAD & SCALP: normocephalic Neck/C-Spine COMMON NORMALS: no JVD Resp COMMON NORMALS: normal respiratory effort, No retractions, No use of accessory muscles and clear to auscultation bilaterally AUSCULTATION: clear to auscultation bilaterally Cardio COMMON NORMALS: no JVD, regular rhythm, S1 normal heart sound present and S2 normal heart sound present RATE: tachycardic RHYTHM: regular rhythm HEART SOUNDS: S1 normal heart sound present and S2 normal heart sound present GI COMMON NORMALS: Normal to inspection, nondistended, normoactive bowel sounds present, Soft to palpation, non-tender, No hepatosplenomegaly present, no masses and no bruits PALPATION: Yes Soft to palpation and Yes No hepatosplenomegaly present Extremity COMMON NORMALS: capillary refill normal, no clubbing, cyanosis or edema, no calf tenderness and no pedal edema Neuro COMMON NORMALS: patient oriented x3 Psych COMMON NORMALS: mental status grossly normal Urinary Catheter Management^: Harrison: Cath Placed During This Visit: yes Reason for Continuing Indwelling Catheter: Assist healing open wound Urinary Catheter Date of Insertion: 09/03/20 Urinary Catheter Time of Insertion: 20:19 A&P Assessment and plan (1) Systolic congestive heart failure: Status: Acute (2) Dementia: Status: Acute (3) Hypertension: Status: Acute (4) Acute respiratory failure with hypoxia: Status: Acute (5) Pneumonia due to COVID-19 virus: Status: Acute (6) Respiratory failure: Status: Acute Qualifiers: Chronicity: acute Respiratory failure complication: hypoxia Qualified Code(s): J96.01 - Acute respiratory failure with hypoxia (7) History of amputation of toe: Status: Acute (8) Diabetes mellitus: Status: Acute (9) Peripheral arterial disease: Status: Acute Patient has newly diagnosed heart failure. EF is 25 to 30%. Nuclear stress test shows scarring in LAD and left circumflex territory. Given her dementia, recent JOSE E, scarring on nuclear stress test and recent Covid pneumonia, will recommend managing conservatively for now. Continue aspirin. Restart lisinopril once creatinine is less than 1.5. Continue Coreg and uptitrate as tolerated Continue statin therapy. Patient can Follow with cardiology as outpatient. We will determine the need for coronary angiography if she has significant chest discomfort. Thank you for involving us with the care of this patient. Please call with questions. 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
[2020-09-08] MEDS: FUROsemide 10 mg/mL SDV 4mL 30 MG IVP ×2 (09:31→20:28)
[2020-09-08] MEDS: risperiDONE 1 mg Tablet 0.5 MG PO ×2 (09:32→17:43)
[2020-09-08] MEDS: apixaban 5 mg Tablet 2.5 MG PO (09:32)
[2020-09-08] MEDS: pantoprazole DR 40 mg Tablet PO (09:32)
[2020-09-08] MEDS: zinc gluconate 50 mg Tablet PO (09:32)
[2020-09-08] MEDS: sevelamer 800 mg Tablet PO ×2 (09:32→17:42)
[2020-09-08] MEDS: sertraline 50 mg Tablet 25 MG PO (09:33)
[2020-09-08] MEDS: multivitamin therapeutic Tablet 1 TAB PO (09:33)
[2020-09-08] MEDS: clopidogrel 75 mg Tablet PO (09:33)
[2020-09-08] MEDS: benzonatate 100 mg Capsule PO ×3 (09:33→20:21)
[2020-09-08] MEDS: ascorbic acid 500 mg Tablet PO (09:33)
--- NOTE | 2020-09-08 11:07 | DCPLANNER ---
IMM completed on 09/08/20 @ 4501. Copy of rights given to pt.
[2020-09-08] MEDS: oxymetazoline 0.05% Nasal Spray 15 mL 2 SPRAY NOSTRIL-B (11:55)
[2020-09-08 11:58] LABS: PROTEIN, TOTAL, 24 HR UR 384 mg/24 h (<150); Protein/Creatinine Ratio 480 mg/g creat (< OR = 114)
[2020-09-08 12:27] LABS: Glucose Point of Care 219 mg/dL (70-110)
--- NOTE | 2020-09-08 13:12 | P.PN_ITS ---
Subjective Subjective: Interval history: Patient was examined this morning, she is in bed, enjoying breakfast, no acute events overnight, she is complaining of generalized weakness, she tells me that she always has chest pain, overall is feeling better, currently on room air, mild cough, no shortness of breath reported, urine output was 2800cc yesterday, Vitals/I&O/Wt Last Vital Signs Temp 97.1 F L 09/08/20 11:00 Pulse 75 09/08/20 12:24 Resp 17 09/08/20 12:24 BP 149/75 09/08/20 11:00 Pulse Ox 97 09/08/20 12:24 09/07/20 09/08/20 09/08/20 22:59 06:59 14:59 Intake Total 350 / 590 50 / 640 Output Total 850 / 2450 350 / 2800 800 / 800 Balance -500 / -1860 -300 / -2160 -800 / -800 Physical Exam Const: COMMON NORMALS: no acute distress and patient oriented x3 HENMT: COMMON NORMALS: normocephalic HEAD & SCALP: normocephalic Neck/C-Spine: COMMON NORMALS: no JVD Resp: COMMON NORMALS: normal respiratory effort, No retractions, No use of accessory muscles and clear to auscultation bilaterally AUSCULTATION: clear to auscultation bilaterally Cardio: COMMON NORMALS: no JVD, regular rhythm, S1 normal heart sound present and S2 normal heart sound present RATE: tachycardic RHYTHM: regular rhythm HEART SOUNDS: S1 normal heart sound present and S2 normal heart sound present GI: COMMON NORMALS: Normal to inspection, nondistended, normoactive bowel sounds present, Soft to palpation, non-tender, No hepatosplenomegaly present, no masses and no bruits PALPATION: Yes Soft to palpation and Yes No hepatosplenomegaly present Extremity: COMMON NORMALS: capillary refill normal, no clubbing, cyanosis or edema, no calf tenderness and no pedal edema Neuro: COMMON NORMALS: patient oriented x3 Psych: COMMON NORMALS: mental status grossly normal Urinary Catheter Management^: Harrison: Cath Placed During This Visit: yes Reason for Continuing Indwelling Catheter: Assist healing open wound Urinary Catheter Date of Insertion: 09/03/20 Urinary Catheter Time of Insertion: 20:19 Data : 09/08/20 04:25 09/08/20 04:25 A&P Assessment and plan (1) Acute respiratory failure with hypoxia: Status: Acute (2) Systolic congestive heart failure: Status: Acute (3) Pneumonia due to COVID-19 virus: CRP with some mild improvement. Continue treatment as above. Status: Acute (4) NSTEMI (non-ST elevated myocardial infarction): As above. Status: Acute (5) Peripheral arterial disease: Status: Acute (6) Septic encephalopathy: Status: Acute (7) Hypertension: Status: Acute (8) Diabetes mellitus: -Moderate dose sliding scale Status: Acute (9) Dementia: Status: Acute Additional A&P Information Acute hypoxic respiratory failure: Resolved. Patient continues to do well on room air. Most likely secondary to acute exacerbation of congestive heart failure. Less likely secondary to COVID-19. Patient was COVID-19 positive more than 2 weeks. Patient has remained afebrile and is maintaining saturation at room air. Rapid antigen negative. Isolation precautions removed. Patient received 2-day course of remdesivir and dexamethasone with last dose on September 04. Continue to monitor viral markers including CRP, LDH, proBNP, CRP, fibrinogen, ferritin, D-dimer. Continue with Advair, Spiriva for now. Vitamin C, zinc. Oxygen supplementation keeping saturation over 92%. Eliquis 2.5 mg twice daily. Most likely patient will require it for next 2 weeks as she is recovering from COVID-19. D-dimer elevated but now trending down. For congestive heart failure: New diagnosis. Echocardiogram shows EF of 30% with grade 2 diastolic dysfunction with possible septal hypokinesis and grade 2 diastolic dysfunction with mild MR. Could be secondary to viral myocarditis though cannot rule out ischemic etiology. Patient has history of peripheral arterial disease. EKG reviewed. No LBBB. Cardiac stress test shows:myocardial perfusion imaging revealing a moderate to large areas of persistent decreased tracer uptake in the anterior, anterolateral, inferolateral, mid anteroseptal and apical segments, suggestive of myocardial scarring in the distribution of the left anterior descending artery/circumflex artery. -Had elevated troponins on admission, 6-hour 123.6, delta 17.4 -We will have cardiology see patient, decide to perform a cardiac catheterization versus outpatient stress cath, creatinine 2.1 today Continue with Eliquis, aspirin, statin. HbA1c 10.2 Strict input output charting. Daily weights. JOSE E: Most likely secondary to ATN versus KIN. Patient was aggressively diuresed since admission. Baseline creatinine 1.4-1.6. Creatinine stable today, 2.1 Urine output 2800 cc Currently on Lasix 30 mg IV push every 12 hours, with gentle IV hydration at 50 cc an hour due to poor oral intake Nephrology recommendations appreciated. Medical reconciliation done for nephrotoxic drugs. Continue with IV fluids at 50 cc/h and continue to prerna them with Lasix 30 mg IV twice daily. Patient is euvolemic. Elevated troponin: Baseline troponin I 41 which could be secondary to elevated creatinine. Most likely patient will require ischemic work-up as above. Leukocytosis: Most likely secondary to steroids. Patient does not have any active signs of infection at present. Stop azithromycin, vancomycin. Continue with ceftriaxone for now. MRSA swab positive. Blood cultures remain negative. Septic encephalopathy: Resolved. Hypertension: Goal blood pressure less than 140/90 mmHg. Continue with Coreg 3.125 mg twice daily. Continue to monitor blood pressures. Type 2 diabetes mellitus: Better controlled now. Continue with Lantus at 40 units twice daily. Insulin sliding scale every 4 hours for now at moderate to high dose. Lower extremity wounds: Continue wound care Deep tissue injury of heels: Chronic, bilaterally. Offload. Will need additional assessment once she is better. Full code. Carb consistent cardiac diet. Protonix for daily prophylaxis. Eliquis 2.5 mg twice daily. 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
[2020-09-08 14:57] LABS: ABNORMAL PROTEIN BAND 1 0.3 g/dL (NONE DETECTED); ALBUMIN 1.9 g/dL (3.8-4.8); ALPHA 1 GLOBULIN 0.5 g/dL (0.2-0.3); ALPHA 2 GLOBULIN 1.1 g/dL (0.5-0.9); BETA 1 GLOBULIN 0.4 g/dL (0.4-0.6); BETA 2 GLOBULIN 0.6 g/dL (0.2-0.5); GAMMA GLOBULIN 1.2 g/dL (0.8-1.7)
[2020-09-08 15:58] LABS: ALBUMIN 100 %; ALPHA-1-GLOBULINS 0 %; ALPHA-2-GLOBULINS 0 %; BETA GLOBULINS 0 %; GAMMA GLOBULINS 0 %
[2020-09-08 16:17] LABS: Glucose Point of Care 278 mg/dL (70-110)
[2020-09-08] MEDS: polyethylene glycol 3350 Pkt 17 gm PO (17:40)
[2020-09-08] MEDS: docusate sodium 100 mg Capsule PO ×2 (17:41→18:35)
[2020-09-08] MEDS: ferric gluconate 125 MG in sodium chloride 0.9% (100 ml) 100 ML 110 MG IV (17:41)
[2020-09-08 20:00] LABS: Glucose Point of Care 302 mg/dL (70-110)
[2020-09-08] MEDS: sertraline 50 mg Tablet 75 MG PO (20:21)
[2020-09-08] MEDS: atorvastatin 40 mg Tablet 80 MG PO (20:21)
--- NOTE | 2020-09-08 21:07 | PC.NURSE ---
NURSING NOTE: PT ALERT AND ORIENTED X4. MOVES ALL EXTREMITIES AND FOLLOWS COMMANDS. RESTING IN BED AT START OF SHIFT. DROWSY BUT AROUSES EASILY. PACKING IN NARES REMAINS INTACT - NO ACTIVE DRAINAGE NOTED. DENIES PAIN. ALL VS AND ASSESSMENTS CHARTED. REIS PATENT TO DD. NO DISTRESS NOTED AT THIS TIME.
[2020-09-08 23:29] LABS: Glucose Point of Care 221 mg/dL (70-110)
[2020-09-09] VITALS (11 sets, daily range): BP systolic 122–197; BP diastolic 46–98; PULSE 88–103; RESP 16–33; TEMP 35.6–36.8; O2SAT 91–96
[2020-09-09 04:33] LABS: Glucose Point of Care 130 mg/dL (70-110)
[2020-09-09 05:23] LABS: Basophils % 0.3 %; Eosinophils # 0.2 10^3/uL (0.0-0.8); Eosinophils % 1.8 %; Hematocrit 29.9 % (37.0-47.0); Lymphocytes # 1.6 10^3/uL (0.8-4.8); Lymphocytes % 13.6 %; Mean Corpuscular HGB Conc 30.1 g/dL (30.0-36.0); Mean Corpuscular Hemoglobin 25.9 pg (28.0-34.0); Mean Corpuscular Volume 85.9 fL (81-99); Mean Platelet Volume 9.6 fL (7.4-10.4); Monocytes # 0.9 10^3/uL (0.2-0.9); Monocytes % 7.3 %; Neutrophils # 8.97 10^3/uL (1.8-7.7); Nucleated Red Blood Cells % 0 %; Platelet Count 466 10^3/cmm (130-400); Red Blood Count 3.48 10^6/uL (4.1-5.3); Red Cell Distribution Width 17.3 % (12.1-15.1); White Blood Count 11.8 10^3/uL (4.0-10.0)
--- NOTE | 2020-09-09 05:34 | PC.NURSE ---
NURSING NOTE: SHIFT SUMMARY: PT SLEPT MOST OF SHIFT. NOSE PACKING IN PLACE TO BILATERAL NARES. NO NEW DRAINAGE NOTED. DENIES PAIN OR DISCOMFORT. ALL VS AND ASSESSMENTS CHARTED. RESTING QUIETLY.
[2020-09-09 05:53] LABS: Alanine Aminotransferase 17 U/L (0-33); Albumin Level 2.6 g/dL (3.5-5.2); Alkaline Phosphatase 105 IU/L (35-105); Aspartate Amino Transferase 20 U/L (0-32); Blood Urea Nitrogen 55 mg/dL (8-23); Calcium 8.8 mg/dL (8.5-10.5); Carbon Dioxide 26 mmol/L (22-29); Chloride 108 mmol/L (98-107); Globulin 4.2 g/dL (1.3-4.6); Glucose 131 mg/dL (65-115); Magnesium 1.6 mg/dL (1.7-2.3); Osmolality Calculated 313 mOsm/kg (285-295); Phosphorus 3.6 mg/dL (2.5-4.5); Sodium 143 mmol/L (136-145); Total Bilirubin 0.3 mg/dL (0.15-1.2); Total Protein 6.8 g/dL (6.6-8.7)
[2020-09-09 06:09] LABS: Anion Gap 13.9 (5-19); Potassium 4.9 mmol/L (3.5-5.1)
[2020-09-09 07:27] LABS: Glucose Point of Care 115 mg/dL (70-110)
[2020-09-09] MEDS: albuterol 8 gm MDI 1 PUFF INHALATION (07:34)
--- NOTE | 2020-09-09 08:30 | PC.NURSE ---
Facial pressure and not feeling well frequent pVC's Pt reported of nasal pressure. noted nose pack on right nares. VS stable. Will notify
[2020-09-09] MEDS: docusate sodium 100 mg Capsule PO ×2 (09:30→17:48)
[2020-09-09] MEDS: multivitamin therapeutic Tablet 1 TAB PO (09:30)
[2020-09-09] MEDS: polyethylene glycol 3350 Pkt 17 gm PO (09:30)
[2020-09-09] MEDS: ascorbic acid 500 mg Tablet PO (09:30)
[2020-09-09] MEDS: pantoprazole DR 40 mg Tablet PO (09:31)
[2020-09-09] MEDS: apixaban 5 mg Tablet 2.5 MG PO (09:31)
[2020-09-09] MEDS: benzonatate 100 mg Capsule PO ×3 (09:32→21:13)
[2020-09-09] MEDS: risperiDONE 1 mg Tablet 0.5 MG PO ×2 (09:32→17:49)
[2020-09-09] MEDS: clopidogrel 75 mg Tablet PO (09:32)
[2020-09-09] MEDS: sertraline 50 mg Tablet 25 MG PO (09:33)
--- NOTE | 2020-09-09 11:00 | PC.NURSE ---
mild epistaxis w/nasal pack on right nares notified Dr and received tel order to hold eliquis for now. and checked for sinus x-ray. will monitor
--- NOTE | 2020-09-09 11:05 | PM.PN ---
Subjective Subjective: Interval history: She feels a little worn down this morning. She still has a nosebleed and has nasal packing in place. She is a little hoarse. Her edema has improved. She is passing urine, good volumes of urine in response to diuretics. Medications: Reviewed: Yes Medication Review Details: Current Medications Acetaminophen (Acetaminophen 325 Mg Tablet) 650 mg PO Q6H PRN PRN Reason: Mild/Mod Pain Or Temp >/= 101 Last Admin: 09/06/20 01:56 Dose: 650 mg Documented by: Albuterol Sulfate (Ventolin) 1 puff INHALATION Q4H.RESPIRATORY PRN PRN Reason: SHORTNESS OF BREATH Last Admin: 09/07/20 14:38 Dose: 1 puff Documented by: Apixaban (Apixaban 5 Mg Tablet) 2.5 mg PO BID [facility] Last Admin: 09/07/20 18:50 Dose: 2.5 mg Documented by: Ascorbic Acid (Ascorbic Acid 500 Mg Tablet) 500 mg PO DAILY [facility] Last Admin: 09/07/20 10:40 Dose: 500 mg Documented by: Aspirin (Aspirin Ec) 81 mg PO Q24H [facility] Last Admin: 09/08/20 00:27 Dose: 81 mg Documented by: Atorvastatin Calcium (Lipitor) 80 mg PO BEDTIME [facility] Last Admin: 09/07/20 20:25 Dose: 80 mg Documented by: Benzonatate (Benzonatate 100 Mg Capsule) 100 mg PO TID [facility] Last Admin: 09/07/20 20:26 Dose: 100 mg Documented by: Carvedilol (Coreg) 3.125 mg PO Q12H [facility] Last Admin: 09/08/20 00:27 Dose: 3.125 mg Documented by: Clopidogrel Bisulfate (Plavix) 75 mg PO DAILY [facility] Last Admin: 09/07/20 10:45 Dose: 75 mg Documented by: Dextrose (D50w) 25 ml IVP ONCE PRN; Protocol PRN Reason: hypoglycemia protocol Dextrose (D50w) 50 ml IVP PRN PRN; Protocol PRN Reason: hypoglycemia protocol Furosemide (Furosemide 10 Mg/Ml Sdv 4ml) 30 mg IVP Q12H [facility] Last Admin: 09/07/20 20:21 Dose: 30 mg Documented by: Glucagon (Glucagen) 1 mg IM ONCE PRN; Protocol PRN Reason: Adult Acute Hypoglycemia Prot. Ceftriaxone Sodium 1,000 mg/ (Sodium Chloride) 50 mls @ 100 mls/hr IV Q24H [facility]; Protocol Last Infusion: 09/08/20 01:00 Dose: Infused Documented by: Dextrose (D5w) 500 mls @ 100 mls/hr IV ONCE PRN; Protocol PRN Reason: Adult Acute Hypoglycemia Prot Ferric Sodium Gluconate 125 mg (/ Sodium Chloride) 110 mls @ 110 mls/hr IV Q24H [facility] Stop: 09/14/20 09:59 Last Infusion: 09/07/20 16:54 Dose: Infused Documented by: Sodium Chloride (Sodium Chloride 0.9%) 1,000 mls @ 50 mls/hr IV .Q20H [facility] Last Admin: 09/07/20 16:52 Dose: 50 mls/hr Documented by: Insulin Aspart (Insulin Aspart 100 Unit/1 Ml) 0 unit SUBCUT Q4H [facility]; Protocol Last Admin: 09/08/20 04:02 Dose: 6 unit Documented by: Insulin Detemir (Insulin Detemir 100 Units/1 Ml) 40 unit SUBCUT Q12H [facility] Last Admin: 09/07/20 20:25 Dose: 40 unit Documented by: Multivitamins Therapeutic (Multivitamin Tab) 1 tab PO DAILY [facility] Last Admin: 09/07/20 10:42 Dose: 1 tab Documented by: Non-Formulary Medication (Memantine) 28 mg PO DAILY [facility] Last Admin: 09/07/20 11:04 Dose: Not Given Documented by: Ondansetron HCl (Zofran) 4 mg IVP Q6H PRN PRN Reason: NAUSEA AND VOMITING Ondansetron HCl (Ondansetron 2 Mg/Ml Sdv 2 Ml) 4 mg IVP Q2M PRN PRN Reason: NAUSEA Pantoprazole Sodium (Protonix) 40 mg PO DAILY [facility] Last Admin: 09/07/20 10:42 Dose: 40 mg Documented by: Risperidone (Risperidone 1 Mg Tablet) 0.5 mg PO BID [facility] Last Admin: 09/07/20 18:50 Dose: 0.5 mg Documented by: Fluticasone/Salmeterol (Advair Diskus 250-50) 1 puff INHALATION BID.RESPIRATORY [facility] Last Admin: 09/07/20 22:12 Dose: 1 puff Documented by: Sertraline HCl (Zoloft) 25 mg PO DAILY [facility] Last Admin: 11/11/20 10:40 Dose: 25 mg Documented by: Sertraline HCl (Sertraline 50 Mg Tablet) 75 mg PO BEDTIME [facility] Last Admin: 09/07/20 20:26 Dose: 75 mg Documented by: Sevelamer Carbonate (Sevelamer 800 Mg Tablet) 800 mg PO TID [facility] Last Admin: 09/07/20 20:21 Dose: 800 mg Documented by: Tiotropium Laurel (Tiotropium 18 Mcg Mdi) 18 mcg INHALATION DAILY.RESPIRATORY [facility] Last Admin: 09/07/20 09:11 Dose: Not Given Documented by: Zinc Gluconate (Zinc Gluconate 50 Mg Tablet) 50 mg PO DAILY [facility] Last Admin: 09/07/20 10:39 Dose: 50 mg Documented by: Vitals/I&O/Wt Last Vital Signs Temp 96.1 F L 09/09/20 07:36 Pulse 102 H 09/09/20 07:41 Resp 18 09/09/20 07:40 BP 188/87 09/09/20 07:36 Pulse Ox 95 09/09/20 07:40 09/08/20 09/09/20 09/09/20 22:59 06:59 14:59 Output Total 1080 / 1880 3600 / 5480 Balance -1080 / -1880 -3600 / -5480 Physical Exam Urinary Catheter Management^: Harrison: Cath Placed During This Visit: yes Reason for Continuing Indwelling Catheter: Accurate Measurement of Urinary Output in Critically Ill Patients Urinary Catheter Date of Insertion: 09/03/20 Urinary Catheter Time of Insertion: 20:19 Data : 09/09/20 04:57 09/09/20 04:57 Micro: Microbiology 09/03/20 16:25 Blood Culture - Final Blood NO GROWTH AFTER 5 DAYS 09/03/20 15:05 Blood Culture - Final Blood NO GROWTH AFTER 5 DAYS A&P Additional A&P Information 1. JOSE E - recovering renal function to baseline levels - likely multifactorial injury - avoid the usuals 2. Heart failure - BID lasix and Coreg on board - ACEi being held for the time being; may restart under the close supervision of Cardiology 3. Nose bleed with nasal packing 4. COVID - supportive care; appears stable - will sign off her care at this time as renal function is back to baseline; follow up with outpatient Nephrology in 3-4 weeks time Paolo Leal MD Nephrology [phone] Patient seen and examined via telemedicine, with the assistance of the bedside RN Attestations Medical Necessity Statement*: Eval for JOSE E Coding Level of Care Code Acute [employer] Sc[employer] for [facility]
--- NOTE | 2020-09-09 11:06 | XR_ITS ---
WS: [id number] Sinus series, 3 views, 09/09/2020 Clinical Data: nose bleed, eliquis Comparison: None. Findings: There is no mucoperiosteal thickening of the sinuses. There are no air-fluid levels. There is no bone destruction or erosion. XR/XR sinus min 3V* [id number] Impression: Negative sinus series.
[2020-09-09] MEDS: ferric gluconate 125 MG in sodium chloride 0.9% (100 ml) 100 ML 110 MG IV (11:09)
[2020-09-09] MEDS: zinc gluconate 50 mg Tablet PO (11:10)
[2020-09-09] MEDS: sevelamer 800 mg Tablet PO ×2 (12:15→17:49)
[2020-09-09] MEDS: carvedilol 3.125 mg Tablet PO (12:15)
[2020-09-09 12:22] LABS: Glucose Point of Care 229 mg/dL (70-110)
--- NOTE | 2020-09-09 13:54 | PM.PN ---
Subjective Subjective: Interval history: Yesterday morning, patient had episodes of nosebleeding, requiring holding of Eliquis, nasal packing, Afrin, nasal bleeding had stopped, her Eliquis was resumed this morning, but she started to bleed afterwards, requiring Afrin, repacking, Eliquis will have to be indefinitely held, she states that she is just not feeling well this morning, no fevers, just generalized weakness, no shortness of breath, is having multiple joint pains Vitals/I&O/Wt Last Vital Signs Temp 98.0 F 09/09/20 12:00 Pulse 103 H 09/09/20 12:00 Resp 16 09/09/20 12:00 BP 122/60 09/09/20 12:00 Pulse Ox 91 09/09/20 12:00 09/08/20 09/09/20 09/09/20 22:59 06:59 14:59 Intake Total 110 / 110 236 / 236 Output Total 1080 / 1880 3600 / 5480 Balance -970 / -1770 -3600 / -5370 236 / 236 Physical Exam Const: COMMON NORMALS: no acute distress, patient oriented x3 and alert ORIENTATION/CONSCIOUSNESS: Yes oriented to person and Yes oriented to place; not oriented to time HENMT: COMMON NORMALS: normocephalic HEAD & SCALP: normocephalic OTHER: Nasal packing right naris Neck/C-Spine: COMMON NORMALS: no JVD and Thyroid normal THYROID: Thyroid normal Lymph: LYMPHATIC: no lymphadenopathy noted Resp: COMMON NORMALS: normal respiratory effort, No retractions, No use of accessory muscles and clear to auscultation bilaterally AUSCULTATION: clear to auscultation bilaterally Cardio: COMMON NORMALS: no JVD, regular rate, regular rhythm, S1 normal heart sound present and S2 normal heart sound present RATE: regular rate RHYTHM: regular rhythm HEART SOUNDS: S1 normal heart sound present and S2 normal heart sound present GI: COMMON NORMALS: Normal to inspection, nondistended, normoactive bowel sounds present, Soft to palpation, non-tender, No hepatosplenomegaly present, no masses and no bruits PALPATION: Yes Soft to palpation and Yes No hepatosplenomegaly present Extremity: COMMON NORMALS: capillary refill normal, no clubbing, cyanosis or edema, no calf tenderness and no pedal edema Neuro: COMMON NORMALS: patient oriented x3 SENSORIUM/ORIENTATION: Yes alert, Yes oriented to person, Yes oriented to place and No oriented to time Psych: COMMON NORMALS: mental status grossly normal APPEARANCE: Yes grossly normal Urinary Catheter Management^: Harrison: Cath Placed During This Visit: yes Reason for Continuing Indwelling Catheter: Accurate Measurement of Urinary Output in Critically Ill Patients Urinary Catheter Date of Insertion: 09/03/20 Urinary Catheter Time of Insertion: 20:19 Data : 09/09/20 04:57 09/09/20 04:57 Micro: Microbiology 09/03/20 16:25 Blood Culture - Final Blood NO GROWTH AFTER 5 DAYS 09/03/20 15:05 Blood Culture - Final Blood NO GROWTH AFTER 5 DAYS A&P Assessment and plan (1) Acute respiratory failure with hypoxia: Status: Acute (2) Systolic congestive heart failure: Status: Acute (3) Pneumonia due to COVID-19 virus: CRP with some mild improvement. Continue treatment as above. Status: Acute (4) NSTEMI (non-ST elevated myocardial infarction): As above. Status: Acute (5) Peripheral arterial disease: Status: Acute (6) Septic encephalopathy: Status: Acute (7) Hypertension: Status: Acute (8) Diabetes mellitus: -Moderate dose sliding scale Status: Acute (9) Dementia: Status: Acute (10) Right-sided nosebleed: Status: Acute Additional A&P Information Right-sided nosebleed status post packing twice, Afrin, so far bleeding has stopped, continue to hold Eliquis, likely will require it to be held on discharge, hemoglobin 9.0, will do an x-ray of her sinuses Acute hypoxic respiratory failure: Resolved. Patient continues to do well on room air. Most likely secondary to acute exacerbation of congestive heart failure. Less likely secondary to COVID-19. Patient was COVID-19 positive more than 2 weeks. Patient has remained afebrile and is maintaining saturation at room air. Rapid antigen negative. Isolation precautions removed. Patient received 2-day course of remdesivir and dexamethasone with last dose on September 04. Continue to monitor viral markers including CRP, LDH, proBNP, CRP, fibrinogen, ferritin, D-dimer. Continue with Advair, Spiriva for now. Vitamin C, zinc. Oxygen supplementation keeping saturation over 92%. Eliquis 2.5 mg twice daily on hold. Will likely be held on discharge given recurrent bleeding D-dimer elevated but now trending down. For congestive heart failure: New diagnosis. Echocardiogram shows EF of 30% with grade 2 diastolic dysfunction with possible septal hypokinesis and grade 2 diastolic dysfunction with mild MR. Could be secondary to viral myocarditis though cannot rule out ischemic etiology. Patient has history of peripheral arterial disease. EKG reviewed. No LBBB. Cardiac stress test shows:myocardial perfusion imaging revealing a moderate to large areas of persistent decreased tracer uptake in the anterior, anterolateral, inferolateral, mid anteroseptal and apical segments, suggestive of myocardial scarring in the distribution of the left anterior descending artery/circumflex artery. -Had elevated troponins on admission, 6-hour 123.6, delta 17.4 likely perform a cardiac cath as outpatient, creatinine 1.6 today PVCs: Frequent PVCs seen on the monitor no complaints of chest pain, continue to monitor Continue with aspirin, statin. HbA1c 10.2 Strict input output charting. Daily weights. JOSE E: Most likely secondary to ATN versus KIN. Patient was aggressively diuresed since admission. Baseline creatinine 1.4-1.6. Creatinine stable today, 1.6 Urine output 2800 cc Currently on Lasix 30 mg IV push every 12 hours, with gentle IV hydration at 50 cc an hour due to poor oral intake Nephrology recommendations appreciated. Medical reconciliation done for nephrotoxic drugs. Stop IV fluids, transition to 40 mg Lasix daily -8 L since admission Elevated troponin: Baseline troponin I 41 which could be secondary to elevated creatinine. Most likely patient will a cardiac catheterization at some point when creatinine is better Leukocytosis: Most likely secondary to steroids. Patient does not have any active signs of infection at present. Stop azithromycin, vancomycin. Continue with ceftriaxone for now. MRSA swab positive. Blood cultures remain negative. Bilateral lower extremity superficial venous ulcers: Look clean and dry, no indications for infection, is on Rocephin as above Septic encephalopathy: Resolved. Hypertension: Goal blood pressure less than 140/90 mmHg. Continue with Coreg 3.125 mg twice daily. Continue to monitor blood pressures. Type 2 diabetes mellitus: Better controlled now. Continue with Lantus at 40 units twice daily. Insulin sliding scale every 4 hours for now at moderate to high dose. Lower extremity wounds: Continue wound care Deep tissue injury of heels: Chronic, bilaterally. Offload. Will need additional assessment once she is better. Full code. Carb consistent cardiac diet. Protonix for daily prophylaxis. Eliquis 2.5 mg twice daily. Plan: Monitor creatinine, monitor urine output, transition to p.o. 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
[2020-09-09 16:02] LABS: Glucose Point of Care 239 mg/dL (70-110)
[2020-09-09] MEDS: FUROsemide 20 mg Tablet PO (17:48)
[2020-09-09 20:52] LABS: Glucose Point of Care 181 mg/dL (70-110)
[2020-09-09] MEDS: atorvastatin 40 mg Tablet 80 MG PO (21:13)
[2020-09-09] MEDS: sertraline 50 mg Tablet 75 MG PO (21:14)
[2020-09-10] VITALS (9 sets, daily range): BP systolic 123–162; BP diastolic 61–93; PULSE 80–98; RESP 16–22; TEMP 36.4–37.2; O2SAT 90–97
[2020-09-10 00:30] LABS: Glucose Point of Care 158 mg/dL (70-110)
[2020-09-10] MEDS: cefTRIAXone 1,000 MG in sodium chloride 0.9% (plus) 50 ML 100 MG IV (00:42)
[2020-09-10] MEDS: carvedilol 3.125 mg Tablet PO ×2 (00:43→12:51)
[2020-09-10] MEDS: aspirin 81 mg EC Tablet PO (00:43)
--- NOTE | 2020-09-10 02:54 | PC.NURSE ---
PT RESTING IN BED. 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 PT SCREAMED WHILE BEING REPOSITIONED, BUT DENIES PAIN. WILL CONTINUE TO MONITOR.
[2020-09-10 04:25] LABS: Glucose Point of Care 89 mg/dL (70-110)
[2020-09-10 04:56] LABS: Basophils % 0.4 %; Eosinophils # 0.2 10^3/uL (0.0-0.8); Eosinophils % 1.6 %; Hematocrit 29.4 % (37.0-47.0); Hemoglobin 8.7 g/dL (11.5-15.3); Lymphocytes # 1.8 10^3/uL (0.8-4.8); Lymphocytes % 16.6 %; Mean Corpuscular HGB Conc 29.6 g/dL (30.0-36.0); Mean Corpuscular Hemoglobin 26.1 pg (28.0-34.0); Mean Corpuscular Volume 88.3 fL (81-99); Mean Platelet Volume 9.2 fL (7.4-10.4); Monocytes # 0.9 10^3/uL (0.2-0.9); Monocytes % 8.4 %; Neutrophils # 7.92 10^3/uL (1.8-7.7); Neutrophils % 72.3 %; Nucleated Red Blood Cells % 0 %; Platelet Count 454 10^3/cmm (130-400); Red Blood Count 3.33 10^6/uL (4.1-5.3); Red Cell Distribution Width 17.4 % (12.1-15.1)
[2020-09-10 05:50] LABS: Alanine Aminotransferase 13 U/L (0-33); Albumin Level 2.2 g/dL (3.5-5.2); Alkaline Phosphatase 93 IU/L (35-105); Anion Gap 14.7 (5-19); Aspartate Amino Transferase 13 U/L (0-32); Blood Urea Nitrogen 44 mg/dL (8-23); Calcium 8.9 mg/dL (8.5-10.5); Carbon Dioxide 25 mmol/L (22-29); Chloride 110 mmol/L (98-107); Globulin 4.4 g/dL (1.3-4.6); Glucose 80 mg/dL (65-115); Magnesium 1.6 mg/dL (1.7-2.3); Osmolality Calculated 310 mOsm/kg (285-295); Phosphorus 3.4 mg/dL (2.5-4.5); Potassium 4.7 mmol/L (3.5-5.1); Sodium 145 mmol/L (136-145); Total Bilirubin 0.3 mg/dL (0.15-1.2); Total Protein 6.6 g/dL (6.6-8.7)
--- NOTE | 2020-09-10 06:00 | XRR_ITS ---
PROCEDURE INFORMATION: Exam: XR Chest, 1 View Exam date and time: 09/10/2020 4:56 AM Age: 74 years old Clinical indication: Shortness of breath; Additional info: Covid TECHNIQUE: Imaging protocol: XR of the chest Views: 1 view. COMPARISON: CR XR chest 1V portable [id number] 09/08/2020 6:52 AM FINDINGS: Lungs: Infiltrates within the lower lungs show interval increase. Pleural space: Unremarkable. No pleural effusion. No pneumothorax. Heart/Mediastinum: Stable heart size allowing for variation of positioning and technique. Vasculature: Calcified thoracic aorta. Calcified thoracic aorta. Bones/joints: Unremarkable. XR/XR chest 1V portable [id number] IMPRESSION: 1. Increasing interstitial or partially alveolar infiltrates lower lungs with greatest involvement on the left. 2. Stable heart size with left ventricular prominence.
[2020-09-10 06:35] LABS: Glucose Point of Care 72 mg/dL (70-110)
--- NOTE | 2020-09-10 08:00 | PC.NURSE ---
Removed nasal packing on right nares at bedside.received verbal order to remove packing.monitor for episodes of nose bleed. Pt has minimal nose bleed upon removal.
[2020-09-10] MEDS: docusate sodium 100 mg Capsule PO ×2 (08:04→17:03)
[2020-09-10] MEDS: ascorbic acid 500 mg Tablet PO (08:04)
[2020-09-10] MEDS: risperiDONE 1 mg Tablet 0.5 MG PO ×2 (08:04→17:02)
[2020-09-10] MEDS: sertraline 50 mg Tablet 25 MG PO (08:04)
[2020-09-10] MEDS: multivitamin therapeutic Tablet 1 TAB PO (08:04)
[2020-09-10] MEDS: zinc gluconate 50 mg Tablet PO (08:04)
[2020-09-10] MEDS: benzonatate 100 mg Capsule PO ×3 (08:04→20:48)
[2020-09-10] MEDS: clopidogrel 75 mg Tablet PO (08:04)
[2020-09-10] MEDS: sevelamer 800 mg Tablet PO ×3 (08:04→17:02)
[2020-09-10] MEDS: pantoprazole DR 40 mg Tablet PO (08:05)
[2020-09-10] MEDS: polyethylene glycol 3350 Pkt 17 gm PO (08:05)
[2020-09-10] MEDS: FUROsemide 20 mg Tablet PO ×2 (08:05→15:40)
[2020-09-10] MEDS: oxymetazoline 0.05% Nasal Spray 15 mL 2 SPRAY NOSTRIL-B ×2 (08:30→18:42)
--- NOTE | 2020-09-10 09:08 | CTR_ITS ---
PROCEDURE INFORMATION: Exam: CT Chest Without Contrast Exam date and time: 09/10/2020 9:11 AM Age: 74 years old Clinical indication: Abnormal findings; Abnormal radiologic exam of lung or chest; Patient HX: Bll infiltrates l>r; Additional info: Bilateral lower lobe infiltrates TECHNIQUE: Imaging protocol: Computed tomography of the chest without contrast. Radiation optimization: All CT scans at this facility use at least one of these dose optimization techniques: automated exposure control; mA and/or kV adjustment per patient size (includes targeted exams where dose is matched to clinical indication); or iterative reconstruction. COMPARISON: CT angio chest PE protcl [id number] 09/03/2020 4:58 PM RADIATION DOSE METRICS: Total DLP (mGy-cm): 931.19 FINDINGS: Lungs: Bibasilar pulmonary infiltrates are present. They have improved when compared to previous study. No new pulmonary infiltrates are seen. Pleural space: Pleural effusions have resolved. Heart: Coronary arteries are calcified. The heart is not enlarged. Aorta: There is calcification of the aorta but no aneurysm. Lymph nodes: Unremarkable. No enlarged lymph nodes. Bones/joints: Degenerative disease is present in the spine with sclerosis and osteophyte formation. Soft tissues: Unremarkable. CT/CT chest [facility] [id number] IMPRESSION: 1. Bibasilar pulmonary infiltrates have significantly improved. 2. Pleural effusions have resolved. 3. No new abnormalities have developed since previous CT scan. Radiation Dose CTDIVOL = (mGy): DLP = 931.19 (mGy-cm)
--- NOTE | 2020-09-10 09:52 | PC.SOCIAL ---
IMM Updated Updated pt on Pg 2 IMM. No questions voiced. Provided pt a copy. Signed, dated, & timed copy in chart.
[2020-09-10 10:02] LABS: NT Pro B Type Natriuretic Pept 8841 pg/mL (0-450)
[2020-09-10 10:14] LABS: C Reactive Protein 21.1 mg/L (0.0-4.9)
--- NOTE | 2020-09-10 10:19 | PC.NURSE ---
Up in the chair by PT
[2020-09-10] MEDS: levofloxacin-dextrose 5 % 750 MG/150 ML PREMIX 100 MG IV (10:27)
[2020-09-10] MEDS: ferric gluconate 125 MG in sodium chloride 0.9% (100 ml) 100 ML 110 MG IV (10:27)
[2020-09-10 11:38] LABS: Glucose Point of Care 100 mg/dL (70-110)
--- NOTE | 2020-09-10 14:27 | PM.PN ---
Subjective Subjective: Interval history: This morning patient was examined, she sitting up in bed, her nasal packing was removed, she does have dried blood, hemoglobin is 8.7, patient tells me that she is just not feeling well this morning, has some cough, fatigue, malaise, no fevers, no shortness of breath, no chest pain Vitals/I&O/Wt Last Vital Signs Temp 97.8 F 09/10/20 08:10 Pulse 89 09/10/20 12:38 Resp 18 09/10/20 12:38 BP 127/61 09/10/20 12:38 Pulse Ox 95 09/10/20 12:38 09/09/20 09/10/20 09/10/20 22:59 06:59 14:59 Intake Total 118 / 464 360 / 360 Output Total 1025 / 1875 Balance 118 / -386 -1025 / -1411 360 / 360 Physical Exam Const: COMMON NORMALS: no acute distress GENERAL APPEARANCE: ill appearing HENMT: COMMON NORMALS: normocephalic HEAD & SCALP: normocephalic Neck/C-Spine: COMMON NORMALS: no JVD Resp: COMMON NORMALS: normal respiratory effort, No retractions and No use of accessory muscles AUSCULTATION: crackles and breath sounds absent bilateral (bases) Cardio: COMMON NORMALS: no JVD, regular rate, regular rhythm, S1 normal heart sound present and S2 normal heart sound present RATE: regular rate RHYTHM: regular rhythm HEART SOUNDS: S1 normal heart sound present and S2 normal heart sound present GI: COMMON NORMALS: Normal to inspection, nondistended, normoactive bowel sounds present, Soft to palpation, non-tender, No hepatosplenomegaly present, no masses and no bruits PALPATION: Yes Soft to palpation and Yes No hepatosplenomegaly present Extremity: COMMON NORMALS: capillary refill normal, no clubbing, cyanosis or edema, no calf tenderness and no pedal edema Psych: COMMON NORMALS: mental status grossly normal Urinary Catheter Management^: Harrison: Cath Placed During This Visit: yes, but has since been removed by the nurse Reason for Continuing Indwelling Catheter: Accurate Measurement of Urinary Output in Critically Ill Patients Urinary Catheter Date of Insertion: 09/03/20 Urinary Catheter Time of Insertion: 20:19 Date Urinary Catheter Removed: 09/10/20 Data : 09/10/20 04:32 09/10/20 04:32 Micro: Microbiology 09/10/20 10:20 Blood Culture - Preliminary Blood SPECIMEN COLLECTED 09/10/20 10:25 Blood Culture - Preliminary Blood SPECIMEN COLLECTED A&P Assessment and plan (1) Acute respiratory failure with hypoxia: Status: Acute (2) Systolic congestive heart failure: Status: Acute (3) Pneumonia due to COVID-19 virus: Status: Acute (4) NSTEMI (non-ST elevated myocardial infarction): Status: Acute (5) Peripheral arterial disease: Status: Acute (6) Septic encephalopathy: Status: Acute (7) Hypertension: Status: Acute (8) Diabetes mellitus: Status: Acute (9) Dementia: Status: Acute (10) Right-sided nosebleed: Status: Acute Additional A&P Information Right-sided nosebleed status post packing twice, Afrin, so far bleeding has stopped, repacked today, continue to hold Eliquis, likely will require it to be held on discharge, hemoglobin 8.7 9.0, x-ray of sinuses no significant fluid accumulation Acute hypoxic respiratory failure multifactorial,: Chest x-ray this morning shows bilateral lower lobe infiltrates worse on the left, concerning for developing pneumonia, patient states that she is not feeling well, remains afebrile, slightly tachypneic, lungs show crackles at bilateral lung bases, will start Levaquin, order pro-Wali, CRP, repeat blood cultures, sputum cultures, CT of the chest Acute CHF exacerbation, resolved Patient was COVID-19 positive more than 2 weeks. Patient has remained afebrile and is maintaining saturation at room air. Rapid antigen negative. Isolation precautions removed. Patient received 2-day course of remdesivir and dexamethasone with last dose on September 04. Continue to monitor viral markers including CRP, LDH, proBNP, CRP, fibrinogen, ferritin, D-dimer. Continue with Advair, Spiriva for now. Vitamin C, zinc. Oxygen supplementation keeping saturation over 92%. Eliquis 2.5 mg twice daily on hold. Will likely be held on discharge given recurrent bleeding D-dimer elevated but now trending down. For congestive heart failure: New diagnosis. Echocardiogram shows EF of 30% with grade 2 diastolic dysfunction with possible septal hypokinesis and grade 2 diastolic dysfunction with mild MR. Could be secondary to viral myocarditis though cannot rule out ischemic etiology. Patient has history of peripheral arterial disease. EKG reviewed. No LBBB. Cardiac stress test shows:myocardial perfusion imaging revealing a moderate to large areas of persistent decreased tracer uptake in the anterior, anterolateral, inferolateral, mid anteroseptal and apical segments, suggestive of myocardial scarring in the distribution of the left anterior descending artery/circumflex artery. -Had elevated troponins on admission, 6-hour 123.6, delta 17.4 likely perform a cardiac cath as outpatient, creatinine 1.3 - will need outpatient cardiac catheterization PVCs: Frequent PVCs seen on the monitor no complaints of chest pain, continue to monitor Continue with aspirin, statin. HbA1c 10.2 Strict input output charting. Daily weights. JOSE E: Most likely secondary to ATN versus KIN. Patient was aggressively diuresed since admission. Baseline creatinine 1.4-1.6. Creatinine stable today, 1.3 Urine output 5480 cc Currently on Lasix 40 mg p.o., IV hydration stopped Nephrology recommendations appreciated. Medical reconciliation done for nephrotoxic drugs. Elevated troponin: Baseline troponin I 41 which could be secondary to elevated creatinine. Most likely patient will a cardiac catheterization at some point when creatinine is better Currently no complaints of chest pain Leukocytosis: Concerning for developing left lower lobe pneumonia Started Levaquin today MRSA swab positive. Blood cultures remain negative. Repeat blood cultures ordered Bilateral lower extremity superficial venous ulcers: Look clean and dry, no indications for infection, Septic encephalopathy: Resolved. Hypertension: Goal blood pressure less than 140/90 mmHg. Continue with Coreg 3.125 mg twice daily. Continue to monitor blood pressures. Type 2 diabetes mellitus: Better controlled now. Continue with Lantus at 40 units twice daily. Insulin sliding scale every 4 hours for now at moderate to high dose. Lower extremity wounds: Continue wound care Deep tissue injury of heels: Chronic, bilaterally. Offload. Will need additional assessment once she is better. Full code. Carb consistent cardiac diet. Protonix for daily prophylaxis. Eliquis 2.5 mg twice daily. Plan: Encourage up out of bed into a chair, Levaquin for antibiotic, aggressive pulmonary toilet, incentive spirometer, flutter valve, CT of the chest, pro-Wali, CRP, hopefully discharge tomorrow Attestations Medical Necessity Statement*: Patient requires hospitalization due to acute respiratory failure multifactorial initial related to CHF, now developing left lower lobe pneumonia Coding Level of Care Code Acute Floral Specialist for Chg Fwd Diagnoses Acute respiratory failure with hypoxia J96.01 Systolic congestive heart failure I50.20 Pneumonia due to COVID-19 virus U07.1; J12.89 NSTEMI (non-ST elevated myocardial infarction) I21.4 Peripheral arterial disease I73.9 Septic encephalopathy G93.41 Hypertension I10 Diabetes mellitus E11.9 Dementia F03.90 Right-sided nosebleed R04.0
[2020-09-10 16:05] LABS: Glucose Point of Care 232 mg/dL (70-110)
--- NOTE | 2020-09-10 17:00 | DCPLANNER ---
Assisted tp to bedside commode Pt use walker for assistance i getting up. walked fairly to the bedside commode. need reassurance and prompts. Tolerated activity fairly well.
[2020-09-10] MEDS: albuterol 8 gm MDI 1 PUFF INHALATION (20:27)
[2020-09-10 20:30] LABS: Glucose Point of Care 243 mg/dL (70-110)
--- NOTE | 2020-09-10 20:32 | PC.NURSE ---
Nose bleeding x3 Scant and minimal episodes of bright pink drainage from right nares noted. Afrin [place] given x3 as PRN order. No continuos heavy nose bleeding noted.
[2020-09-10] MEDS: sertraline 50 mg Tablet 75 MG PO (20:48)
[2020-09-10] MEDS: atorvastatin 40 mg Tablet 80 MG PO (20:48)
[2020-09-10] MEDS: ondansetron 2 mg/ML SDV 2 mL 4 MG IVP (21:36)
--- NOTE | 2020-09-10 23:46 | PC.NURSE ---
PT IS RESTING IN BED. PT DOESN'T WANT TO GET UP TO USE BSC. PT REFUSED TO LET US REPOSITION THEM. PT UNHAPPY ABOUT GETTING ANOTHER PT IN HER ROOM. WILL CONTINUE TO MONITOR.
[2020-09-11] VITALS: BP 130/57; PULSE 92; RESP 18; TEMP 36.9; O2SAT 91
[2020-09-11 00:36] LABS: Glucose Point of Care 150 mg/dL (70-110)
[2020-09-11] MEDS: cefTRIAXone 1,000 MG in sodium chloride 0.9% (plus) 50 ML 100 MG IV (00:42)
[2020-09-11] MEDS: aspirin 81 mg EC Tablet PO (00:43)
[2020-09-11] MEDS: carvedilol 3.125 mg Tablet PO ×2 (00:43→12:00)
[2020-09-11 03:14] VITALS: BP 143/67; PULSE 82; RESP 16; O2SAT 93
[2020-09-11 05:11] LABS: Glucose Point of Care 69 mg/dL (70-110)
[2020-09-11 05:27] LABS: Basophils # 0.1 10^3/uL (0.0-0.1); Basophils % 0.5 %; Eosinophils # 0.2 10^3/uL (0.0-0.8); Hematocrit 33.1 % (37.0-47.0); Hemoglobin 9.9 g/dL (11.5-15.3); Lymphocytes # 1.9 10^3/uL (0.8-4.8); Lymphocytes % 17.8 %; Mean Corpuscular HGB Conc 29.9 g/dL (30.0-36.0); Mean Corpuscular Hemoglobin 27.2 pg (28.0-34.0); Mean Corpuscular Volume 90.9 fL (81-99); Mean Platelet Volume 9.7 fL (7.4-10.4); Monocytes # 1.1 10^3/uL (0.2-0.9); Monocytes % 10.3 %; Neutrophils # 7.38 10^3/uL (1.8-7.7); Neutrophils % 68.4 %; Nucleated Red Blood Cells % 0 %; Platelet Count 371 10^3/cmm (130-400); Red Blood Count 3.64 10^6/uL (4.1-5.3); Red Cell Distribution Width 17.1 % (12.1-15.1); White Blood Count 10.8 10^3/uL (4.0-10.0)
[2020-09-11 06:03] LABS: NT Pro B Type Natriuretic Pept 5114 pg/mL (0-450)
[2020-09-11 06:58] LABS: Alanine Aminotransferase 12 U/L (0-33); Albumin Level 2.4 g/dL (3.5-5.2); Alkaline Phosphatase 91 IU/L (35-105); Anion Gap 13.9 (5-19); Aspartate Amino Transferase 13 U/L (0-32); Blood Urea Nitrogen 33 mg/dL (8-23); Calcium 8.7 mg/dL (8.5-10.5); Carbon Dioxide 27 mmol/L (22-29); Chloride 108 mmol/L (98-107); Globulin 4.1 g/dL (1.3-4.6); Glucose 105 mg/dL (65-115); Magnesium 1.5 mg/dL (1.7-2.3); Osmolality Calculated 306 mOsm/kg (285-295); Phosphorus 3.6 mg/dL (2.5-4.5); Potassium 4.9 mmol/L (3.5-5.1); Sodium 144 mmol/L (136-145); Total Bilirubin 0.4 mg/dL (0.15-1.2); Total Protein 6.5 g/dL (6.6-8.7)
--- NOTE | 2020-09-11 07:32 | PC.NURSE ---
PT RESTING IN BED. BS 69 PT WAS GIVEN 4OZ OF JUICE AND A CUP OF DECAF COFFEE. PT DENIES PAIN AT THIS TIME. CHANGED AND REPOSITIONED WITH DAYSHIFT RN.
[2020-09-11] MEDS: FUROsemide 20 mg Tablet PO (07:49)
[2020-09-11] MEDS: sevelamer 800 mg Tablet PO ×2 (07:49→12:00)
[2020-09-11] MEDS: oxymetazoline 0.05% Nasal Spray 15 mL 2 SPRAY NOSTRIL-B (07:57)
[2020-09-11 08:00] VITALS: BP 161/61; PULSE 95; RESP 17; TEMP 36.8; O2SAT 93
[2020-09-11] MEDS: albuterol 8 gm MDI 1 PUFF INHALATION (08:03)
[2020-09-11 08:05] VITALS: PULSE 91; RESP 18; O2SAT 95
[2020-09-11] MEDS: multivitamin therapeutic Tablet 1 TAB PO (09:00)
[2020-09-11] MEDS: docusate sodium 100 mg Capsule PO (09:00)
[2020-09-11] MEDS: ascorbic acid 500 mg Tablet PO (09:00)
[2020-09-11] MEDS: benzonatate 100 mg Capsule PO (09:00)
[2020-09-11] MEDS: pantoprazole DR 40 mg Tablet PO (09:02)
[2020-09-11] MEDS: amlodipine 10 mg Tablet PO (09:02)
[2020-09-11] MEDS: zinc gluconate 50 mg Tablet PO (09:02)
[2020-09-11] MEDS: risperiDONE 1 mg Tablet 0.5 MG PO (09:02)
[2020-09-11] MEDS: levofloxacin-dextrose 5 % 750 MG/150 ML PREMIX 100 MG IV (09:03)
[2020-09-11] MEDS: ferric gluconate 125 MG in sodium chloride 0.9% (100 ml) 100 ML 110 MG IV (09:03)
[2020-09-11] MEDS: sertraline 50 mg Tablet 25 MG PO (09:03)
[2020-09-11] MEDS: polyethylene glycol 3350 Pkt 17 gm PO (09:03)
[2020-09-11 11:22] LABS: Glucose Point of Care 285 mg/dL (70-110)
[2020-09-11 11:25] VITALS: BP 124/65; PULSE 82; RESP 18; TEMP 36.4; O2SAT 94
[2020-09-11 11:28] VITALS: PULSE 82
[2020-09-11] MEDS: clopidogrel 75 mg Tablet PO (11:37)
--- NOTE | 2020-09-11 11:39 | P.DS_ITS ---
Discharge Providers Date of Admission: 09/03/20 23:07 Date of Discharge: September 11, 2020 Attending Provider at Admission: Juan Bustamante MD Attending Provider at Discharge: Juan Bustamante MD Primary Care Provider: Paul Warner Jr, MD Diagnoses at Discharge Discharge Diagnosis (1) Acute respiratory failure with hypoxia: Status: Acute (2) Systolic congestive heart failure: Status: Acute (3) Pneumonia due to COVID-19 virus: Status: Acute (4) NSTEMI (non-ST elevated myocardial infarction): Status: Acute (5) Peripheral arterial disease: Status: Acute (6) Septic encephalopathy: Status: Acute (7) Hypertension: Status: Acute (8) Diabetes mellitus: Status: Acute (9) Dementia: Status: Acute (10) Right-sided nosebleed: Status: Acute Reason for Visit Reason for Visit: SOB; GROIN PAIN Hospital Course Hospital Course This is a 74-year-old female with a past medical history of dementia, insulin- dependent type 2 diabetes mellitus, iron deficiency anemia, asthma on albuterol and Advil, 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 Patient was admitted to the viral ICU for acute hypoxic respiratory failure secondary to COVID-19 pneumonia, secondary bacterial pneumonia, pulmonary edema, systolic heart failure exacerbation For COVID-19 pneumonia, secondary bacterial pneumonia, she received broad- spectrum antibiotic therapy, remdesivir, Decadron, oxygen therapy, Advair, albuterol, monitored in the viral ICU. She received a 2-day course of remdesivir Decadron, clinically improved, moved to the general medical floors. Patient will be discharged to [facility] home, monitor for fevers, monitor respiratory status, if any concerns please bring back to the emergency room. I have not discharged the patient on Eliquis 2.5 mg twice daily, as she had significant nosebleeds, requiring packing, Afrin. After some period of time I resumed Eliquis, however the nose bleed returned. Can consider resuming Eliquis 2.5 twice daily for DVT and hypercoagulability prophylaxis in 2 to 3 weeks, after patient follows up with cardiology. In addition she is a high risk of bleeding given aspirin and Plavix as below. For patient's acute hypoxic respiratory failure secondary to systolic CHF exacerbation, her echocardiogram showed an EF 30%, grade 2 diastolic dysfunction, septal hypokinesis, mild MR. She received inpatient diuresis, her respiratory status improved, she was discharged on Lasix 20 mg twice daily, with close follow-up with cardiology as outpatient. Given her elevated troponins, 6-hour troponin 123.6, delta 17.4, drop in ejection fraction with septal hypokinesis, there was a concern for myopericarditis Covid related versus NSTEMI. She had a cardiac stress test, which showed revealing a moderate to large areas of persistent decreased tracer uptake in the anterior, anterolateral, inferolateral, mid anteroseptal and apical segments, suggestive of myocardial scarring in the distribution of the left anterior descending artery/circumflex artery. Cardiology was consulted, who recommended outpatient follow-up for consideration of cardiac catheterization, once creatinine improves back to baseline. Creatinine on discharge was 1.3, discharged on aspirin 81 mg daily, Plavix 75 mg daily, Coreg 3.125 twice daily, Crestor, lisinopril 5 mg daily. With a close follow-up cardiology 2 to 4 weeks. Patient has deep tissue injury bilateral lower extremities For bilateral lower extremity wounds, should follow-up with wound care For bilateral lower extremity superficial venous ulcers, continue to follow-up with wound care For acute kidney injury, secondary to ATN, creatinine has stabilized to 1.3, has good urine output, continue Lasix as of above On discharge, patient is max 2 person assist, has generalized weakness, was extensively counseled on her risk of recurrent pneumonias, recurrent deep tissue injuries, needs aggressive pulmonary toilet, incentive spirometer use, flutter valve use, working with physical therapy for gait and transfers Physical Exam Const: COMMON NORMALS: no acute distress and patient oriented x3 HENMT: COMMON NORMALS: normocephalic HEAD & SCALP: normocephalic Neck/C-Spine: COMMON NORMALS: no JVD Resp: COMMON NORMALS: normal respiratory effort, No retractions, No use of accessory muscles and clear to auscultation bilaterally AUSCULTATION: clear to auscultation bilaterally Cardio: COMMON NORMALS: no JVD, regular rate, regular rhythm, S1 normal heart sound present and S2 normal heart sound present RATE: regular rate RHYTHM: regular rhythm HEART SOUNDS: S1 normal heart sound present and S2 normal heart sound present GI: COMMON NORMALS: Normal to inspection, nondistended, normoactive bowel sounds present, Soft to palpation, non-tender, No hepatosplenomegaly present, no masses and no bruits PALPATION: Yes Soft to palpation and Yes No hepatosplenomegaly present Extremity: COMMON NORMALS: capillary refill normal, no clubbing, cyanosis or edema, no calf tenderness and no pedal edema Neuro: COMMON NORMALS: patient oriented x3 Psych: COMMON NORMALS: mental status grossly normal Urinary Catheter Management^: Harrison: Cath Placed During This Visit: yes, but has since been removed by the nurse Reason for Continuing Indwelling Catheter: Accurate Measurement of Urinary Output in Critically Ill Patients Urinary Catheter Date of Insertion: 09/03/20 Urinary Catheter Time of Insertion: 20:19 Date Urinary Catheter Removed: 09/10/20 Time Urinary Catheter Discontinued: 13:00 Discharge Data Data Completed and Pending: Completed Studies During Hospitalization Category Date Time Status CT angio chest PE protcl 42349 Urge nt Cat Scan 09/03/20 14:[address] chest wo con 7 1250 Routine Cat Scan 09/10/20 09:08 Completed Sestamibi Stress Test Request Routi ne Exams 09/07/20 06:00 Completed XR chest 1V remi ble 28706 Q48H Exams 09/06/20 06:00 Completed XR chest 1V remi ble 57816 Q48H Exams 09/08/20 06:00 Completed XR chest 1V remi ble 01885 Q48H Exams 09/10/20 06:00 Completed XR chest 1V remi ble 34329 Routine Exams 09/04/20 07:00 Completed XR chest 1V remi ble 15629 Urgent Exams 09/03/20 14:57 Completed XR pelvis 1-2V* 7 2170 Urgent Exams 09/03/20 20:29 Completed XR sinus min 3V* 42501 Routine Exams 09/09/20 11:06 Completed NM evaristo perf SPECT r/s* 39396 Routin e Nuc Med 09/07/20 17:57 Completed CV echo complete* 90242 Routine Ultrasound 09/04/20 00:15 [place] [address] Urgent Ultrasound 09/03/20 14:59 Completed US renal BI* 7677 0 Routine Ultrasound 09/06/20 07:00 Completed Pending at discharge Category Date Time Status Sestamibi Stress Test Request Routi ne Exams 09/06/20 17:57 Stop Req Anti-Neutrophil C utoplasmic AB Rout ine Lab 09/06/20 08:21 Received Blood Culture Sta t Lab 09/10/20 10:20 Results Complete Blood Co unt w/Auto AM LABS Lab 09/12/20 04:00 Ordered Comprehensive Met abolic Panel AM LA BS Lab 09/12/20 04:00 Ordered Magnesium AM LABS Lab 09/12/20 04:00 Ordered NT Pro B Type Caprice riuretic Pept QAM Lab 09/12/20 06:00 Ordered Phosphorus AM LAB S Lab 09/12/20 04:00 Ordered Protein Electroph oresis, 24 HR Rout ine Lab 09/06/20 08:26 Results Sputum Culture an d Gram Stain Stat Lab 09/10/20 08:52 Uncollected Labs from last 24 hours 09/11/20 09/11/20 09/11/20 11:10 06:17 05:08 WBC RBC Hgb Hct MCV MCH MCHC RDW Plt Count MPV Neut % (Auto) Lymph % (Auto) [place] % (Auto) Eos % (Auto) Baso % (Auto) Neut # (Auto) Lymph # (Auto) [place] # (Auto) Eos # (Auto) Baso # (Auto) Nucleated RBC % (a uto) Nucleated RBCs # Sodium 144 Potassium 4.9 Chloride 108 H Carbon Dioxide 27 Anion Gap 13.9 BUN 33 H Creatinine 1.4 H GFR Calculation Not Reportable Glucose 105 POC Glucose 285 69 Calculated Osmolal ity 306 H Calcium 8.7 Phosphorus 3.6 Magnesium 1.5 L Total Bilirubin 0.4 AST 13 ALT 12 Alkaline Phosphata se 91 NT-Pro-B Natriuret Pep Total Protein 6.5 L Albumin 2.4 L Globulin 4.1 Blood Type Rho(D) Type Antibody Screen Crossmatch 09/11/20 09/11/20 09/11/20 04:44 04:44 04:44 WBC 10.8 H RBC 3.64 L Hgb 9.9 L Hct 33.1 L MCV 90.9 MCH 27.2 L MCHC 29.9 L RDW 17.1 H Plt Count 371 MPV 9.7 Neut % (Auto) 68.4 Lymph % (Auto) 17.8 [place] % (Auto) 10.3 Eos % (Auto) 2.0 Baso % (Auto) 0.5 Neut # (Auto) 7.38 Lymph # (Auto) 1.9 [place] # (Auto) 1.1 H Eos # (Auto) 0.2 Baso # (Auto) 0.1 Nucleated RBC % (a uto) 0 Nucleated RBCs # 0.0 Sodium Cancelled Potassium Cancelled Chloride Cancelled Carbon Dioxide Cancelled Anion Gap Cancelled BUN Cancelled Creatinine Cancelled GFR Calculation Cancelled Glucose Cancelled POC Glucose Calculated Osmolal ity Cancelled Calcium Cancelled Phosphorus Cancelled Magnesium Cancelled Total Bilirubin Cancelled AST Cancelled ALT Cancelled Alkaline Phosphata se Cancelled NT-Pro-B Natriuret Pep 5114 H Total Protein Cancelled Albumin Cancelled Globulin Cancelled Blood Type Rho(D) Type Antibody Screen Crossmatch 09/11/20 09/10/20 09/10/20 00:33 20:27 16:01 WBC RBC Hgb Hct MCV MCH MCHC RDW Plt Count MPV Neut % (Auto) Lymph % (Auto) [place] % (Auto) Eos % (Auto) Baso % (Auto) Neut # (Auto) Lymph # (Auto) [place] # (Auto) Eos # (Auto) Baso # (Auto) Nucleated RBC % (a uto) Nucleated RBCs # Sodium Potassium Chloride Carbon Dioxide Anion Gap BUN Creatinine GFR Calculation Glucose POC Glucose 150 243 232 Calculated Osmolal ity Calcium Phosphorus Magnesium Total Bilirubin AST ALT Alkaline Phosphata se NT-Pro-B Natriuret Pep Total Protein Albumin Globulin Blood Type Rho(D) Type Antibody Screen Crossmatch 09/10/20 09/10/20 10:59 10:25 WBC RBC Hgb Hct MCV MCH MCHC RDW Plt Count MPV Neut % (Auto) Lymph % (Auto) [place] % (Auto) Eos % (Auto) Baso % (Auto) Neut # (Auto) Lymph # (Auto) [place] # (Auto) Eos # (Auto) Baso # (Auto) Nucleated RBC % (a uto) Nucleated RBCs # Sodium Potassium Chloride Carbon Dioxide Anion Gap BUN Creatinine GFR Calculation Glucose POC Glucose 100 Calculated Osmolal ity Calcium Phosphorus Magnesium Total Bilirubin AST ALT Alkaline Phosphata se NT-Pro-B Natriuret Pep Total Protein Albumin Globulin Blood Type A Positive Rho(D) Type Positive Antibody Screen Negative Crossmatch See Detail Vitals: Last Vital Signs Temp 97.5 F L 09/11/20 11:25 Pulse 82 09/11/20 11:28 Resp 18 09/11/20 11:25 BP 124/65 09/11/20 11:25 Pulse Ox 94 09/11/20 11:25 Discharge Plan Discharge Patient Disposition: Xfer [facility] Condition: Stable Prescriptions: New aspirin 81 mg Tablet,Delayed Release (Dr/Ec) 81 mg PO Q24H 30 Days Qty: 30 RF: 0 pantoprazole 40 mg Tablet,Delayed Release (Dr/Ec) 40 mg PO DAILY 30 Days Qty: 30 RF: 0 benzonatate 100 mg Capsule 100 mg PO TID PRN (Reason: cough) 15 Days Qty: 30 RF: 0 Levemir U-100 Insulin 100 unit/mL Solution 40 unit SUBCUT Q12H Qty: 10 RF: 0 Spiriva with HandiHaler 18 mcg Capsule, W/Inhalation Device 18 mcg inhalation DAILY.RESPIRATORY Qty: 30 RF: 0 polyethylene glycol 3350 17 gram Powder In Packet 17 g PO DAILY PRN (Reason: constipation) 30 Days Qty: 30 RF: 0 amlodipine 10 mg Tablet 10 mg PO DAILY 30 Days Qty: 30 RF: 0 carvedilol 3.125 mg Tablet 3.125 mg PO Q12H 30 Days Qty: 60 RF: 0 albuterol sulfate [Ventolin HFA] 90 mcg/actuation Hfa Aerosol Inhaler 1 puff inhalation Q4H.RESPIRATORY PRN (Reason: Shortness Of Breath) Qty: 18 RF: 0 clopidogrel 75 mg Tablet 75 mg PO DAILY 30 Days Qty: 30 RF: 0 insulin aspart U-100 [Novolog U-100 Insulin aspart] 100 unit/mL Solution See Rx Instructions .ROUTE .COMPLEX Qty: 10 RF: 0 ascorbic acid (vitamin C) [Vitamin C] 500 mg Tablet 500 mg PO DAILY 30 Days Qty: 30 RF: 0 zinc gluconate 50 mg Tablet 50 mg PO DAILY 30 Days Qty: 30 RF: 0 docusate sodium 100 mg Capsule 100 mg PO BID 30 Days Qty: 60 RF: 0 sevelamer carbonate 800 mg Tablet 800 mg PO TIDWM 15 Days Qty: 45 RF: 0 furosemide 20 mg Tablet 20 mg PO BID@08,16 30 Days Qty: 60 RF: 0 levofloxacin 750 mg tablet 750 mg PO DAILY 7 Days Qty: 7 RF: 0 Continued bisacodyl 10 mg suppository 10 mg MD DAILY PRN (Reason: Constipation) RF: 0 sennosides [senna] 8.6 mg tablet 8.6 mg PO BID PRN (Reason: Constipation) RF: 0 acetaminophen [Tylenol] 325 mg tablet 650 mg PO Q4H PRN (Reason: Pain) RF: 0 fluticasone propion-salmeterol 250-50 mcg/dose blister with device 1 inh INHALATION BID RF: 0 memantine 28 mg capsule,sprinkle,ER 24hr 28 mg PO DAILY RF: 0 Milk of Magnesia 400 mg/5 mL Suspension 30 ml PO DAILY PRN (Reason: Constipation) RF: 0 Enema Disposable 19-7 gram/118 mL Enema 118 ml MD DAILY PRN (Reason: Constipation) RF: 0 lisinopril 5 mg Tablet 5 mg PO DAILY RF: 0 Miralax 17 gram/dose Powder 17 g PO DAILY PRN (Reason: Constipation) RF: 0 sertraline 50 mg Tablet 75 mg PO BEDTIME RF: 0 Risperdal 0.5 mg Tablet 0.5 mg PO BID RF: 0 Crestor 20 mg Tablet 20 mg PO DAILY RF: 0 Discontinued Novolog Flexpen U-100 Insulin 100 unit/mL (3 mL) Insulin Pen 10 unit SUBCUT BID RF: 0 Novolog Flexpen U-100 Insulin 100 unit/mL (3 mL) Insulin Pen 18 unit SUBCUT DAILY RF: 0 Lantus U-100 Insulin 100 unit/mL Cartridge 50 unit SUBCUT BID RF: 0 Discharge Orders: Discharge Order (Routine); Ordered 09/11/20 Ordered By: Juan Bustamante Other Ambulatory Orders: Complete Blood Count w/Auto (Routine) Timeframe: 1 Day Location: Determined by Patient Ordered By: Juan Bustamante Comprehensive Metabolic Panel (Routine) Timeframe: 1 Day Facility: [facility] - Location: Lab - Main Lab Ordered By: Juan Bustamante Referrals: Alvin Kerr M.D [Physician] - 2 weeks (NSTEMI) Paul Warner Jr, MD [Primary Care Provider] - (You will have a hospital follow up. Dr. Mireles office will call you with a date and time. If you don't hear from them soon please call the office.) Discharge Diet: Cardiac Discharge Activity: Resume usual activity Patient Instructions: Benzonatate (By mouth), Furosemide (By mouth), Albuterol (By breathing), Aspirin (By mouth), Zinc Sulfate (By mouth), Ascorbic Acid (Vitamin C) (By mouth), Amlodipine (By mouth), Carvedilol (By mouth), Clopidogrel (By mouth), Sevelamer (By mouth), Pantoprazole (By mouth), Polyethylene Glycol 3350 (By mouth), Insulin Aspart Protamine/Insulin Aspart (Injection), Tiotropium (By breathing), Insulin Detemir (Injection), Epistaxis (DC), CHF Stoplight Activity Restrictions/Additional Instructions: -For your acute respiratory failure secondary to CHF, use Lasix 20 mg twice daily -Repeat blood work in 1 week -For your type 2 diabetes, inject Levemir 40 units every 12 hours, moderate dose sliding scale with NovoLog -For your pneumonia, continue Levaquin for 7 remaining days -Encourage ambulation, aggressive pulmonary toilet, incentive spirometer, flutter valve -For your NSTEMI, continue aspirin, Plavix, Crestor, Coreg, lisinopril follow-up with Dr. Kerr in 2 to 4 weeks for decision of cardiac catheterization -If you have chest pain come back to the emergency room Discharge Attestations Time Spent in Discharge Care*: less than 30 min Quality Metrics Clinical Quality Measures During this hospital stay, did patient experience: None Coding Level of Care Code Acute Laundry Tech for Dinora Fwd Diagnoses Acute respiratory failure with hypoxia J96.01 Systolic congestive heart failure I50.20 Pneumonia due to COVID-19 virus U07.1; J12.89 NSTEMI (non-ST elevated myocardial infarction) I21.4 Peripheral arterial disease I73.9 Septic encephalopathy G93.41 Hypertension I10 Diabetes mellitus E11.9 Dementia F03.90 Right-sided nosebleed R04.0
[2020-09-11] MEDS: magnesium sulfate premix 2 GM/50 ML PIGGYBACK IV (12:01)
--- NOTE | 2020-09-11 14:20 | PC.NURSE ---
report called to [place] Hand-off report called to [facility] staff at [facility]. Discharge Packet provided.
--- NOTE | 2020-09-11 14:30 | PC.NURSE ---
Informed Dgtr Crystal of pt's discharge back to alf Dgtr appreciated the call and notification.
--- NOTE | 2020-09-11 15:31 | PC.NURSE ---
Transport here for ride to [facility]
--- NOTE | 2020-09-11 15:33 | PC.NURSE ---
[id number] pt were staying they said no clothes. Pt wallet and glasses are with him. [facility] called for some clothes to provide the pt. they have small shirt and pajama bottoms. OT Candace in room helping dress the pt. Informed family.
[2020-09-12 20:38] LABS: ANCA Interp Negative (Negative)
== END 2020-09-11 15:31 | disposition skilled nursing facility (03) | DRG 177 ==
LOC: ER 22:38 → ICU 23:30 → CSU 09-04 23:52
PROVIDERS: Internal Medicine; Internal Medicine Nephrology; Student in an Organized Health Care Education/Training Program; Admitting Provider Family Medicine; Emergency Provider Emergency Medicine; PCP Family Medicine; Visit Provider Family Medicine
DX: U07.1 COVID-19 (principal); I50.21 Acute systolic (congestive) heart failure; J96.01 Acute respiratory failure with hypoxia; J15.9 Unspecified bacterial pneumonia; G93.41 Metabolic encephalopathy; I40.0 Infective myocarditis; I21.4 Non-ST elevation (NSTEMI) myocardial infarction; N17.0 Acute kidney failure with tubular necrosis; J12.89 Other viral pneumonia; I13.0 Hypertensive heart and chronic kidney disease with heart failure and stage 1 through stage 4 chronic kidney disease, or unspecified chronic kidney disease; E87.4 Mixed disorder of acid-base balance; F03.90 Unspecified dementia, unspecified severity, without behavioral disturbance, psychotic disturbance, mood disturbance, and anxiety; E11.65 Type 2 diabetes mellitus with hyperglycemia; E11.51 Type 2 diabetes mellitus with diabetic peripheral angiopathy without gangrene; E11.40 Type 2 diabetes mellitus with diabetic neuropathy, unspecified; Z79.4 Long term (current) use of insulin; D50.9 Iron deficiency anemia, unspecified; J45.909 Unspecified asthma, uncomplicated; Z89.421 Acquired absence of other right toe(s); F32.9 Major depressive disorder, single episode, unspecified; E78.5 Hyperlipidemia, unspecified; N18.30 Chronic kidney disease, stage 3 unspecified; E11.22 Type 2 diabetes mellitus with diabetic chronic kidney disease; B97.89 Other viral agents as the cause of diseases classified elsewhere; I25.5 Ischemic cardiomyopathy; L89.896 Pressure-induced deep tissue damage of other site; Z79.51 Long term (current) use of inhaled steroids; B95.62 Methicillin resistant Staphylococcus aureus infection as the cause of diseases classified elsewhere; R04.0 Epistaxis
CPT/HCPCS: 12345; 36415; 36416; 36430; 36600; 51702; 70220; 71045; 71250; 71275; 72170; 72190; 76770; 78452; 80048; 80051; 80053; 80202; 82009; 82310; 82330; 82436; 82550; 82570; 82728; 82803; 82805; 82962; 83036; 83516; 83540; 83550; 83605; 83615; 83735; 83880; 83970; 84100; 84132; 84133; 84145; 84155; 84165; 84300; 84443; 84484; 85025; 85378; 85384; 85610; 86140; 86706; 86803; 86850; 86900; 86920; 87040; 87340; 87426; 87641; 93005; 93017; 93306; 93970; 94640; 96372; 96375; 97110; 97161; 97166; 97530; 97535; 99284; A9500; J0456; J0696; J1100; J1650; J1815; J1940; J1956; J2405; J2785; J2916; J3475; J3535; J7030; J7040; J7050; P9016; Q3014; Q9967

== ENCOUNTER 2020-12-15 17:45 | Outpatient (CLI) | payer MEDICARE, MEDICAID, SELFPAY ==
[2020-12-15 18:13] LABS: Basophils # 0.1 10^3/uL (0.0-0.1); Basophils % 0.8 %; Eosinophils # 0.1 10^3/uL (0.0-0.8); Eosinophils % 1.1 %; Hematocrit 51.5 % (37.0-47.0); Hemoglobin 15.9 g/dL (11.5-15.3); Lymphocytes # 1.4 10^3/uL (0.8-4.8); Lymphocytes % 13.3 %; Mean Corpuscular HGB Conc 30.9 g/dL (30.0-36.0); Mean Corpuscular Hemoglobin 29.7 pg (28.0-34.0); Mean Corpuscular Volume 96.3 fL (81-99); Mean Platelet Volume 10.5 fL (7.4-10.4); Monocytes # 0.4 10^3/uL (0.2-0.9); Monocytes % 4.1 %; Neutrophils % 80.3 %; Nucleated Red Blood Cells % 0 %; Platelet Count 297 10^3/cmm (130-400); Red Blood Count 5.35 10^6/uL (4.1-5.3); Red Cell Distribution Width 14.1 % (12.1-15.1); White Blood Count 10.3 10^3/uL (4.0-10.0)
[2020-12-15 18:36] LABS: Alanine Aminotransferase 17 U/L (0-33); Albumin Level 3.8 g/dL (3.5-5.2); Alkaline Phosphatase 111 IU/L (35-105); Anion Gap 22.5 (5-19); Aspartate Amino Transferase 29 U/L (0-32); Blood Urea Nitrogen 41 mg/dL (8-23); Calcium 10.1 mg/dL (8.5-10.5); Carbon Dioxide 23 mmol/L (22-29); Chloride 97 mmol/L (98-107); Globulin 3.8 g/dL (1.3-4.6); Glucose 434 mg/dL (65-115); Osmolality Calculated 313 mOsm/kg (285-295); Potassium 5.5 mmol/L (3.5-5.1); Sodium 137 mmol/L (136-145); Total Bilirubin 0.8 mg/dL (0.15-1.2); Total Protein 7.6 g/dL (6.6-8.7)
== END 2020-12-15 17:46 | disposition home or self-care (01) ==
LOC: LAB 17:53
PROVIDERS: Family Medicine; PCP Family Medicine; Visit Provider Nurse Practitioner Family
DX: R11.2 Nausea with vomiting, unspecified (principal)
CPT/HCPCS: 80053; 85025